=== PATIENT | female | born 2000 | race African-American/Black ===

== ENCOUNTER 2020-08-26 13:33 | Inpatient (IN) | payer MEDICAID, SELFPAY ==
--- NOTE | ~2020-08-26 | CT_ITS ---
EXAMINATION: CT abdomen pelvis w con DATE: 08/26/2020 14:48 INDICATION: Generalized abdominal pain. TECHNIQUE: Computed tomography (CT) of the abdomen and pelvis was performed with 100 mL Omnipaque 350 intravenous contrast. Automated exposure control and iterative reconstruction technique were employe d. The dose-length product was 536.67 mGy-cm. COMPARISON: None. FINDINGS: The visualized portions of the lung bases are clear without pneumonia or pleural effusion. The heart size is normal. No pericardial effusion. The liver demonstrates focal steatosis adjacent to the falciform ligament. The gallbladder, spleen, pancreas, adrenal glands, and kidneys are normal. T he appendix is normal. There is liquid stool in colon suggestive of diarrhea. The distal ileum demons trates mild wall thickening and mucosal hyperemia. There are no dilated loops of bowel. There are no pathologically enlarged lymph nodes. There is no free intraperitoneal fluid. The bones are unremarkab le. IMPRESSION: 1. Terminal ileitis, consistent with infection versus Crohn's disease. Reviewed, dictated and finalized at location A. [employer]
[2020-08-26 13:38] VITALS: BP 121/84; PULSE 56; RESP 18; TEMP 36.8; O2SAT 99
--- NOTE | 2020-08-26 13:59 | ED.ABDPAIN ---
HPI - Abdominal Pain General Chief Complaint: Abdominal Pain <Israel Winn MD - Last Filed: 08/28/20 17:33> Stated Complaint: abdominal pain, weakness <Israel Winn MD - Last Filed: 08/28/20 17:33> Time Seen by Provider: 08/26/20 13:35 <Israel Winn MD - Last Filed: 08/28/20 17:33> History of Present Illness HPI narrative: Nausea and vomiting for the past 8 days. This is associated with both upper and lower abdominal pain. She has had 3 previous ED visits. She reports that she was diagnosed with a UTI the first time, although this does not appear on her discharge paperwork. She reports that she had a CT, which she was told was negative. She was given zofran and dicyclomine, which she has been taking without relief. <Israel Winn MD - Last Filed: 08/28/20 17:33> Related Data Home Medications: Home Medications Medication Instructions Recorded Confirmed dicyclomine 10 mg PO DAILY 08/26/20 08/26/20 ondansetron 4 mg PO TID PRN 08/26/20 08/26/20 <Israel Winn MD - Last Filed: 08/28/20 17:33> Allergies/Adverse Reactions: Allergies Allergy/AdvReac Type Severity Reaction Status Date / Time No Known Allergies Allergy Verified 08/26/20 13:44 <Israel Winn MD - Last Filed: 08/28/20 17:33> Review of Systems Review of Systems: All systems reviewed & are unremarkable except as noted in HPI and below <Israel Winn MD - Last Filed: 08/28/20 17:33> Constitutional: Constitutional: Reports fatigue, Denies fever(s) and Reports weakness <Israel Winn MD - Last Filed: 08/28/20 17:33> Cardiovascular: Cardiovascular: Denies chest pain <Israel Winn MD - Last Filed: 08/28/20 17:33> Respiratory: Respiratory: Denies dyspnea <Israel Winn MD - Last Filed: 08/28/20 17:33> Gastrointestinal: Gastrointestinal: Reports abdominal pain, Reports nausea and Reports vomiting <Israel Winn MD - Last Filed: 08/28/20 17:33> Genitourinary: Genitourinary: Denies hematuria and Denies dysuria <Israel Winn MD - Last Filed: 08/28/20 17:33> Neurologic: Denies confusion, Reports dizziness and Reports weakness <Israel Winn MD - Last Filed: 08/28/20 17:33> [facility] Past Medical History Medical History: Medical History (Updated 08/27/20 @ 16:14 by Solo Hernandez MD) Abdominal pain Healthy female adult Nausea and vomiting in adult <Israel Winn MD - Last Filed: 08/28/20 17:33> Family History Family History: Family History Other Unknown family medical history <Israel Winn MD - Last Filed: 08/28/20 17:33> Social History Social History: Social History Smoking status: Never smoker Alcohol intake: never Substance use: never Gender identity (if verbalized by the patient): Female Spiritual care concerns: No <Israel Winn MD - Last Filed: 08/28/20 17:33> Exam Const: General: no acute distress, alert and ill appearing <Israel Winn MD - Last Filed: 08/28/20 17:33> Orientation/consciousness: patient oriented x3 <Israel Winn MD - Last Filed: 08/28/20 17:33> HENMT: Head: normal to inspection <Israel Winn MD - Last Filed: 08/28/20 17:33> Neck: Neck: normal visual inspection and no lymphadenopathy <Israel Winn MD - Last Filed: 08/28/20 17:33> Resp: Effort & Inspection: normal respiratory effort <Israel Winn MD - Last Filed: 08/28/20 17:33> Auscultation: clear to auscultation bilaterally, no rales, no rhonchi and no wheezes <Israel Winn MD - Last Filed: 08/28/20 17:33> Cardio: Jugular venous distension: no JVD <Israel Winn MD - Last Filed: 08/28/20 17:33> Rate: regular rate <Israel Winn MD - Last Filed: 08/28/20 17:33> Rhythm: regular rhythm <Israel Winn MD - Last Filed:
[2020-08-26 14:06] LABS: Basophils Absolute Auto 0.1 K/mm3 (0.0-0.1); Basophils Percent Auto 0.4 % (0.2-1.2); Eosinophils Percent Auto 0.2 % (0-4.4); Hematocrit 47.3 % (37.0-47.0); Hemoglobin 16.3 g/dL (12.0-15.0); Immature Granulocyte Absolute 0.04 K/mm3 (0.00-0.031); Immature Granulocyte Percent A 0.3 % (0-0.5); Lymphocytes Absolute Auto 1.97 K/mm3 (0.9-3.2); Lymphocytes Percent Auto 14.1 % (18.3-44.2); Mean Corpuscular HGB Conc 34.5 g/dl (32-36); Mean Corpuscular Hemoglobin 29.9 pg (26-34); Mean Corpuscular Volume 86.6 fl (80-100); Mean Platelet Volume 9.9 fl (7.4-10.4); Monocytes Absolute Auto 1.2 K/mm3 (0.1-0.6); Monocytes Percent Auto 8.6 % (2.6-8.5); Neutrophils Absolute Auto 10.7 K/mm3 (1.3-6.7); Neutrophils Percent Auto 76.4 % (45.5-73.1); Platelet Count Result 463 k/mm3 (150-375); Red Blood Count 5.46 M/mm3 (4.2-5.4); Red Cell Distribution Width 11.9 % (11.5-14.5)
[2020-08-26 14:20] LABS: Alanine Aminotransferase 16 U/L (4-35); Albumin Level 4.9 g/dL (3.7-5.6); Alkaline Phosphatase 83 U/L (45-116); Anion Gap 12 mmol/L (8-16); Aspartate Amino Transferase 22 U/L (14-36); Bilirubin,Total 0.8 mg/dL (0.2-1.3); Blood Urea Nitrogen 10 mg/dL (8-21); Carbon Dioxide 36 mmol/L (22-30); Chloride 89 mmol/L (98-107); Estimated CRCL calculation 81 ml/min; Estimated Glomerular Filt Rate > 60; Glucose 99 mg/dL (65-105); Lipase 73 U/L (23-300); Sodium 137 mmol/L (134-143)
[2020-08-26 14:52] LABS: Add Urine Microscopic? YES; Appearance Urine Clear (Clear); Bacteria Urine Trace /hpf; Bilirubin Urine Negative (Negative); Color Urine Yellow (Yellow); Glucose Urine UA Negative (Negative); Ketones Urine Trace mg/dL (Negative); Leukocyte Esterase Ur 1+ LEU/UL (Negative); Mucus Urine Few /lpf; Nitrate Urine Negative (Negative); Protein Urine 2+ mg/dL (Negative); RBC Urine 0-2 /hpf (0-2); Specific Grav Ur 1.019 (1.001-1.035); Squamous Epithelial Cell Urine Many /hpf (Few); Urobilinogen Urine Negative mg/dL (<2.0)
[2020-08-26 14:53] LABS: Blood Urine Negative (Negative)
[2020-08-26] MEDS: DEXTROSE 5%/0.45% SOD CHL 1,000 ML 1000 ML IV CONT (14:56)
[2020-08-26] MEDS: SODIUM CHLORIDE 0.9% IV 1,000 ML 999 ML IV CONT (14:56)
--- NOTE | 2020-08-26 15:20 | PC.NURSE ---
1520: Pt Godfather Steve called wanting information on pt. Told him I could not give him information because he was not on pts chart. He asked if I could speak with pt to get permission to give him information. Pt verified with this RN that it was ok to talk to him about her.
[2020-08-26 15:41] VITALS: BP 135/90; PULSE 91; RESP 18; O2SAT 100
[2020-08-26] MEDS: METOCLOPRAMIDE HCL INJ 10 MG/2 ML VIAL IV PUSH (16:18)
[2020-08-26 17:46] VITALS: BP 119/78; PULSE 64; RESP 18; O2SAT 97
--- NOTE | 2020-08-26 18:23 | ADMGEN ---
This patient, Kirsten Shen, was admitted to Medical Room 342-01. Patient/family oriented to hospital policies and general routines including ID bracelet, bed and alarms, visiting hours, pain management, procedures, bathroom and other care routines, personal items, smoking policy, room service/diet, and visiting hours. Information on how to activate the Rapid Response Team has been discussed. Patient/Family are encouraged to report perceived risks to care and to ask questions if they do not understand what they are told or what they should do.
[2020-08-26] MEDS: SODIUM CHLORIDE 0.9% IV 1,000 ML 125 ML IV CONT (18:28)
[2020-08-26 18:29] VITALS: BMI 34.7
[2020-08-26 18:30] VITALS: BP 137/95; PULSE 79; RESP 18; TEMP 36.2; O2SAT 100; BMI 34.6
[2020-08-26] MEDS: ONDANSETRON INJ 4 MG/2 ML VIAL IV PUSH (18:43)
[2020-08-26] MEDS: CIPROFLOXACIN 400 MG/D5W 200ML 200 ML 200 MG IVPB (19:34)
[2020-08-26 19:46] VITALS: BP 113/67; PULSE 81; RESP 14; TEMP 36.7; O2SAT 99
[2020-08-26] MEDS: metroNIDAZOLE 500 MG/ISO 100ML 500 MG/100 ML BAG 100 MG IVPB (20:42)
--- NOTE | 2020-08-26 21:34 | PM.IMHP ---
H&P: HPI History of Present Illness Date/Time: 08/26/20 21:34 Chief Complaint: abdominal pain, nausea, and vomiting for 8 days Narrative: This is a pleasant 19-year-old female who presented to the hospital with complaint diffuse abdominal pain with associated nausea and vomiting for the past 8 days. Patient has had multiple visits to the emergency department in told various different things including at 1st that she had a urinary tract infection. tonight the patient was evaluated emergency room and CT abdomen pelvis demonstrated terminal ileitis. Routine labs were obtained which showed leukocytosis of 14,000. The patient was treated with IV fluids, Zofran, and antibiotics. ER provider has consulted gastroenterology to evaluate the patient. On my encounter with the patient minerva I found her asleep in bed. Upon waking her she denies any abdominal pain, nausea, or vomiting at this time. It appears that she was given some clear liquids earlier in seemed to have tolerated that. She denies any fever chills, chest pain, shortness of breath, or other symptoms at this time. Review of Systems Review of Systems: All systems reviewed & are unremarkable except as noted in HPI and below PMFSH Past Medical History Medical History Healthy female adult Family History Family History Other Unknown family medical history Social History Social History Smoking status: Never smoker Alcohol intake: never Substance use: never Gender identity (if verbalized by the patient): Female Spiritual care concerns: No Comments Past medical/surgical histories reviewed and unremarkable. Meds Home Medications and Allergies Home Medications Medication Instructions Recorded Confirmed Type dicyclomine 10 mg PO DAILY 08/26/20 08/26/20 History ondansetron 4 mg PO TID PRN 08/26/20 08/26/20 History Allergies Allergy/AdvReac Type Severity Reaction Status Date / Time No Known Allergies Allergy Verified 08/26/20 13:44 Vital Signs Vital Signs - 24 hr 08/26/20 13:38 08/26/20 15:41 08/26/20 17:46 Temperature 36.8 C Pulse Rate 56 L 91 64 Respiratory Rate 18 18 18 Blood Pressure 121/84 135/90 119/78 Pulse Oximetry 99 100 97 08/26/20 18:30 08/26/20 19:46 Temperature 36.2 C L 36.7 C Pulse Rate 79 81 Respiratory Rate 18 14 Blood Pressure 137/95 H 113/67 Pulse Oximetry 100 99 Exam Const: General: cooperative, healthy appearing and no acute distress Nutritional Appearance: obese Orientation/consciousness: patient oriented x3 HENMT: Head: normal to inspection General nose exam: Normal external nose present Face and sinus: normal facial exam Mouth: Yes Normal oral and palatal mucosa present and Yes oropharynx normal Eyes: Pupils: Equal, round and reactive pupils present EOM: EOMs intact bilaterally Neck: Neck: supple and no JVD Thyroid: thyroid normal Lymphatic: lymphadenopathy not noted Resp: Effort & Inspection: normal respiratory effort Auscultation: clear to auscultation bilaterally Cardio: Rate: regular rate Rhythm: regular rhythm Heart sounds: no murmurs GI: Inspection: normal to inspection Auscultation: normal bowel sounds Skin: General skin exam: normal color and no rashes or lesions noted Neuro: General: patient oriented x3 Cranial nerves: Yes CN's II-XII intact bilaterally and Yes Equal, round and reactive pupils present Speech: normal speech Motor exam (neuro): 5/5 motor strength present throughout Sensory Exam: normal sensation Extrem: General: normal to inspection and no edema Psych: Mental Status: mental status grossly normal Affect: normal affect H&P: Results Labs Labs: Short CBC 08/26/20 Range/Units 13:54 WBC 14.0 H (4.5-10.0) K/mm3 Hgb 16.3 H (12.0-15.0) g/dL Hct 47.3 H (37.0-47.0)
[2020-08-27] MEDS: metroNIDAZOLE 500 MG/ISO 100ML 500 MG/100 ML BAG 100 MG IVPB ×3 (03:35→20:48)
[2020-08-27] MEDS: SODIUM CHLORIDE 0.9% IV 1,000 ML 125 ML IV CONT ×3 (03:37→23:52)
[2020-08-27] MEDS: MORPHINE SULFATE (*CRX) 4 MG/ML INJ IV PUSH ×3 (03:40→21:04)
[2020-08-27 05:10] VITALS: BP 136/81; PULSE 65; RESP 14; TEMP 36.2; O2SAT 98
[2020-08-27] MEDS: CIPROFLOXACIN 400 MG/D5W 200ML 200 ML 200 MG IVPB ×2 (05:13→17:46)
[2020-08-27 05:48] LABS: Basophils Percent Auto 0.4 % (0.2-1.2); Eosinophils Absolute Auto 0.1 K/mm3 (0-0.3); Eosinophils Percent Auto 0.7 % (0-4.4); Hematocrit 39.8 % (37.0-47.0); Hemoglobin 13.2 g/dL (12.0-15.0); Immature Granulocyte Absolute 0.03 K/mm3 (0.00-0.031); Immature Granulocyte Percent A 0.3 % (0-0.5); Lymphocytes Absolute Auto 1.93 K/mm3 (0.9-3.2); Lymphocytes Percent Auto 18.5 % (18.3-44.2); Mean Corpuscular HGB Conc 33.2 g/dl (32-36); Mean Corpuscular Hemoglobin 29.8 pg (26-34); Mean Corpuscular Volume 89.8 fl (80-100); Mean Platelet Volume 10.1 fl (7.4-10.4); Monocytes Absolute Auto 0.9 K/mm3 (0.1-0.6); Monocytes Percent Auto 8.8 % (2.6-8.5); Neutrophils Absolute Auto 7.5 K/mm3 (1.3-6.7); Neutrophils Percent Auto 71.3 % (45.5-73.1); Platelet Count Result 325 k/mm3 (150-375); Red Blood Count 4.43 M/mm3 (4.2-5.4); Red Cell Distribution Width 11.9 % (11.5-14.5); White Blood Count 10.5 K/mm3 (4.5-10.0)
[2020-08-27 06:09] LABS: Anion Gap 7 mmol/L (8-16); Blood Urea Nitrogen 6 mg/dL (8-21); Calcium 8.5 mg/dL (8.9-10.7); Carbon Dioxide 31 mmol/L (22-30); Chloride 97 mmol/L (98-107); Estimated CRCL calculation 81 ml/min; Estimated Glomerular Filt Rate > 60; Glucose 87 mg/dL (65-105); Potassium 3.4 mmol/L (3.4-5.0); Sodium 135 mmol/L (134-143)
[2020-08-27 09:48] VITALS: O2SAT 98
[2020-08-27 12:54] VITALS: BMI 34.6
[2020-08-27 14:00] VITALS: BP 125/95; PULSE 71; RESP 16; TEMP 36.6; O2SAT 100
--- NOTE | 2020-08-27 14:20 | PM.IMPN ---
Progress Note: A&P Assessment and Plan (1) Ileitis, terminal: Qualifiers: Digestive disease complication type: without complication Qualified Code(s): K50.00 - Crohn's disease of small intestine without complications Code(s): K50.00 - Crohn's disease of small intestine without complications Status: Acute Assessment and Plan: Patient came in with abdominal pain, nausea and vomiting. CT scan showed terminal ileitis consistent with infection versus Crohn's disease. Patient has never had similar symptoms before and has not seen a GI doctor in the past. She has been placed NPO for bowel rest, continue IV fluids and IV antibiotics. GI has been consulted to see her for further evaluation and treatment Continue monitoring. Antiemetics as needed. Continue IV antibiotics. Stool studies. (2) Leukocytosis: Qualifiers: Leukocytosis type: unspecified Qualified Code(s): D72.829 - Elevated white blood cell count, unspecified Code(s): D72.829 - Elevated white blood cell count, unspecified Status: Acute Assessment and Plan: Improved leukocytosis with admission as well as antibiotics and fluids. Appears to be secondary to ileitis. Monitor CBCD. (3) Dehydration: Code(s): E86.0 - Dehydration Status: Acute Assessment and Plan: Appears to be dehydrated from nausea and vomiting for the last week. Continue IV fluids. Monitor vital signs and urine output closely. Time Spent With Patient Time with patient: 25 - 35 minutes Subjective Date/time seen: 08/27/20 14:20 Interval history: Date of service 08/27/2020: Patient reports her vomiting has stopped. He denies much nausea at this time. He still has some abdominal pain mostly located her and tell her line midline. She denies any radiation of pain. She describes the pain as cramping only sure intermittently. Patient's fevers or chills have resolved. She denies any chest pain, shortness breath, cough, leg swelling, calf pain or any other symptoms at this time any Review of Systems Review of Systems: All systems reviewed & are unremarkable except as noted in HPI and below Exam Narrative: Exam Narrative: General: 19-year-old woman laying flat in bed head elevated at 45?. Appears slightly uncomfortable. In no acute distress. Skin: No jaundice or cyanosis. Good skin turgor. Neck: Full range of motion. Supple. Respiratory: Lungs are clear to auscultation bilaterally. No bony chest wall tenderness. Cardiovascular: The heart has a regular rate and rhythm without murmur. Lower extremities: No lower extremity edema. Distal pulses are easily palpated. No calf tenderness to palpation. Gastrointestinal: Tenderness to palpation of mid abdomen, tenderness to percussion of abdomen. Otherwise it is soft. Active bowel sounds. Psychiatric: Lucid and oriented. Memory intact. Neurologic: No focal deficits. Speech is clear. No facial drooping. Objective Data Vital Signs Vital Signs: Vital Signs - 24 hr 08/26/20 15:41 08/26/20 17:46 08/26/20 18:30 Temperature 97.1 F L Pulse Rate 91 64 79 Respiratory Rate 18 18 18 Blood Pressure 135/90 119/78 137/95 H Pulse Oximetry 100 97 100 08/26/20 19:46 08/27/20 05:10 08/27/20 09:48 Temperature 98.1 F 97.2 F L Pulse Rate 81 65 Respiratory Rate 14 14 Blood Pressure 113/67 136/81 Pulse Oximetry 99 98 98 08/27/20 14:00 Temperature 97.8 F Pulse Rate 71 Respiratory Rate 16 Blood Pressure 125/95 H Pulse Oximetry 100 Intake/Output Intake/Output: Intake & Output 08/24/20 08/25/20 08/26/20 08/27/20 23:59 23:59 23:59 23:59 Intake Total 2049 1600 Output Total 600 Balance 2049 1000 Meds/Results Medications: Active Medications Generic Name Dose Route Start Last Admin Trade Name Freq PRN
--- NOTE | 2020-08-27 16:05 | WPDGICN ---
Assessment and Plan Assessment and plan (1) Ileitis, terminal: Qualifiers: Digestive disease complication type: without complication Qualified Code(s): K50.00 - Crohn's disease of small intestine without complications Code(s): K50.00 - Crohn's disease of small intestine without complications Status: Acute Assessment and Plan: probably infectious in nature, she has been sick for almost 8 days get stool cultures, continue with medical treatment will get inflammatory markers eventually will need colonoscopy, IBD can be in differential but acute onset (2) Nausea and vomiting in adult: Code(s): R11.2 - Nausea with vomiting, unspecified Status: Acute Assessment and Plan: start liquid diet and reassess antiemetics prn (3) Abdominal pain: Code(s): R10.9 - Unspecified abdominal pain Status: Acute (4) Dehydration: Code(s): E86.0 - Dehydration Status: Acute Assessment and Plan: better after fluids (5) Leukocytosis: Qualifiers: Leukocytosis type: unspecified Qualified Code(s): D72.829 - Elevated white blood cell count, unspecified Code(s): D72.829 - Elevated white blood cell count, unspecified Status: Acute Assessment and Plan: improved GI Consult Note Consult date/time: 08/27/20 16:05 Reason for consult: n/v, abdominal pain, ileitis HPI: Kirsten Shen is a 19 year old female with not major medical problems here with new onset of pain in abdominen, moderate to severe, crampy in nature with nausea and vomiting, symptoms started New Year's brijesh. She has been in other ERx3, fist time told thaa probably had uti. Given medication and sent home but still sick, also 2-3 loose stools daily and chills, also mouth dry and feels dehydrated. Denies sick contacts or eating outside. She denies previous GI history, normally has normal BM's. CT abdomen pelvis demonstrated terminal ileitis. Labs showed leukocytosis of 14,000, normal liver enzymes and lipase. She was admitted to hospital and started on antibiotics. Never had colonoscopy. Review of Systems Constitutional: Constitutional: Reports chills Eyes: Eyes: Denies blurry vision ENT: Reports Normal hearing present Cardiovascular: Cardiovascular: Denies lightheadedness Respiratory: Respiratory: Denies dyspnea Gastrointestinal: Gastrointestinal: Reports abdominal pain, Reports diarrhea, Reports nausea and Reports vomiting Genitourinary: Genitourinary: Denies hematuria Musculoskeletal: Musculoskeletal: Denies neck pain Integumentary/Breasts: Skin/Breast: Denies rash Neurologic: Denies confusion Psychiatric: Psychiatric: Denies behavioral changes Endocrine: Endocrine: Denies cold intolerance PMFSH Past Medical History Medical History Healthy female adult Family History Family History Other Unknown family medical history Social History Social History Smoking status: Never smoker Alcohol intake: never Substance use: never Gender identity (if verbalized by the patient): Female Spiritual care concerns: No Meds Home Medications and Allergies Home Medications Medication Instructions Recorded Confirmed Type dicyclomine 10 mg PO DAILY 08/26/20 08/26/20 History ondansetron 4 mg PO TID PRN 08/26/20 08/26/20 History Allergies Allergy/AdvReac Type Severity Reaction Status Date / Time No Known Allergies Allergy Verified 08/26/20 13:44 Vital Signs Vital Signs - 24 hr 08/26/20 17:46 08/26/20 18:30 08/26/20 19:46 Temperature 97.1 F L 98.1 F Pulse Rate 64 79 81 Respiratory Rate 18 18 14 Blood Pressure 119/78 137/95 H 113/67 Pulse Oximetry 97 100 99 08/27/20 05:10 08/27/20 09:48 08/27/20 14:00 Temperature 97.2 F L 97.8 F Pulse Rate 65 71 Respiratory Rate 14 16 Bl
[2020-08-27 22:00] VITALS: BP 128/87; PULSE 64; RESP 21; TEMP 36.1; O2SAT 100
[2020-08-28] MEDS: ONDANSETRON INJ 4 MG/2 ML VIAL IV PUSH (04:30)
[2020-08-28] MEDS: metroNIDAZOLE 500 MG/ISO 100ML 500 MG/100 ML BAG 100 MG IVPB ×3 (04:31→20:07)
[2020-08-28 06:00] VITALS: BP 143/94; PULSE 96; RESP 21; TEMP 36.6; O2SAT 100
[2020-08-28 06:10] LABS: Basophils Percent Auto 0.4 % (0.2-1.2); Eosinophils Absolute Auto 0.1 K/mm3 (0-0.3); Eosinophils Percent Auto 1.2 % (0-4.4); Hematocrit 37.4 % (37.0-47.0); Hemoglobin 12.4 g/dL (12.0-15.0); Immature Granulocyte Absolute 0.03 K/mm3 (0.00-0.031); Immature Granulocyte Percent A 0.3 % (0-0.5); Lymphocytes Absolute Auto 2.04 K/mm3 (0.9-3.2); Lymphocytes Percent Auto 21.6 % (18.3-44.2); Mean Corpuscular HGB Conc 33.2 g/dl (32-36); Mean Corpuscular Volume 87.6 fl (80-100); Monocytes Absolute Auto 0.8 K/mm3 (0.1-0.6); Monocytes Percent Auto 7.9 % (2.6-8.5); Neutrophils Absolute Auto 6.5 K/mm3 (1.3-6.7); Neutrophils Percent Auto 68.6 % (45.5-73.1); Platelet Count Result 308 k/mm3 (150-375); Red Blood Count 4.27 M/mm3 (4.2-5.4); Red Cell Distribution Width 11.6 % (11.5-14.5); White Blood Count 9.5 K/mm3 (4.5-10.0)
[2020-08-28] MEDS: CIPROFLOXACIN 400 MG/D5W 200ML 200 ML 200 MG IVPB ×2 (06:24→17:17)
[2020-08-28 06:55] LABS: Anion Gap 6 mmol/L (8-16); Blood Urea Nitrogen 4 mg/dL (8-21); Calcium 8.5 mg/dL (8.9-10.7); Carbon Dioxide 29 mmol/L (22-30); Chloride 99 mmol/L (98-107); Estimated CRCL calculation 100 ml/min; Estimated Glomerular Filt Rate > 60; Glucose 94 mg/dL (65-105); Magnesium 1.7 mg/dL (1.6-2.3); Potassium 3.4 mmol/L (3.4-5.0); Sodium 134 mmol/L (134-143)
[2020-08-28 07:15] LABS: CRP < 0.5 mg/dL (<1.0)
[2020-08-28 07:22] LABS: Erythrocyte Sedimentation Rate 26 mm/hr (0-20)
[2020-08-28 08:00] VITALS: PULSE 96; RESP 21; O2SAT 100
--- NOTE | 2020-08-28 10:55 | WPDGIPROGNO ---
Progress Note: A&P Assessment and Plan (1) Ileitis, terminal: Qualifiers: Digestive disease complication type: without complication Qualified Code(s): K50.00 - Crohn's disease of small intestine without complications Code(s): K50.00 - Crohn's disease of small intestine without complications Status: Acute Assessment and Plan: probably infectious since acute episode but also could be IBD for which at some point will need to have a colonoscopy continue with antibiotics for now and slowly advance diet, she is feeling better crp was normal stool samples obtained but result pending (2) Nausea and vomiting in adult: Code(s): R11.2 - Nausea with vomiting, unspecified Status: Acute Assessment and Plan: on antiemetics, better (3) Leukocytosis: Qualifiers: Leukocytosis type: unspecified Qualified Code(s): D72.829 - Elevated white blood cell count, unspecified Code(s): D72.829 - Elevated white blood cell count, unspecified Status: Acute Assessment and Plan: resolved (4) Abdominal pain: Code(s): R10.9 - Unspecified abdominal pain Status: Acute Assessment and Plan: improved (5) Dehydration: Code(s): E86.0 - Dehydration Status: Acute Assessment and Plan: treated and resolved Subjective Date/time seen: 08/28/20 10:55 Interval history: today she is feeling better with less abdominal pain but still using ice pack in abdomen, less nauseous and tolerated liquid diet Review of Systems Review of Systems: All systems reviewed & are unremarkable except as noted in HPI and below Exam Const: General: no acute distress HENMT: General nose exam: Normal nares present Mouth: Yes dry mucous membranes Eyes: General: appearance normal, both eyes and all related structures Neck: Neck: no JVD Resp: Auscultation: clear to auscultation bilaterally Cardio: Rate: regular rate Rhythm: regular rhythm GI: Inspection: non-distended GI Palp: Yes Soft to palpation and Yes Tenderness to palpation present (GI) (mid/lower abdomen, no rebound) Auscultation: normal bowel sounds Skin: General skin exam: normal color and no erythema Neuro: Speech: normal speech Motor exam (neuro): Normal motor muscle tone present throughout Extrem: General: normal to inspection Psych: Mental Status: mental status grossly normal Objective Data Vital Signs Vital Signs: Vital Signs - 24 hr 08/27/20 14:00 08/27/20 22:00 08/28/20 06:00 Temperature 97.8 F 97.0 F L 97.9 F Pulse Rate 71 64 96 Respiratory Rate 16 21 H 21 H Blood Pressure 125/95 H 128/87 143/94 H Pulse Oximetry 100 100 100 08/28/20 08:00 Temperature Pulse Rate 96 Respiratory Rate 21 H Blood Pressure Pulse Oximetry 100 Intake/Output Intake/Output: Intake & Output 08/25/20 08/26/20 08/27/20 08/28/20 23:59 23:59 23:59 23:59 Intake Total 0 4120 780 Output Total 2200 700 Balance 2049 1920 80 Meds/Results Medications: Active Medications Generic Name Dose Route Start Last Admin Trade Name Freq PRN Reason Stop Dose Admin Acetaminophen 650 mg 08/26/20 16:42 Acetaminophen 325 Mg Tablet PO Q4H PRN Mild Pain (1-3) or Fever Sodium Chloride 1,000 mls @ 85 mls/hr 08/26/20 16:45 08/28/20 09:50 Normal Saline Iv IV CONT 85 mls/hr .[id number] REENA Infusion Ciprofloxacin/Dextrose 200 mls @ 200 mls/hr 08/26/20 18:00 08/28/20 07:24 Cipro 400 Mg/D5w 200 Ml IVPB Infused Q12H REENA Infusion Metronidazole 500 mg in 100 mls @ 100 mls/hr 08/26/20 20:00 08/28/20 05:55 Flagyl 500 Mg/Iso Soln 100 Ml IVPB Infused Q8H REENA Infusion Morphine Sulfate 4 mg 08/26/20 16:42 08/27/20 21:04 Morphine Sulfate (*Crx) 4 Mg/Ml Inj IV PUSH 4 mg Q2H PRN Administration Pain Rated 7-10 Ondansetron HCl 4 mg 08/26/20 16:42 08/28/20 04:30 Ondansetron Inj 4 Mg/2 Ml Vial IV PUSH 4 mg Q4H PRN Administration Nause
[2020-08-28] MEDS: ACETAMINOPHEN 325 MG TABLET 650 MG PO (13:15)
--- NOTE | 2020-08-28 13:55 | PM.IMPN ---
Progress Note: A&P Assessment and Plan (1) Ileitis, terminal: Qualifiers: Digestive disease complication type: without complication Qualified Code(s): K50.00 - Crohn's disease of small intestine without complications Code(s): K50.00 - Crohn's disease of small intestine without complications Status: Acute Assessment and Plan: Most likely infection at this time Due to the length of her symptoms along with fevers, chills. Also on the differential is viral versus IBD. Patient came in with abdominal pain, nausea and vomiting. CT scan showed terminal ileitis consistent with infection versus Crohn's disease. Patient has never had similar symptoms before and has not seen a GI doctor in the past. Stool cultures were taken and pending We will slowly advance her diet. Continue IV antibiotics Will discontinue IV fluids at this time GI has been consulted and recommends continuing as stated above and she will need a colonoscopy in the future Continue monitoring. Antiemetics as needed. Continue IV antibiotics. Stool studies. (2) Leukocytosis: Qualifiers: Leukocytosis type: unspecified Qualified Code(s): D72.829 - Elevated white blood cell count, unspecified Code(s): D72.829 - Elevated white blood cell count, unspecified Status: Acute Assessment and Plan: Improved leukocytosis with admission as well as antibiotics . Appears to be secondary to infection Monitor CBCD. (3) Dehydration: Code(s): E86.0 - Dehydration Status: Acute Assessment and Plan: Appears to be dehydrated from nausea and vomiting for the last week. Eating and drinking without any issues. Well hydrated. Will stop IV fluids. Monitor vital signs and urine output closely. Time Spent With Patient Time with patient: 25 - 35 minutes Subjective Date/time seen: 08/28/20 13:55 Interval history: Date of service 08/28/2020: Patient reports her vomiting has stopped. She is about to attempt a soft diet. She does have her appetite back with no nausea today. She is still having diarrhea and reports about 2 stools today and about 4 stools yesterday. It is still pretty watery and soft in nature. She still has some abdominal pain mostly located in her mid abdomen and across her upper abdomen. She describes the pain as cramping and intermittent. Patient's fevers or chills have resolved. She denies any chest pain, shortness breath, cough, leg swelling, calf pain or any other symptoms at this time. Review of Systems Review of Systems: All systems reviewed & are unremarkable except as noted in HPI and below Exam Narrative: Exam Narrative: General: 19-year-old woman sitting up in bed watching TV. Appears more comfortable today. In no acute distress. Skin: No jaundice or cyanosis. Good skin turgor. Neck: Full range of motion. Supple. Respiratory: Lungs are clear to auscultation bilaterally. No bony chest wall tenderness. Cardiovascular: The heart has a regular rate and rhythm without murmur. Lower extremities: No lower extremity edema. Distal pulses are easily palpated. No calf tenderness to palpation. Gastrointestinal: Tenderness to palpation of mid abdomen. No rebound or guarding. Otherwise it is soft. Active bowel sounds. Psychiatric: Lucid and oriented. Memory intact. Neurologic: No focal deficits. Speech is clear. No facial drooping. Objective Data Vital Signs Vital Signs: Vital Signs - 24 hr 08/27/20 14:00 08/27/20 22:00 08/28/20 06:00 Temperature 97.8 F 97.0 F L 97.9 F Pulse Rate 71 64 96 Respiratory Rate 16 21 H 21 H Blood Pressure 125/95 H 128/87 143/94 H Pulse Oximetry 100 100 100 08/28/20 08:00 Temperature Pulse Rate 96 Respiratory Rate 21 H Blood Pressure Pulse Oximetry 100 Intake/Output Intake/Output: Inta
[2020-08-28 14:00] VITALS: BP 134/79; PULSE 86; RESP 16; TEMP 36.3; O2SAT 99
[2020-08-28] MEDS: SODIUM CHLORIDE 0.9% IV 1,000 ML 85 ML IV CONT (16:18)
[2020-08-28 21:29] VITALS: BP 130/81; PULSE 88; RESP 16; TEMP 36.1; O2SAT 100
[2020-08-29] MEDS: metroNIDAZOLE 500 MG/ISO 100ML 500 MG/100 ML BAG 100 MG IVPB ×3 (04:38→20:20)
[2020-08-29 06:00] VITALS: BP 122/68; PULSE 60; RESP 16; TEMP 36.4; O2SAT 99
[2020-08-29 06:17] LABS: Alanine Aminotransferase 11 U/L (4-35); Albumin Level 3.6 g/dL (3.7-5.6); Alkaline Phosphatase 60 U/L (45-116); Anion Gap 6 mmol/L (8-16); Aspartate Amino Transferase 19 U/L (14-36); Bilirubin,Total 0.5 mg/dL (0.2-1.3); Blood Urea Nitrogen 3 mg/dL (8-21); Carbon Dioxide 31 mmol/L (22-30); Chloride 100 mmol/L (98-107); Estimated CRCL calculation 90 ml/min; Estimated Glomerular Filt Rate > 60; Glucose 84 mg/dL (65-105); Potassium 3.6 mmol/L (3.4-5.0); Sodium 137 mmol/L (134-143)
[2020-08-29] MEDS: CIPROFLOXACIN 400 MG/D5W 200ML 200 ML 200 MG IVPB ×2 (07:40→18:07)
[2020-08-29 08:00] VITALS: PULSE 60; RESP 16; O2SAT 99
--- NOTE | 2020-08-29 12:07 | WPDGIPROGNO ---
Progress Note: A&P Assessment and Plan (1) Ileitis, terminal: Qualifiers: Digestive disease complication type: without complication Qualified Code(s): K50.00 - Crohn's disease of small intestine without complications Code(s): K50.00 - Crohn's disease of small intestine without complications Status: Acute Assessment and Plan: probably infectious since acute episode however today told me that she just found out that her mother had ulcerative colitis overall much better but will do a colonoscopy tomorrow to assess if IBD continue with antibiotics for now crp was normal stool samples pending, C diff negative (2) Nausea and vomiting in adult: Code(s): R11.2 - Nausea with vomiting, unspecified Status: Acute Assessment and Plan: on antiemetics, better (3) Leukocytosis: Qualifiers: Leukocytosis type: unspecified Qualified Code(s): D72.829 - Elevated white blood cell count, unspecified Code(s): D72.829 - Elevated white blood cell count, unspecified Status: Acute Assessment and Plan: resolved (4) Abdominal pain: Code(s): R10.9 - Unspecified abdominal pain Status: Acute Assessment and Plan: improved (5) Dehydration: Code(s): E86.0 - Dehydration Status: Acute Assessment and Plan: treated and resolved Subjective Date/time seen: 08/29/20 12:07 Interval history: she is doing much better today, tolerating diet, no more pain. Had 3 liquid stools yesterday. Review of Systems Review of Systems: All systems reviewed & are unremarkable except as noted in HPI and below Exam Const: General: no acute distress HENMT: General nose exam: Normal nares present Mouth: Yes dry mucous membranes Eyes: General: appearance normal, both eyes and all related structures Neck: Neck: no JVD Resp: Auscultation: clear to auscultation bilaterally Cardio: Rate: regular rate Rhythm: regular rhythm GI: Inspection: non-distended GI Palp: Yes Soft to palpation and No Guarding due to palpation present (GI) Auscultation: normal bowel sounds Skin: General skin exam: normal color and no erythema Neuro: Speech: normal speech Motor exam (neuro): Normal motor muscle tone present throughout Extrem: General: normal to inspection Psych: Mental Status: mental status grossly normal Objective Data Vital Signs Vital Signs: Vital Signs - 24 hr 08/28/20 14:00 08/28/20 21:29 08/29/20 06:00 Temperature 97.3 F L 96.9 F L 97.5 F L Pulse Rate 86 88 60 Respiratory Rate 16 16 16 Blood Pressure 134/79 130/81 122/68 Pulse Oximetry 99 100 99 Intake/Output Intake/Output: Intake & Output 08/26/20 08/27/20 08/28/20 08/29/20 23:59 23:59 23:59 23:59 Intake Total 0 4120 3240 670 Output Total 2200 2700 Balance 2049 1920 540 670 Meds/Results Medications: Active Medications Generic Name Dose Route Start Last Admin Trade Name Freq PRN Reason Stop Dose Admin Acetaminophen 650 mg 08/26/20 16:42 08/28/20 13:15 Acetaminophen 325 Mg Tablet PO 650 mg Q4H PRN Administration Mild Pain (1-3) or Fever Ciprofloxacin/Dextrose 200 mls @ 200 mls/hr 08/26/20 18:00 08/29/20 08:50 Cipro 400 Mg/D5w 200 Ml IVPB Infused Q12H REENA Infusion Metronidazole 500 mg in 100 mls @ 100 mls/hr 08/26/20 20:00 08/29/20 05:53 Flagyl 500 Mg/Iso Soln 100 Ml IVPB 100 mls/hr Q8H REENA Infusion Morphine Sulfate 4 mg 08/26/20 16:42 08/27/20 21:04 Morphine Sulfate (*Crx) 4 Mg/Ml Inj IV PUSH 4 mg Q2H PRN Administration Pain Rated 7-10 Ondansetron HCl 4 mg 08/26/20 16:42 08/28/20 04:30 Ondansetron Inj 4 Mg/2 Ml Vial IV PUSH 4 mg Q4H PRN Administration Nausea Radiology Results: ITS Impressions Abdomen/Pelvis CT 08/26/20 14:50 IMPRESSION: 1. Terminal ileitis, consistent with infection versus Crohn's disease. Labs Labs: Laboratory Results - last 24 hr 08/29/20 05:
--- NOTE | 2020-08-29 13:13 | PM.IMPN ---
Progress Note: A&P Assessment and Plan (1) Ileitis, terminal: Qualifiers: Digestive disease complication type: without complication Qualified Code(s): K50.00 - Crohn's disease of small intestine without complications Code(s): K50.00 - Crohn's disease of small intestine without complications Status: Acute Assessment and Plan: Most likely infection at this time Due to the length of her symptoms along with fevers, chills. Also on the differential is viral versus IBD. Patient came in with abdominal pain, nausea and vomiting. CT scan showed terminal ileitis consistent with infection versus Crohn's disease. Patient has never had similar symptoms before and has not seen a GI doctor in the past. Stool cultures were taken and pending We will slowly advance her diet. Continue IV antibiotics GI has been consulted and is going to perform a colonoscopy in the morning Continue monitoring. Antiemetics as needed. Continue IV antibiotics. Stool studies. (2) Leukocytosis: Qualifiers: Leukocytosis type: unspecified Qualified Code(s): D72.829 - Elevated white blood cell count, unspecified Code(s): D72.829 - Elevated white blood cell count, unspecified Status: Acute Assessment and Plan: Improved leukocytosis with admission as well as antibiotics . Appears to be secondary to infection Monitor CBCD. (3) Dehydration: Code(s): E86.0 - Dehydration Status: Acute Assessment and Plan: Appears to be dehydrated from nausea and vomiting for the last week. Eating and drinking without any issues. Well hydrated. Will stop IV fluids. Monitor vital signs and urine output closely. Time Spent With Patient Time with patient: 25 - 35 minutes Subjective Date/time seen: 08/29/20 13:13 Interval history: Date of service 08/29/2020: She reports feeling somewhat better today and having her energy back. She denies very little abdominal pain. She has been eating and drinking without any issues. She still reports some lack of appetite but denies any nausea, vomiting. She still has some loose stools but it is better. She denies any fevers, chills, chest pain, shortness of breath, cough, leg swelling, calf pain or any other symptoms at this time. Review of Systems Review of Systems: All systems reviewed & are unremarkable except as noted in HPI and below Exam Narrative: Exam Narrative: General: 19-year-old woman sitting up on the side of the bed after showering. Appears more comfortable today. In no acute distress. Skin: No jaundice or cyanosis. Good skin turgor. Neck: Full range of motion. Supple. Respiratory: Lungs are clear to auscultation bilaterally. No bony chest wall tenderness. Cardiovascular: The heart has a regular rate and rhythm without murmur. Lower extremities: No lower extremity edema. Distal pulses are easily palpated. No calf tenderness to palpation. Gastrointestinal: Minimal tenderness to palpation of mid abdomen. No rebound or guarding. Otherwise it is soft. Active bowel sounds. Psychiatric: Lucid and oriented. Memory intact. Neurologic: No focal deficits. Speech is clear. No facial drooping. Objective Data Vital Signs Vital Signs: Vital Signs - 24 hr 08/28/20 14:00 08/28/20 21:29 08/29/20 06:00 Temperature 97.3 F L 96.9 F L 97.5 F L Pulse Rate 86 88 60 Respiratory Rate 16 16 16 Blood Pressure 134/79 130/81 122/68 Pulse Oximetry 99 100 99 Intake/Output Intake/Output: Intake & Output 08/26/20 08/27/20 08/28/20 08/29/20 23:59 23:59 23:59 23:59 Intake Total 2049 4120 3240 770 Output Total 0 2700 Balance 2049 1920 540 770 Meds/Results Medications: Active Medications Generic Name Dose Route Start Last Admin Trade Name Freq PRN Reason Stop Dose Admin Acetaminophen 650 m
[2020-08-29 15:19] VITALS: BP 123/73; PULSE 92; RESP 18; TEMP 36.2; O2SAT 99
[2020-08-29] MEDS: PEG (High)/E-LYTE SOLN 4,000 ML BTL 4000 ML PO (17:26)
[2020-08-29] MEDS: BISACODYL 5 MG TABLET EC 20 MG PO (18:06)
[2020-08-29 22:00] VITALS: BP 143/72; PULSE 73; RESP 18; TEMP 35.8; O2SAT 100
--- NOTE | 2020-08-30 00:57 | PC.NURSE ---
Patient refusing to drink bowel prep. Staff explained importance of complying with prep in order to have colonoscopy performed. Patient understands that if she does not finish the prep she will not be able to have the test done. Will inform the physician.
[2020-08-30] MEDS: metroNIDAZOLE 500 MG/ISO 100ML 500 MG/100 ML BAG 100 MG IVPB (04:40)
[2020-08-30 05:18] VITALS: BP 139/68; PULSE 74; RESP 18; TEMP 35.9; O2SAT 100
[2020-08-30] MEDS: CIPROFLOXACIN 400 MG/D5W 200ML 200 ML 200 MG IVPB (05:37)
--- NOTE | 2020-08-30 08:53 | PC.NURSE ---
Spoke with Dr. Hernandez, patient would not finish bowel prep despite education given on the necessity of a colonoscopy. MD stated that the patient can do it outpatient.
--- NOTE | 2020-08-30 09:31 | WPDGIPROGNO ---
Progress Note: A&P Assessment and Plan (1) Ileitis, terminal: Qualifiers: Digestive disease complication type: without complication Qualified Code(s): K50.00 - Crohn's disease of small intestine without complications Code(s): K50.00 - Crohn's disease of small intestine without complications Status: Acute Assessment and Plan: probably infectious since acute episode however she just found out that her mother had ulcerative colitis overall much better, I was going to do colonoscopy but she could not take golytely will try colonoscopy as outpatient in 3-4 weeks, will use miralax as bowel prep continue with antibiotics for 5 more days, ok to go home today (2) Nausea and vomiting in adult: Code(s): R11.2 - Nausea with vomiting, unspecified Status: Acute Assessment and Plan: on antiemetics, better (3) Leukocytosis: Qualifiers: Leukocytosis type: unspecified Qualified Code(s): D72.829 - Elevated white blood cell count, unspecified Code(s): D72.829 - Elevated white blood cell count, unspecified Status: Acute Assessment and Plan: resolved (4) Abdominal pain: Code(s): R10.9 - Unspecified abdominal pain Status: Acute Assessment and Plan: improved (5) Dehydration: Code(s): E86.0 - Dehydration Status: Acute Assessment and Plan: treated and resolved Subjective Date/time seen: 08/30/20 09:31 Interval history: no events, she could not take golytely as bowel prep and now would like to have colonoscopy as outpatient. She is feeling like going home. Review of Systems Review of Systems: All systems reviewed & are unremarkable except as noted in HPI and below Exam Const: General: no acute distress HENMT: General nose exam: Normal nares present Mouth: Yes dry mucous membranes Eyes: General: appearance normal, both eyes and all related structures Neck: Neck: no JVD Resp: Auscultation: clear to auscultation bilaterally Cardio: Rate: regular rate Rhythm: regular rhythm GI: Inspection: non-distended GI Palp: Yes Soft to palpation and No Guarding due to palpation present (GI) Auscultation: normal bowel sounds Skin: General skin exam: normal color and no erythema Neuro: Speech: normal speech Motor exam (neuro): Normal motor muscle tone present throughout Extrem: General: normal to inspection Psych: Mental Status: mental status grossly normal Objective Data Vital Signs Vital Signs: Vital Signs - 24 hr 08/29/20 15:19 08/29/20 22:00 08/30/20 05:18 Temperature 97.1 F L 96.5 F L 96.6 F L Pulse Rate 92 73 74 Respiratory Rate 18 18 18 Blood Pressure 123/73 143/72 H 139/68 Pulse Oximetry 99 100 100 Intake/Output Intake/Output: Intake & Output 08/27/20 08/28/20 08/29/20 08/30/20 23:59 23:59 23:59 23:59 Intake Total 4120 3240 2130 300 Output Total 2200 2700 900 Balance 3532 958 9455 300 Meds/Results Medications: Active Medications Generic Name Dose Route Start Last Admin Trade Name Freq PRN Reason Stop Dose Admin Acetaminophen 650 mg 08/26/20 16:42 08/28/20 13:15 Acetaminophen 325 Mg Tablet PO 650 mg Q4H PRN Administration Mild Pain (1-3) or Fever Ciprofloxacin/Dextrose 200 mls @ 200 mls/hr 08/26/20 18:00 08/30/20 06:37 Cipro 400 Mg/D5w 200 Ml IVPB Infused Q12H REENA Infusion Metronidazole 500 mg in 100 mls @ 100 mls/hr 08/26/20 20:00 08/30/20 05:39 Flagyl 500 Mg/Iso Soln 100 Ml IVPB Infused Q8H REENA Infusion Morphine Sulfate 4 mg 08/26/20 16:42 08/27/20 21:04 Morphine Sulfate (*Crx) 4 Mg/Ml Inj IV PUSH 4 mg Q2H PRN Administration Pain Rated 7-10 Ondansetron HCl 4 mg 08/26/20 16:42 08/28/20 04:30 Ondansetron Inj 4 Mg/2 Ml Vial IV PUSH 4 mg Q4H PRN Administration Nausea Radiology Results: ITS Impressions Abdomen/Pelvis CT 08/26/20 14:50 IMPRESSION: 1. Terminal ileitis, consistent with infection versus
--- NOTE | 2020-08-30 09:49 | PM.DS ---
DS: Admitting Diagnosis Admitting Diagnosis Admitting Diagnosis: Abd pain, NVD DS: Discharge Diagnosis Discharge Diagnosis (1) Ileitis, terminal: Qualifiers: Digestive disease complication type: without complication Qualified Code(s): K50.00 - Crohn's disease of small intestine without complications Code(s): K50.00 - Crohn's disease of small intestine without complications Status: Acute Assessment and Plan: Most likely infection at this time Due to the length of her symptoms along with fevers, chills. Also on the differential is viral versus IBD. Patient came in with abdominal pain, nausea and vomiting. CT scan showed terminal ileitis consistent with infection versus Crohn's disease. Patient has never had similar symptoms before and has not seen a GI doctor in the past. Stool cultures were taken and she was negative for C diff, and E coli shiga toxins. Pending salmonella/shigella, Campylobacter, and WBCs. She is tolerating a soft diet at this time without any more pain or nausea. Will continue oral antibiotics as an outpatient for total 7 days treatment. We attempted to have her take a colon prep for a colonoscopy today but she was unable to tolerate the prep. At this time Dr. Alberto feel she is stable for discharge to continue antibiotics and follow-up as an outpatient for an outpatient colonoscopy. Continue on soft diet and slowly advance as tolerated at home. (2) Leukocytosis: Qualifiers: Leukocytosis type: unspecified Qualified Code(s): D72.829 - Elevated white blood cell count, unspecified Code(s): D72.829 - Elevated white blood cell count, unspecified Status: Acute Assessment and Plan: Improved leukocytosis with admission as well as antibiotics . Appears to be secondary to infection of colitis. (3) Dehydration: Code(s): E86.0 - Dehydration Status: Acute Assessment and Plan: Appears to be dehydrated from nausea and vomiting for the last week. Eating and drinking without any issues. Well hydrated. IV fluids were stopped and she is eating and drinking without any vomiting. (4) Hypokalemia: Code(s): E87.6 - Hypokalemia Status: Acute Assessment and Plan: This was replenished. Due to dehydration and diarrhea. DS: Summary Hospital Course Reason for hospitalization: Abd pain, NVD Hospital Course: Patient is a 19-year-old female with no past medical history, who presented to the emergency department with abdominal pain, nausea, vomiting, diarrhea for the last 8 days. Initial vitals showed she was afebrile, regular heart rate at 86 per, blood pressure 121/84, normal oxygenation on room air and respiratory rate. Initial labs showed leukocytosis At 14,000 with a left shift, hypokalemia due to diarrhea, normal LFTs and lipase. Urinalysis showed 2+ protein, 1+ leukocyte esterase, WBCs 7-9 and many squamous cells which is consistent with contamination. Abdomen CT on arrival showed terminal ileitis consistent with infection versus Crohn's disease. She was admitted into the hospital for IV antibiotics for infection, IV fluid hydration and GI consultation for further evaluation. Please see above under each diagnosis as a what transpired during her admission. Status at Discharge Cognitive/behavioral status at discharge: Stable, improved. Time Spent with Patient Time attestation: Total time spent providing and/or coordinating discharge services: 38 Time spent: Greater than 30 minutes Exam Narrative: Exam Narrative: General: 19-year-old woman sitting up in bed eating breakfast. Appears more comfortable today. In no acute distress. Skin: No jaundice or cyanosis. Good skin turgor. Neck: Full ran
[2020-08-31 14:42] LABS: Rotavirus Stool Not Detected
== END 2020-08-30 10:55 | disposition home or self-care (01) | DRG 245 ==
LOC: ANHED 16:42 → ANH3MED 21:50
PROVIDERS: Emergency Medicine; Internal Medicine Gastroenterology; Admitting Provider Internal Medicine; Emergency Provider Family Medicine; Visit Provider Physician Assistant
DX: K50.00 Crohn's disease of small intestine without complications (principal); D72.829 Elevated white blood cell count, unspecified; E86.0 Dehydration; E87.6 Hypokalemia
CPT/HCPCS: 36415; 74177; 80048; 80053; 81001; 81025; 83690; 83735; 85025; 85652; 86140; 87045; 87046; 87086; 87088; 87324; 87425; 87427; 89055; 96361; 96365; 96375; 99285; A9270; J0744; J2270; J2405; J2543; J2765; J7030; Q9967

== ENCOUNTER 2020-09-22 19:36 | Inpatient (IN) | payer MEDICAID, SELFPAY ==
--- NOTE | ~2020-09-22 | CT_ITS ---
EXAMINATION: CT abdomen pelvis w con DATE: 09/22/2020 22:10 INDICATION: Abdominal pain. Nausea and vomiting. TECHNIQUE: Computed tomography (CT) of the abdomen and pelvis was performed with 100 cc Omnipaque 350 intravenous contrast. The dose-length product was 592.90 mGy-cm. Automated exposure control and iter ative reconstruction technique were employed. COMPARISON: CT dated 08/26/2020. FINDINGS: Lung bases are unremarkable. Small hiatal hernia. Heart size normal. No pleural or pericard ial effusion. The liver, spleen, pancreas, adrenal glands and kidneys are unremarkable. There is mild diffuse thick ening of the colon, most significant in the ascending colon, suspicious for colitis. Mild ileocolic l ymphadenopathy, likely reactive. No free air or free fluid. Normal appendix. No abnormal pelvic farida s or fluid collections. IMPRESSION: 1. Mild diffuse thickening of the colon, most prominent at the ascending colon, suspicious for coliti s. Consider infection and inflammatory bowel disease. 2: Mild ileocolic lymphadenopathy, likely reactive. Reviewed, dictated and finalized at location [facility] IMPRESSION: 1. Mild diffuse thickening of the colon, most prominent at the ascending colon, suspicious for colitis. Consider infection and inflammatory bowel disease. 2: Mild ileocolic lymphadenopathy, likely reactive.
[2020-09-22 19:39] VITALS: BP 148/97; PULSE 92; RESP 14; TEMP 36.9; O2SAT 98
[2020-09-22 20:14] LABS: Basophils Percent Auto 0.2 % (0.2-1.2); Hematocrit 43.9 % (37.0-47.0); Hemoglobin 14.7 g/dL (12.0-15.0); Immature Granulocyte Absolute 0.05 K/mm3 (0.00-0.031); Immature Granulocyte Percent A 0.4 % (0-0.5); Lymphocytes Absolute Auto 0.96 K/mm3 (0.9-3.2); Lymphocytes Percent Auto 7.4 % (18.3-44.2); Mean Corpuscular HGB Conc 33.5 g/dl (32-36); Mean Corpuscular Hemoglobin 30.2 pg (26-34); Mean Corpuscular Volume 90.1 fl (80-100); Mean Platelet Volume 9.7 fl (7.4-10.4); Monocytes Absolute Auto 0.2 K/mm3 (0.1-0.6); Monocytes Percent Auto 1.9 % (2.6-8.5); Neutrophils Absolute Auto 11.6 K/mm3 (1.3-6.7); Neutrophils Percent Auto 90.1 % (45.5-73.1); Platelet Count Result 444 k/mm3 (150-375); Red Blood Count 4.87 M/mm3 (4.2-5.4); Red Cell Distribution Width 12.1 % (11.5-14.5); White Blood Count 12.9 K/mm3 (4.5-10.0)
[2020-09-22 20:24] LABS: Alanine Aminotransferase 26 U/L (4-35); Albumin Level 4.7 g/dL (3.7-5.6); Alkaline Phosphatase 86 U/L (45-116); Anion Gap 10 mmol/L (8-16); Aspartate Amino Transferase 25 U/L (14-36); Bilirubin,Total 0.5 mg/dL (0.2-1.3); Blood Urea Nitrogen 8 mg/dL (8-21); Calcium 9.9 mg/dL (8.9-10.7); Carbon Dioxide 26 mmol/L (22-30); Chloride 105 mmol/L (98-107); Estimated CRCL calculation 117 ml/min; Estimated Glomerular Filt Rate > 60; Glucose 128 mg/dL (65-105); Lipase 44 U/L (23-300); Sodium 141 mmol/L (134-143)
--- NOTE | 2020-09-22 20:38 | ED.ABDPAIN ---
HPI - Abdominal Pain General Chief Complaint: Abdominal Pain Stated Complaint: abd pain Time Seen by Provider: 09/22/20 20:37 History of Present Illness HPI narrative: Periumbilical abdominal pain, nausea, and vomiting since this morning. Pain is moderate-severe. Cramp-like. She had similar symptoms in August. She was found to have colitis at that time. She was not able to get a colonoscopy because she could not tolerate the prep. she has not followed up with GI. Related Data Home Medications Medication Instructions Recorded Confirmed dicyclomine 10 mg PO DAILY 08/26/20 08/26/20 ondansetron 4 mg PO TID PRN 08/26/20 08/26/20 Allergies Allergy/AdvReac Type Severity Reaction Status Date / Time No Known Allergies Allergy Verified 08/26/20 13:44 Review of Systems Review of Systems: All systems reviewed & are unremarkable except as noted in HPI and below Constitutional: Constitutional: Reports weakness ENT: Reports dizziness Cardiovascular: Cardiovascular: Denies chest pain Respiratory: Respiratory: Denies dyspnea Gastrointestinal: Gastrointestinal: Reports abdominal pain, Reports nausea and Reports vomiting Genitourinary: Genitourinary: Denies dysuria Neurologic: Reports weakness [facility] Past Medical History Medical History Abdominal pain Healthy female adult Nausea and vomiting in adult Family History Family History Other Unknown family medical history Social History Social History Smoking status: Never smoker Alcohol intake: never Substance use: never Gender identity (if verbalized by the patient): Female Spiritual care concerns: No Exam Const: General: no acute distress, alert and ill appearing Orientation/consciousness: patient oriented x3 HENMT: Head: normal to inspection Resp: Effort & Inspection: normal respiratory effort Auscultation: clear to auscultation bilaterally Cardio: Rate: regular rate Rhythm: regular rhythm GI: Other: not allowing abdominal exam Skin: General skin exam: normal color Neuro: General: patient oriented x3, moves all extremities, no focal motor deficits and CN's II-XI intact bilaterally Speech: normal speech Extrem: General: normal to inspection Course Vital Signs Vital signs: Vital Signs Temperature 36.9 C 09/22/20 19:39 Pulse Rate 92 09/22/20 19:39 Respiratory Rate 14 09/22/20 19:39 Blood Pressure 148/97 H 09/22/20 19:39 Pulse Oximetry 98 09/22/20 19:39 Temperature 36.9 C 09/22/20 19:39 Pulse Rate 78 09/22/20 22:53 Respiratory Rate 20 09/22/20 22:53 Blood Pressure 129/80 09/22/20 22:55 Pulse Oximetry 98 09/22/20 22:53 MDM - Abdominal Pain Differential Diagnosis Differential diagnosis: Likely abdominal pain, acute appendicitis, pancreatitis, small bowel obstruction and other (UC, crohn's disease) Medical Records Attestation: I reviewed the patient's medical records. Lab Data Attestation: I reviewed the patient's lab results. Result diagrams: 09/22/20 20:06 09/22/20 20:06 Labs: Lab Results 09/22/20 09/22/20 09/22/20 Range/Units 20:06 20:06 22:31 WBC 12.9 H (4.5-10.0) K/mm3 RBC 4.87 (4.2-5.4) M/mm3 Hgb 14.7 (12.0-15.0) g/dL Hct 43.9 (37.0-47.0) % MCV 90.1 (80-100) fl MCH 30.2 (26-34) pg MCHC 33.5 (32-36) g/dl RDW 12.1 (11.5-14.5) % Plt Count 444 H (150-375) k/mm3 MPV 9.7 (7.4-10.4) fl Immature Gran % (Auto) 0.4 (0-0.5) % Neut % (Auto) 90.1 H (45.5-73.1) % Lymph % (Auto) 7.4 L (18.3-44.2) % [place] % (Auto) 1.9 L (2.6-8.5) % Eos % (Auto) 0.0 (0-4.4) % Baso % (Auto) 0.2 (0.2-1.2) % Lymph # (Auto) 0.96 (0.9-3.2) K/mm3 [place] # (Auto) 0.2 (0.1-0.6) K/mm3 Eos # (Auto) 0.0 (0-0.3) K/mm3 Baso # (Auto)
--- NOTE | 2020-09-22 21:16 | PC.NURSE ---
Patient unable to provide a urine sample. Patient refusing straight cath.
[2020-09-22] MEDS: SODIUM CHLORIDE 0.9% IV 1,000 ML 999 ML IV CONT (21:27)
[2020-09-22] MEDS: ONDANSETRON INJ 4 MG/2 ML VIAL IV PUSH (21:28)
--- NOTE | 2020-09-22 21:49 | PC.NURSE ---
Patient declined request for repeat VS. Patient states she is still unable to provide a urine sample, patient still refusing straight cath.
--- NOTE | 2020-09-22 21:50 | PC.NURSE ---
Patient states she has the implant for control.
--- NOTE | 2020-09-22 21:51 | PC.NURSE ---
Patient states she has control in, and is not . CT notified.
[2020-09-22 22:40] LABS: Add Urine Microscopic? YES; Appearance Urine Clear (Clear); Bilirubin Urine Negative (Negative); Blood Urine Negative (Negative); Color Urine Straw (Yellow); Glucose Urine UA Negative (Negative); Ketones Urine Trace mg/dL (Negative); Leukocyte Esterase Ur Negative LEU/UL (Negative); Mucus Urine Rare /lpf; Nitrate Urine Negative (Negative); Protein Urine 1+ mg/dL (Negative); RBC Urine 0-2 /hpf (0-2); Urobilinogen Urine Negative mg/dL (<2.0); WBC Urine 0-3 /hpf
[2020-09-22 22:42] LABS: Specific Grav Ur 1.032 (1.001-1.035)
[2020-09-22 22:53] VITALS: PULSE 78; RESP 20; O2SAT 98
[2020-09-22] MEDS: METOCLOPRAMIDE HCL INJ 10 MG/2 ML VIAL IV PUSH (22:54)
[2020-09-22] MEDS: DICYCLOMINE HCL INJ 20 MG/2 ML VIAL IM (22:54)
[2020-09-22 22:55] VITALS: BP 129/80
[2020-09-22] MEDS: CIPROFLOXACIN 400 MG/D5W 200ML 200 ML 200 MG IVPB (22:55)
[2020-09-22 23:31] VITALS: BP 128/79; PULSE 79; RESP 19; TEMP 36.7; O2SAT 98
--- NOTE | 2020-09-22 23:40 | PM.IMHP ---
H&P: HPI History of Present Illness Date/Time: 09/22/20 23:40 Chief Complaint: abdominal pain, nausea, and vomiting for the past day. Narrative: This is a pleasant 19-year-old female who presented to the hospital with complaint diffuse abdominal pain with associated nausea and vomiting for the past day. She woke up this morning feeling nauseated with periumbilical and generalized abdominal pain. She last had a full meal yesterday. Today she vomited >[address] abdomen pelvis demonstrated mild diffuse thickening of the colon, most prominent at the ascending colon, suspicious for colitis. Routine labs were obtained which showed leukocytosis of 12,900. The patient was treated with IV fluids, Zofran, and antibiotics. ER provider has consulted gastroenterology to evaluate the patient. On my encounter with the patient tonight she is vomiting and complaining of diffuse abdominal pain. She denies any fever chills, chest pain, shortness of breath, or other symptoms at this time. She was not able to get a colonoscopy because she could not tolerate the bowel prep and has not followed up with GI. Review of Systems Review of Systems: All systems reviewed & are unremarkable except as noted in HPI and below PMFSH Past Medical History Medical History Abdominal pain Healthy female adult Nausea and vomiting in adult Family History Family History Other Unknown family medical history Social History Social History Smoking status: Never smoker Alcohol intake: never Substance use: never Gender identity (if verbalized by the patient): Female Spiritual care concerns: No Comments Past surgical history is reviewed and noncontributory. Meds Home Medications and Allergies Home Medications Medication Instructions Recorded Confirmed Type No Home Medications 09/23/20 09/23/20 History Allergies Allergy/AdvReac Type Severity Reaction Status Date / Time No Known Allergies Allergy Verified 09/22/20 23:54 Vital Signs Vital Signs - 24 hr 09/22/20 19:39 09/22/20 22:53 09/22/20 22:55 Temperature 36.9 C Pulse Rate 92 78 Respiratory Rate 14 20 Blood Pressure 148/97 H 129/80 Pulse Oximetry 98 98 09/22/20 23:31 Temperature 36.7 C Pulse Rate 79 Respiratory Rate 19 Blood Pressure 128/79 Pulse Oximetry 98 Exam Const: General: cooperative, alert, awake and ill appearing Nutritional Appearance: well nourished Orientation/consciousness: patient oriented x3 HENMT: Head: normal to inspection General nose exam: Normal external nose present Face and sinus: normal facial exam Mouth: Yes Normal oral and palatal mucosa present and Yes oropharynx normal Eyes: Pupils: Equal, round and reactive pupils present EOM: EOMs intact bilaterally Neck: Neck: supple and no JVD Thyroid: thyroid normal Lymphatic: lymphadenopathy not noted Resp: Effort & Inspection: normal respiratory effort Auscultation: clear to auscultation bilaterally Cardio: Rate: regular rate Rhythm: regular rhythm Heart sounds: no murmurs GI: Inspection: normal to inspection GI Palp: Yes abdominal tenderness (diffusely++ ) Auscultation: normal bowel sounds Skin: General skin exam: normal color and no rashes or lesions noted Neuro: General: patient oriented x3 Cranial nerves: Yes CN's II-XII intact bilaterally and Yes Equal, round and reactive pupils present Speech: normal speech Motor exam (neuro): 5/5 motor strength present throughout Sensory Exam: normal sensation Extrem: General: normal to inspection and no edema Psych: Mental Status: mental status grossly normal Affect: normal affect H&P: Results Labs Labs: Short CBC 09/22/20 Range/Units 20:06 WBC 12.9 H (4.5-10.0) K/mm3 Hgb 14.7 (12.0-15.0) g/dL Hct 43.9 (37.0-47.0) % Plt Coun
--- NOTE | 2020-09-22 23:45 | ADMGEN ---
This patient, Kirsten Shen, was admitted to Medical Room 341-01. Patient/family oriented to hospital policies and general routines including ID bracelet, bed and alarms, visiting hours, pain management, procedures, bathroom and other care routines, personal items, smoking policy, room service/diet, and visiting hours. Information on how to activate the Rapid Response Team has been discussed. Patient/Family are encouraged to report perceived risks to care and to ask questions if they do not understand what they are told or what they should do.
[2020-09-22 23:57] VITALS: BMI 36.8
[2020-09-23] MEDS: metroNIDAZOLE 500 MG/ISO 100ML 500 MG/100 ML BAG 100 MG IVPB ×3 (00:08→21:06)
[2020-09-23] MEDS: fentaNYL CITRATE INJ (*CRX) 100 MCG/2 ML VIAL 50 MCG IV PUSH ×7 (00:17→23:12)
[2020-09-23] MEDS: LACTATED RINGERS 1,000 ML 125 ML IV CONT ×2 (01:10→09:59)
[2020-09-23] MEDS: ONDANSETRON INJ 4 MG/2 ML VIAL IV PUSH ×2 (01:30→21:14)
[2020-09-23 05:34] VITALS: BP 132/54; PULSE 78; RESP 18; TEMP 36.9; O2SAT 100
[2020-09-23] MEDS: CIPROFLOXACIN 400 MG/D5W 200ML 200 ML 200 MG IVPB ×2 (10:05→22:13)
--- NOTE | 2020-09-23 13:06 | WPDGICN ---
Assessment and Plan Assessment and plan (1) Nausea and vomiting in adult: Code(s): R11.2 - Nausea with vomiting, unspecified Status: Acute Assessment and Plan: she is sick again, could be gastroenteritis but CT scan reviewed concerning for possible colitis will proceed with egd (assess if pud, also check for celiac disease) and colonoscopy (2) Abdominal pain: Code(s): R10.9 - Unspecified abdominal pain Status: Acute Assessment and Plan: from colitis, also n/v (3) Colitis: Code(s): K52.9 - Noninfective gastroenteritis and colitis, unspecified Status: Acute Assessment and Plan: medical therapy with antibiotics and fluids will try miralax prep this time and proceed with colonoscopy tomorrow (4) Leukocytosis: Qualifiers: Leukocytosis type: unspecified Qualified Code(s): D72.829 - Elevated white blood cell count, unspecified Code(s): D72.829 - Elevated white blood cell count, unspecified Status: Acute Assessment and Plan: on treatment, scopes tomorrow (5) Dehydration: Code(s): E86.0 - Dehydration Status: Acute GI Consult Note Consult date/time: 09/23/20 13:06 Reason for consult: N/V, colitis HPI: Kirsten Shen is a 19 year old female who I met her during recent hospitalization last month after she came with pain in abdomen that started New Year's brijesh with ER visits and finally admitted here, CT abdomen pelvis demonstrated terminal ileitis and also had leukocytosis 14k. She received medical treatment with antibiotics and went home (I was planning to do a colonoscopy in-house but could not tolerate golytely prep and she was going to return for outpatient colonoscopy). She says that bowel movements were normal but yesterday again with diffuse abdominal pain and intractable nausea and vomiting, also noted mild diarrhea. ER evaluation with CT abdomen pelvis demonstrated mild diffuse thickening of the colon, most prominent at the ascending colon, suspicious for colitis. Leukocytosis of 12,900, started on antibiotics and admitted to hospital. Last time crp normal, esr 26 (mild elevated). Mother has ulcerative colitis. She never had scopes. Review of Systems Constitutional: Constitutional: Reports chills Eyes: Eyes: Reports no additional eye complaints ENT: Reports system reviewed and no additional complaints, except as documented Cardiovascular: Cardiovascular: Denies chest pain Respiratory: Respiratory: Denies dyspnea Gastrointestinal: Gastrointestinal: Reports abdominal pain, Reports diarrhea, Reports nausea and Reports vomiting Genitourinary: Genitourinary: Denies hematuria Musculoskeletal: Musculoskeletal: Denies neck pain Integumentary/Breasts: Skin/Breast: Denies dry skin Neurologic: Denies headache(s) Psychiatric: Psychiatric: Denies behavioral changes Endocrine: Endocrine: Denies cold intolerance Hematologic/Lymphatic: Hematologic/Lymphatic: Denies easy bleeding PMFSH Past Medical History Medical History Abdominal pain Healthy female adult Nausea and vomiting in adult Family History Family History Other Unknown family medical history Social History Social History Smoking status: Never smoker Alcohol intake: never Substance use: never Gender identity (if verbalized by the patient): Female Spiritual care concerns: No Meds Home Medications and Allergies Home Medications Medication Instructions Recorded Confirmed Type No Home Medications 09/23/20 09/23/20 History Allergies Allergy/AdvReac Type Severity Reaction Status Date / Time No Known Allergies Allergy Verified 09/22/20 23:54 Vital Signs Vital Signs - 24 hr 09/22/20 19:39 09/22/20 22:53 09/22/20 22:55 Temperature 98.5 F Pulse Rate 92 78 Respirato
[2020-09-23 13:20] VITALS: BMI 36.8
--- NOTE | 2020-09-23 13:52 | PM.IMPN ---
Progress Note: A&P Assessment and Plan (1) Colitis: Code(s): K52.9 - Noninfective gastroenteritis and colitis, unspecified Status: Acute Assessment and Plan: Recently treated for terminal ileitis for possible infectious etiology vs Crohn's disease. CT abdomen/pelvis on 09/22/2020 showed mild diffuse thickening of the colon, most prominent in the ascending colon, suspicious for colitis. inflammatory bowel disease versus infectious etiology is being considered. She has mild leukocytosis. She is afebrile. Continue Cipro and Flagyl continue IV fluid rehydration; LR at 90 ml/hr NPO diet. Planning for colonoscopy an EGD tomorrow. Gastroenterology has been consulted and recommendations are appreciated. (2) Nausea and vomiting in adult: Code(s): R11.2 - Nausea with vomiting, unspecified Status: Acute Assessment and Plan: Improved. No further episodes of vomiting today. Most likely secondary to colitis as above. Continue IV fluids analgesics and antiemetics as needed (3) Dehydration: Code(s): E86.0 - Dehydration Status: Acute Assessment and Plan: secondary to nausea, vomiting, and poor p.o. intake. She has been rehydrated with IV fluids. Electrolytes are stable at this time. She appears euvolemic on exam. Continue gentle IV hydration while NPO (4) Leukocytosis: Qualifiers: Leukocytosis type: unspecified Qualified Code(s): D72.829 - Elevated white blood cell count, unspecified Code(s): D72.829 - Elevated white blood cell count, unspecified Status: Acute Assessment and Plan: secondary to colitis, as above. Monitor CBC Subjective Date/time seen: 09/23/20 13:52 Interval history: date of service: 09/23/2020 Kirsten Shen is a healthy 19-year-old female with history of recent hospitalization in August 2020 for terminal ileitis who is seen in follow-up for abdominal pain with suspicion for colitis. she reports that her pain is minimally improved today. Currently rating her pain as 8/10. She states that the pain medicine will help for about 30 minutes and then her pain comes back and is still pretty severe. She reports a soreness/achiness, especially in the periumbilical region. She was vomiting yesterday but today is only endorsing nausea. Denies fever or chills, but does state that she was having sweats earlier. she has been NPO. Her last bowel movement was yesterday. Denies urinary symptoms. Denies shortness of breath, cough, chest pain, palpitations. Denies weakness, fatigue, dizziness, or lightheadedness. Review of Systems Review of Systems: All systems reviewed & are unremarkable except as noted in HPI and below Exam Narrative: Exam Narrative: Ms. Shen is A well-nourished, well-appearing 19-year-old female who is lying supine in bed. she appears comfortable and is in NARD. HR 78, BP 132/54, R 18, T 98.4?, 100% on room air Neuro: awake, alert and oriented x4, speech clear, no focal neuro deficits noted HEENMT: normocephalic, atraumatic, EOMI, sclerae anicteric, moist oral mucosa, tongue midline, nares patent Neck: supple, no lymphadenopathy Respiratory: clear to auscultation bilaterally, nonlabored breathing Cardio: regular rate, regular rhythm with S1-S2 Abdomen: nondistended, normoactive bowel sounds, soft, tender to palpation in periumbilical region, no rigidity or guarding Extremities: no edema, erythema, cyanosis, clubbing, or tenderness to palpation, DP pulses 2+ bilaterally Skin: no rashes or lesions, warm and dry Psych: appropriate mood and affect, judgment and insight intact Objective Data Vital Signs Vital Signs: Vital Signs - 24 hr 09/22/20 19:39 09/22/20 22:53 09/22/20 22:55 Temperature 98.5 F Pulse Rate 92 78 Respiratory Rate 14 20 Blood Pressure 148/97 H 129/80 Pulse Oximetry 98 98 09/22/20 23:31 09/23/20 05:34 Temperature 98.1 F 98.
[2020-09-23 14:00] VITALS: BP 110/53; PULSE 79; RESP 16; TEMP 36.1; O2SAT 100
[2020-09-23] MEDS: LACTATED RINGERS 1,000 ML 90 ML IV CONT (14:31)
[2020-09-23 16:25] LABS: Basophils Percent Auto 0.2 % (0.2-1.2); Eosinophils Percent Auto 0.2 % (0-4.4); Hematocrit 39.2 % (37.0-47.0); Immature Granulocyte Absolute 0.03 K/mm3 (0.00-0.031); Immature Granulocyte Percent A 0.3 % (0-0.5); Lymphocytes Absolute Auto 1.52 K/mm3 (0.9-3.2); Lymphocytes Percent Auto 17.2 % (18.3-44.2); Mean Corpuscular HGB Conc 33.2 g/dl (32-36); Mean Corpuscular Hemoglobin 29.9 pg (26-34); Mean Corpuscular Volume 90.1 fl (80-100); Mean Platelet Volume 9.9 fl (7.4-10.4); Monocytes Absolute Auto 0.8 K/mm3 (0.1-0.6); Monocytes Percent Auto 9.2 % (2.6-8.5); Neutrophils Absolute Auto 6.4 K/mm3 (1.3-6.7); Neutrophils Percent Auto 72.9 % (45.5-73.1); Platelet Count Result 354 k/mm3 (150-375); Red Blood Count 4.35 M/mm3 (4.2-5.4); Red Cell Distribution Width 12.1 % (11.5-14.5); White Blood Count 8.8 K/mm3 (4.5-10.0)
[2020-09-23] MEDS: BISACODYL 5 MG TABLET EC 20 MG PO (16:26)
[2020-09-23] MEDS: polyethylene glycoL 3350 238 GM BOTTLE PO (16:27)
[2020-09-23 16:39] LABS: Anion Gap 6 mmol/L (8-16); Blood Urea Nitrogen 11 mg/dL (8-21); Calcium 8.4 mg/dL (8.9-10.7); Carbon Dioxide 27 mmol/L (22-30); Chloride 105 mmol/L (98-107); Estimated CRCL calculation 103 ml/min; Estimated Glomerular Filt Rate > 60; Glucose 81 mg/dL (65-105); Potassium 3.6 mmol/L (3.4-5.0); Sodium 138 mmol/L (134-143)
[2020-09-23 19:39] VITALS: BP 129/64; PULSE 63; RESP 17; TEMP 36.3; O2SAT 100
[2020-09-24] VITALS (13 sets, daily range): BP systolic 123–151; BP diastolic 55–109; PULSE 63–120; RESP 14–32; TEMP 36.2–37.2; O2SAT 96–100
[2020-09-24] MEDS: LACTATED RINGERS 1,000 ML 90 ML IV CONT (00:47)
[2020-09-24] MEDS: MAGNESIUM CITRATE 300 ML BTL PO (04:00)
[2020-09-24 06:00] LABS: Hematocrit 40.2 % (37.0-47.0); Hemoglobin 13.6 g/dL (12.0-15.0); Mean Corpuscular HGB Conc 33.8 g/dl (32-36); Mean Corpuscular Hemoglobin 30.2 pg (26-34); Mean Corpuscular Volume 89.3 fl (80-100); Platelet Count Result 384 k/mm3 (150-375); White Blood Count 9.8 K/mm3 (4.5-10.0)
[2020-09-24 06:05] LABS: Anion Gap 7 mmol/L (8-16); Blood Urea Nitrogen 10 mg/dL (8-21); Calcium 8.9 mg/dL (8.9-10.7); Carbon Dioxide 27 mmol/L (22-30); Chloride 103 mmol/L (98-107); Estimated CRCL calculation 117 ml/min; Estimated Glomerular Filt Rate > 60; Glucose 94 mg/dL (65-105); Potassium 3.8 mmol/L (3.4-5.0); Sodium 137 mmol/L (134-143)
--- NOTE | 2020-09-24 06:50 | PC.NURSE ---
Pt left floor to GI Lab via wheelchair
[2020-09-24] MEDS: ONDANSETRON INJ 4 MG/2 ML VIAL IV PUSH (07:12)
[2020-09-24] MEDS: LACTATED RINGERS 1,000 ML 150 ML IV CONT (07:15)
--- NOTE | 2020-09-24 07:37 | WPDANESEPPF ---
Anes - Initial Pre Proc Eval Procedure: Operation Date: 09/24/20 13:30 Proposed Procedures p Esophagogastroduodenoscopy & Colonoscopy - Solo Hernandez MD Date/Time: 09/24/20 07:37 Surgeon: Johanny Flanagan PA-C Pre Op Diagnosis: Colitis Patient Data Age: 19 Gender: F Height: 5 ft 2 in Weight: 91.3 kg Last Vital Signs Temp 98.1 F 09/24/20 06:10 Pulse 92 09/24/20 07:17 Resp 22 H 09/24/20 07:17 BP 151/109 H 09/24/20 07:17 Pulse Ox 100 09/24/20 07:17 Allergies Allergy/AdvReac Type Severity Reaction Status Date / Time No Known Allergies Allergy Verified 09/24/20 07:16 Home Medications Medication Instructions Recorded Confirmed Type No Home Medications 09/23/20 09/23/20 History Laboratory Tests 09/23/20 09/23/20 09/24/20 16:07 16:07 05:22 WBC 8.8 K/mm3 K/mm3 9.8 K/mm3 K/mm3 (4.5-10.0) (4.5-10.0) RBC 4.35 M/mm3 M/mm3 4.50 M/mm3 M/mm3 (4.2-5.4) (4.2-5.4) Hgb 13.0 g/dL g/dL 13.6 g/dL g/dL (12.0-15.0) (12.0-15.0) Hct 39.2 % % 40.2 % % (37.0-47.0) (37.0-47.0) MCV 90.1 fl fl 89.3 fl fl (80-100) (80-100) MCH 29.9 pg pg 30.2 pg pg (26-34) (26-34) MCHC 33.2 g/dl g/dl 33.8 g/dl g/dl (32-36) (32-36) RDW 12.1 % % 12.0 % % (11.5-14.5) (11.5-14.5) Plt Count 354 k/mm3 k/mm3 384 k/mm3 H k/mm3 (150-375) (150-375) MPV 9.9 fl fl 10.0 fl fl (7.4-10.4) (7.4-10.4) Immature Gran % (Auto) 0.3 % % (0-0.5) Neut % (Auto) 72.9 % % (45.5-73.1) Lymph % (Auto) 17.2 % L % (18.3-44.2) [place] % (Auto) 9.2 % H % (2.6-8.5) Eos % (Auto) 0.2 % % (0-4.4) Baso % (Auto) 0.2 % % (0.2-1.2) Lymph # (Auto) 1.52 K/mm3 K/mm3 (0.9-3.2) [place] # (Auto) 0.8 K/mm3 H K/mm3 (0.1-0.6) Eos # (Auto) 0.0 K/mm3 K/mm3 (0-0.3) Baso # (Auto) 0.0 K/mm3 K/mm3 (0.0-0.1) Abs Immat Gran (auto) 0.03 K/mm3 K/mm3 (0.00-0.031) Absolute Neuts (auto) 6.4 K/mm3 K/mm3 (1.3-6.7) Absolute Nucleated RBC 0.0 K/mm3 K/mm3 (0.0-0.012) Nucleated RBC % 0.0 % % (0.0-0.2) Sodium 138 mmol/L mmol/L (134-143) Potassium 3.6 mmol/L mmol/L (3.4-5.0) Chloride 105 mmol/L mmol/L (98-107) Carbon Dioxide 27 mmol/L mmol/L (22-30) Anion Gap 6 mmol/L L mmol/L (8-16) BUN 11 mg/dL mg/dL (8-21) Creatinine 0.80 mg/dL mg/dL (0.7-1.0) Estim Creat Clear Calc 103 ml/min ml/min Estimated GFR > 60 (59 - ) Glucose 81 mg/dL mg/dL (65-105) Calcium 8.4 mg/dL L mg/dL (8.9-10.7) 09/24/20 05:22 WBC RBC Hgb Hct MCV MCH MCHC RDW Plt Count MPV Immature Gran % (Auto) Neut % (Auto) Lymph % (Auto) [place] % (Auto) Eos % (Auto) Baso % (Auto) Lymph # (Auto) [place] # (Auto) Eos # (Auto) Baso # (Auto) Abs Immat Gran (auto) Absolute Neuts (auto) Absolute Nucleated RBC Nucleated RBC % Sodium 137 mmol/L mmol/L (134-143) Potassium 3.8 mmol/L mmol/L (3.4-5.0) Chloride 103 mmol/L mmol/L (98-107) Carbon Dioxide 27 mmol/L mmol/L (22-30) Anion Gap 7 mmol/L L mmol/L (8-16) BUN 10 mg/dL mg/dL (8-21) Creatinine 0.70 mg/dL mg/dL (0.7-1.0) Estim Creat Clear Calc 117 ml/min ml/min Estimated GFR > 60 (59 - ) Glucose 94 mg/dL mg/dL (65-105) Calcium 8.9 mg/dL mg/dL (8.9-10.7) Patient hx anesthesia problems: other (has nausea and emesis now; will kyle Bullock and Anni) Family hx anesthesia problems: none PMFSH Past Medical History Medical History Abdominal pain Healthy female adult Nausea and vomiting in adult Family Hist
[2020-09-24] MEDS: FAMOTIDINE 20 MG/2 ML VIAL IV PUSH (07:41)
--- NOTE | 2020-09-24 09:20 | PC.NURSE ---
Patient returned from GI lab per alina. Report received from BRIJESH Veras.
[2020-09-24] MEDS: metroNIDAZOLE 500 MG/ISO 100ML 500 MG/100 ML BAG 100 MG IVPB ×2 (09:26→20:33)
[2020-09-24] MEDS: fentaNYL CITRATE INJ (*CRX) 100 MCG/2 ML VIAL 50 MCG IV PUSH (09:39)
[2020-09-24] MEDS: PROMETHAZINE HCL 25 MG/ML AMPUL 12.5 MG IV PUSH ×2 (10:05→20:34)
[2020-09-24] MEDS: methylPREDNISolone SOD SUCC 40 MG VIAL IV PUSH ×2 (10:33→17:22)
[2020-09-24] MEDS: CIPROFLOXACIN 400 MG/D5W 200ML 200 ML 200 MG IVPB ×2 (10:33→22:28)
[2020-09-24] MEDS: PANTOPRAZOLE SODIUM IV 40 MG VIAL IV PUSH ×2 (10:33→20:33)
--- NOTE | 2020-09-24 11:43 | PM.IMPN ---
Progress Note: A&P Assessment and Plan (1) Colitis: Code(s): K52.9 - Noninfective gastroenteritis and colitis, unspecified Status: Acute Assessment and Plan: Recently hospitalized 1 month ago and treated for terminal ileitis with possible infectious etiology vs Crohn's disease. CT abdomen/pelvis on 09/22/2020 showed mild diffuse thickening of the colon, most prominent in the ascending colon, suspicious for colitis. Colonoscopy today demonstrated mild patchy ileitis and colitis. Crohn's disease vs infectious etiology considered. Leukocytosis has resolved. She remains afebrile. Continue Cipro and Flagyl Started on IV Solu-Medrol 40 mg b.i.d. per GI for possible IBD. Biopsies are pending. SBFT will be ordered upon improvement of nausea, per GI. Continue IV fluid rehydration; LR at 75 ml/hr Advanced to full liquid diet. Analgesics available as needed for pain Gastroenterology is following and recommendations are appreciated. (2) Erosive gastritis: Code(s): K29.60 - Other gastritis without bleeding Status: Acute Assessment and Plan: EGD performed today showed moderate to severe erosive gastritis. Biopsies were collected. Continue Protonix 40 mg b.i.d. Avoid NSAIDs and aspirin (3) Nausea and vomiting in adult: Code(s): R11.2 - Nausea with vomiting, unspecified Status: Acute Assessment and Plan: Most likely secondary to colitis and gastritis. She felt very nauseous following of emesis. Continue IV fluids Antiemetics as needed Advance diet as tolerated. (4) Dehydration: Code(s): E86.0 - Dehydration Status: Acute Assessment and Plan: Secondary to nausea, vomiting, and poor p.o. intake. She has been rehydrated with IV fluids. Electrolytes are stable at this time. She appears euvolemic on exam. Continue gentle IV hydration given continued N/V. Full liquid diet. (5) Leukocytosis: Qualifiers: Leukocytosis type: unspecified Qualified Code(s): D72.829 - Elevated white blood cell count, unspecified Code(s): D72.829 - Elevated white blood cell count, unspecified Status: Acute Assessment and Plan: Resolved. [place] to be secondary to colitis. Monitor CBC Subjective Date/time seen: 09/24/20 11:43 Interval history: date of service: 09/24/2020 Kirsten Shen is a healthy 19-year-old female with history of recent hospitalization in August 2020 for terminal ileitis who is seen in follow-up for colitis and gastritis. She is still feeling very nauseous. She did have an episode of emesis this morning. She is sleeping during my encounter and I limited questions to allow her to rest. She continues to endorse pain, but states that it is improved and currently rating as 5-6/10. Denies any additional pain. Denies fever, chills, headache, myalgias. No dizziness, lightheadedness, shortness of breath. Review of Systems Review of Systems: All systems reviewed & are unremarkable except as noted in HPI and below Exam Narrative: Exam Narrative: Ms. Shen is A well-nourished, well-appearing 19-year-old female who is lying supine in bed. she appears comfortable and is in NARD. HR 63, BP 124/84, RR 14, T 97.2?, 100% on room air Neuro: Asleep, awakes to verbal stimuli. Alert and oriented x4, speech clear, no focal neuro deficits noted HEENMT: normocephalic, atraumatic, EOMI, sclerae anicteric, moist oral mucosa, tongue midline, nares patent Neck: supple, no lymphadenopathy Respiratory: clear to auscultation bilaterally, nonlabored breathing Cardio: regular rate, regular rhythm with S1-S2 Abdomen: nondistended, normoactive bowel sounds, soft, tender to palpation in periumbilical region, no rigidity or guarding. She has an ice pack resting on her mid abdomen. Extremities: no edema, erythema, cyanosis, clubbing, or tenderness to palpation, DP pulses 2+ bilaterally Skin: no rash
[2020-09-24] MEDS: LACTATED RINGERS 1,000 ML 75 ML IV CONT (17:21)
[2020-09-24] MEDS: MORPHINE SULFATE (*CRX) 2 MG/ML INJ IV PUSH (20:35)
[2020-09-25 06:00] VITALS: BP 125/65; PULSE 57; RESP 12; TEMP 36.9; O2SAT 100
[2020-09-25 07:47] LABS: Hematocrit 37.4 % (37.0-47.0); Hemoglobin 12.3 g/dL (12.0-15.0); Mean Corpuscular HGB Conc 32.9 g/dl (32-36); Mean Corpuscular Hemoglobin 29.7 pg (26-34); Mean Corpuscular Volume 90.3 fl (80-100); Mean Platelet Volume 10.3 fl (7.4-10.4); Platelet Count Result 355 k/mm3 (150-375); Red Blood Count 4.14 M/mm3 (4.2-5.4); White Blood Count 10.8 K/mm3 (4.5-10.0)
[2020-09-25 08:04] LABS: Anion Gap 4 mmol/L (8-16); Blood Urea Nitrogen 12 mg/dL (8-21); Calcium 8.7 mg/dL (8.9-10.7); Carbon Dioxide 29 mmol/L (22-30); Chloride 105 mmol/L (98-107); Estimated CRCL calculation 103 ml/min; Estimated Glomerular Filt Rate > 60; Glucose 87 mg/dL (65-105); Magnesium 1.9 mg/dL (1.6-2.3); Potassium 4.2 mmol/L (3.4-5.0); Sodium 138 mmol/L (134-143)
[2020-09-25] MEDS: MORPHINE SULFATE (*CRX) 2 MG/ML INJ IV PUSH ×3 (08:48→22:27)
[2020-09-25] MEDS: PANTOPRAZOLE SODIUM IV 40 MG VIAL IV PUSH ×2 (08:48→22:27)
[2020-09-25] MEDS: methylPREDNISolone SOD SUCC 40 MG VIAL IV PUSH ×2 (08:48→17:07)
--- NOTE | 2020-09-25 08:48 | WPDANESPN ---
Anes - Prog Note Post-Op Date/Time: 09/25/20 08:48 Cardiovascular status: normal Respiratory status: normal Airway patency: baseline Mental status: baseline Post-Op hydration status: normal Vital Signs: Last Vital Signs Temp 36.9 C 09/25/20 06:00 Pulse 57 L 09/25/20 06:00 Resp 12 09/25/20 06:00 BP 125/65 09/25/20 06:00 Pulse Ox 100 09/25/20 06:00 Pain Score (VAS): no complaints I/O: Intake & Output 09/24/20 09/25/20 09/25/20 23:59 07:59 15:59 Intake Total 940 500 120 Output Total 600 650 Balance 340 -150 120 Laboratory Tests 09/25/20 06:41 09/25/20 06:41 09/25/20 09/25/20 06:41 06:41 WBC 10.8 H RBC 4.14 L Hgb 12.3 Hct 37.4 MCV 90.3 MCH 29.7 MCHC 32.9 RDW 12.0 Plt Count 355 MPV 10.3 Sodium 138 Potassium 4.2 Chloride 105 Carbon Dioxide 29 Anion Gap 4 L BUN 12 Creatinine 0.80 Estim Creat Clear Calc 103 Estimated GFR > 60 Glucose 87 Calcium 8.7 L Magnesium 1.9 Post-procedural complaints: none Patient Feedback: Patient satisfied with anesthetic care.
[2020-09-25] MEDS: metroNIDAZOLE 500 MG/ISO 100ML 500 MG/100 ML BAG 100 MG IVPB ×2 (08:57→22:25)
[2020-09-25 10:07] VITALS: O2SAT 97
[2020-09-25] MEDS: CIPROFLOXACIN 400 MG/D5W 200ML 200 ML 200 MG IVPB ×2 (10:08→22:27)
--- NOTE | 2020-09-25 10:52 | WPDGIPROGNO ---
Progress Note: A&P Assessment and Plan (1) Erosive gastritis: Code(s): K29.60 - Other gastritis without bleeding Status: Acute Assessment and Plan: Erosive gastritis identified by endoscopy yesterday. Plan to continue on PPI therapy. Allow bland diet as tolerated. Follow-up at some point may be advised. Histology pending. (2) Colitis: Code(s): K52.9 - Noninfective gastroenteritis and colitis, unspecified Status: Acute Assessment and Plan: Patient had patchy colitis by endoscopy. Differential diagnosis includes infection and possible Crohn's disease. Histology is pending. Currently on a trial of steroids. No improvement noted today. Histology will be important. Serology may be a consideration. (3) Ileitis, terminal: Qualifiers: Digestive disease complication type: without complication Qualified Code(s): K50.00 - Crohn's disease of small intestine without complications Code(s): K50.00 - Crohn's disease of small intestine without complications Status: Acute (4) Abdominal pain: Code(s): R10.9 - Unspecified abdominal pain Status: Acute Assessment and Plan: Abdominal pain persists. Currently in the upper abdomen. No response to PPI and or steroids today. Await final histology. Continue medication trial. Subjective Date/time seen: 09/25/20 10:52 Patient alert this morning remains uncomfortable at rest period complains of mid upper abdominal discomfort that is constant. She states is crampy in nature. This is been ongoing for several months. No change overnight. No fever identified. Review of Systems Review of Systems: All systems reviewed & are unremarkable except as noted in HPI and below Exam Narrative: Exam Narrative: Physical exam patient is uncomfortable at rest. HEENT exam reveals no icterus. Lungs are clear. Heart without murmur. Abdomen mildly obese. Bowel sounds are present soft she notices discomfort in the upper abdomen. Extremities are without clubbing cyanosis or. Objective Data Vital Signs Vital Signs: Vital Signs - 24 hr 09/24/20 11:10 09/24/20 13:45 09/24/20 17:52 Temperature 97.2 F L 97.4 F L 98.5 F Pulse Rate 63 84 68 Respiratory Rate 14 16 16 Blood Pressure 124/84 126/76 126/66 Pulse Oximetry 100 100 96 09/24/20 19:44 09/25/20 06:00 09/25/20 10:07 Temperature 97.7 F 98.5 F Pulse Rate 78 57 L Respiratory Rate 14 12 Blood Pressure 123/55 L 125/65 Pulse Oximetry 100 100 97 Intake/Output Intake/Output: Intake & Output 09/22/20 09/23/20 09/24/20 09/25/20 23:59 23:59 23:59 23:59 Intake Total 1200 3150 3240 720 Output Total 1700 1400 650 Balance 1200 1450 1840 70 Meds/Results Medications: Active Medications Generic Name Dose Route Start Last Admin Trade Name Freq PRN Reason Stop Dose Admin Acetaminophen 650 mg 09/24/20 11:51 Acetaminophen 325 Mg Tablet PO Q4H PRN Pain 1-3 Hydrocodone Bitart/Acetaminophen 1 tab 09/24/20 11:51 Hydrocodone/Acetaminophen (*Crx) 5-325 Mg Tablet PO Q4H PRN Pain Rated 4-6 Ciprofloxacin/Dextrose 200 mls @ 200 mls/hr 09/23/20 10:00 09/25/20 10:08 Cipro 400 Mg/D5w 200 Ml IVPB 200 mls/hr Q12H REENA Administration Metronidazole 500 mg in 100 mls @ 100 mls/hr 09/23/20 09:00 09/25/20 09:57 Flagyl 500 Mg/Iso Soln 100 Ml IVPB Infused Q12H REENA Infusion Lactated Ringer's 1,000 mls @ 75 mls/hr 09/22/20 23:00 09/24/20 17:21 Lr - Lactated Ringers Iv IV CONT 75 mls/hr .[id number] REENA Administration Methylprednisolone Sodium Succinate 40 mg 09/24/20 09:10 09/25/20 08:48 Methylprednisolone Sod Succ 40 Mg Vial IV PUSH 40 mg BID REENA Administration Morphine Sulfate 2 mg 09/24/20 11:51 09/25/20 08:48 Morphine Sulfate (*Crx) 2 Mg/Ml Inj IV PUSH 2 mg Q4H PRN Administration Pain Rated 7-10 Pantoprazole Sodium 40 mg 09/24/20 09:00 09/25/20 08:48 Pantoprazole Sodium Iv 4
[2020-09-25] MEDS: LACTATED RINGERS 1,000 ML 75 ML IV CONT (11:58)
--- NOTE | 2020-09-25 13:48 | PM.IMPN ---
Progress Note: A&P Assessment and Plan (1) Colitis: Code(s): K52.9 - Noninfective gastroenteritis and colitis, unspecified Status: Acute Assessment and Plan: Recently hospitalized 1 month ago and treated for terminal ileitis with possible infectious etiology vs Crohn's disease. CT abdomen/pelvis on 09/22/2020 showed mild diffuse thickening of the colon, most prominent in the ascending colon, suspicious for colitis. Colonoscopy performed 09/[address] Alberto demonstrated mild patchy ileitis and colitis. Crohn's disease vs infectious etiology considered. She remains afebrile. Leukocytosis resolved but now starting to trend upward again, which is likely related to IV steroids. Continue Cipro and Flagyl Continue IV Solu-Medrol 40 mg b.i.d. per GI for possible IBD. Biopsies are pending. Will discontinue IV fluids as patient is tolerating p.o. intake and has been adequately rehydrated Advance to bland diet Analgesics available as needed for pain Gastroenterology is following and recommendations are appreciated. (2) Erosive gastritis: Code(s): K29.60 - Other gastritis without bleeding Status: Acute Assessment and Plan: EGD performed 09/22/2020 showed moderate to severe erosive gastritis. Biopsies were collected. Continue Protonix 40 mg b.i.d. Avoid NSAIDs and aspirin (3) Nausea and vomiting in adult: Code(s): R11.2 - Nausea with vomiting, unspecified Status: Acute Assessment and Plan: Most likely secondary to colitis and gastritis. this has improved today. Antiemetics as needed Advance to bland diet as tolerated. (4) Dehydration: Code(s): E86.0 - Dehydration Status: Acute Assessment and Plan: Secondary to nausea, vomiting, and poor p.o. intake. She has been rehydrated with IV fluids. Electrolytes are stable at this time. She appears euvolemic on exam. discontinue IV fluids as above. Tolerating p.o. intake. will resume IV fluids as needed if she develops vomiting again or unable to tolerate PO. (5) Leukocytosis: Qualifiers: Leukocytosis type: unspecified Qualified Code(s): D72.829 - Elevated white blood cell count, unspecified Code(s): D72.829 - Elevated white blood cell count, unspecified Status: Acute Assessment and Plan: She had mild leukocytosis upon presentation, felt to be secondary to colitis (infectious etiology considered). leukocytosis resolved with addition of IV antibiotics. However, she has developed mild leukocytosis again today, this is now felt to be secondary to IV steroids. Monitor CBC Subjective Date/time seen: 09/25/20 13:48 Interval history: date of service: 09/25/2020 Kirsten Shen is a healthy 19-year-old female with history of recent hospitalization in August 2020 for terminal ileitis who is seen in follow-up for colitis and gastritis. she is feeling a bit better today. She is still endorsing abdominal pain but reports that has improved significantly with pain medication today. Currently reading as 4/10. She has not had any nausea or vomiting today and she was able to tolerate full liquids. Denies dizziness, lightheadedness, weakness, fever, chills. She had a regular bowel movement last night. Denies urinary symptoms. She has requested to try to advance her diet. Denies shortness of breath, cough, chest pain. Review of Systems Review of Systems: All systems reviewed & are unremarkable except as noted in HPI and below Exam Narrative: Exam Narrative: Ms. Shen is a well-nourished, well-appearing 19-year-old female who is lying supine in bed. She appears comfortable and is in NARD. HR 57, BP 125/65, R 12, T 98.5?, 100% on room air Neuro: Awake, alert and oriented x4, speech clear, no focal neuro deficits noted HEENMT: normocephalic, atraumatic, EOMI, sclerae anicteric, moist oral mucosa, tongue midline, nares patent Nec
[2020-09-25 14:00] VITALS: BP 130/68; PULSE 60; RESP 18; TEMP 36.8; O2SAT 99
[2020-09-25 19:24] VITALS: BP 143/77; PULSE 88; RESP 14; TEMP 36.4; O2SAT 96
[2020-09-26] MEDS: PROMETHAZINE HCL 25 MG/ML AMPUL 12.5 MG IV PUSH (01:05)
[2020-09-26 06:00] VITALS: BP 120/75; PULSE 70; RESP 14; TEMP 36.9; O2SAT 100
[2020-09-26 06:42] LABS: Hematocrit 37.9 % (37.0-47.0); Hemoglobin 12.6 g/dL (12.0-15.0); Mean Corpuscular HGB Conc 33.2 g/dl (32-36); Mean Corpuscular Hemoglobin 29.7 pg (26-34); Mean Corpuscular Volume 89.4 fl (80-100); Mean Platelet Volume 10.6 fl (7.4-10.4); Platelet Count Result 386 k/mm3 (150-375); Red Blood Count 4.24 M/mm3 (4.2-5.4); Red Cell Distribution Width 11.9 % (11.5-14.5); White Blood Count 12.7 K/mm3 (4.5-10.0)
[2020-09-26 07:07] LABS: Anion Gap 4 mmol/L (8-16); Blood Urea Nitrogen 12 mg/dL (8-21); Calcium 8.3 mg/dL (8.9-10.7); Carbon Dioxide 30 mmol/L (22-30); Chloride 106 mmol/L (98-107); Estimated CRCL calculation 103 ml/min; Estimated Glomerular Filt Rate > 60; Glucose 103 mg/dL (65-105); Sodium 140 mmol/L (134-143)
[2020-09-26] MEDS: metroNIDAZOLE 500 MG/ISO 100ML 500 MG/100 ML BAG 100 MG IVPB ×2 (09:21→20:43)
[2020-09-26] MEDS: PANTOPRAZOLE SODIUM IV 40 MG VIAL IV PUSH ×2 (09:21→20:39)
[2020-09-26] MEDS: methylPREDNISolone SOD SUCC 40 MG VIAL IV PUSH ×2 (09:21→17:06)
--- NOTE | 2020-09-26 09:33 | WPDGIPROGNO ---
Progress Note: A&P Assessment and Plan (1) Abdominal pain: Code(s): R10.9 - Unspecified abdominal pain Status: Acute Assessment and Plan: Abdominal pain improving slowly. Patient on proton pump inhibitor therapy for gastritis. On steroids for potential inflammatory bowel disease. Histology of recent biopsy still pending. Dr. Alberto will return and assume care tomorrow. (2) Erosive gastritis: Code(s): K29.60 - Other gastritis without bleeding Status: Acute (3) Colitis: Code(s): K52.9 - Noninfective gastroenteritis and colitis, unspecified Status: Acute (4) Ileitis, terminal: Qualifiers: Digestive disease complication type: without complication Qualified Code(s): K50.00 - Crohn's disease of small intestine without complications Code(s): K50.00 - Crohn's disease of small intestine without complications Status: Acute Additional Plan Await histology TD determine differential diagnosis inflammatory bowel disease versus infectious etiology. Subjective Date/time seen: 09/26/20 09:33 Patient reports her pain is somewhat improved today. Tolerating some intake. Less abdominal pain described. Exam Narrative: Exam Narrative: Physical exam reveals her to be less withdrawn. HEENT exam reveals no icterus. Lungs are clear. Heart without murmur. Abdomen bowel sounds present soft minimal epigastric tenderness noted. Objective Data Vital Signs Vital Signs: Vital Signs - 24 hr 09/25/20 10:07 09/25/20 14:00 09/25/20 19:24 Temperature 98.3 F 97.5 F L Pulse Rate 60 88 Respiratory Rate 18 14 Blood Pressure 130/68 143/77 H Pulse Oximetry 97 99 96 09/26/20 06:00 Temperature 98.4 F Pulse Rate 70 Respiratory Rate 14 Blood Pressure 120/75 Pulse Oximetry 100 Intake/Output Intake/Output: Intake & Output 09/23/20 09/24/20 09/25/20 09/26/20 23:59 23:59 23:59 23:59 Intake Total 3150 3240 3190 900 Output Total 1700 1400 1050 2000 Balance 1450 1840 2140 -1100 Meds/Results Medications: Active Medications Generic Name Dose Route Start Last Admin Trade Name Freq PRN Reason Stop Dose Admin Acetaminophen 650 mg 09/24/20 11:51 Acetaminophen 325 Mg Tablet PO Q4H PRN Pain 1-3 Hydrocodone Bitart/Acetaminophen 1 tab 09/24/20 11:51 Hydrocodone/Acetaminophen (*Crx) 5-325 Mg Tablet PO Q4H PRN Pain Rated 4-6 Ciprofloxacin/Dextrose 200 mls @ 200 mls/hr 09/23/20 10:00 09/26/20 00:20 Cipro 400 Mg/D5w 200 Ml IVPB Infused Q12H REENA Infusion Metronidazole 500 mg in 100 mls @ 100 mls/hr 09/23/20 09:00 09/26/20 09:21 Flagyl 500 Mg/Iso Soln 100 Ml IVPB 100 mls/hr Q12H REENA Administration Methylprednisolone Sodium Succinate 40 mg 09/24/20 09:10 09/26/20 09:21 Methylprednisolone Sod Succ 40 Mg Vial IV PUSH 40 mg BID REENA Administration Morphine Sulfate 2 mg 09/24/20 11:51 09/25/20 22:27 Morphine Sulfate (*Crx) 2 Mg/Ml Inj IV PUSH 2 mg Q4H PRN Administration Pain Rated 7-10 Pantoprazole Sodium 40 mg 09/24/20 09:00 09/26/20 09:21 Pantoprazole Sodium Iv 40 Mg Vial IV PUSH 40 mg Q12HR REENA Administration Promethazine HCl 12.5 mg 09/24/20 09:34 09/26/20 01:05 Promethazine Hcl 25 Mg/Ml Ampul IV PUSH 12.5 mg Q4H PRN Administration Nausea And Vomiting Radiology Results: ITS Impressions Abdomen/Pelvis CT 09/22/20 22:18 IMPRESSION: 1. Mild diffuse thickening of the colon, most prominent at the ascending colon, suspicious for colitis. Consider infection and inflammatory bowel disease. 2: Mild ileocolic lymphadenopathy, likely reactive. Labs Labs: Laboratory Results - last 24 hr 09/26/20 09/26/20 05:45 05:45 WBC 12.7 H RBC 4.24 Hgb 12.6 Hct 37.9 MCV 89.4 MCH 29.7 MCHC 33.2 RDW 11.9 Plt Count 386 H MPV 10.6 H Sodium 140 Potassium 4.0 Chloride 106 Carbon Dioxide 30 Anion Gap 4 L BUN 12 Creatinine
[2020-09-26] MEDS: CIPROFLOXACIN 400 MG/D5W 200ML 200 ML 200 MG IVPB (10:57)
[2020-09-26] MEDS: HYDROcodone/acetaminophen (*CRX) 5-325 MG TABLET 1 TAB PO ×2 (10:59→23:28)
--- NOTE | 2020-09-26 11:21 | PM.IMPN ---
Progress Note: A&P Assessment and Plan (1) Colitis: Code(s): K52.9 - Noninfective gastroenteritis and colitis, unspecified Status: Acute Assessment and Plan: CT abdomen/pelvis on 09/22/2020 showed mild diffuse thickening of the colon, most prominent in the ascending colon, suspicious for colitis. Colonoscopy performed 09/[address] Alberto demonstrated mild patchy ileitis and colitis. Crohn's disease vs infectious etiology considered. She remains afebrile. Abdominal pain is slowly improving. Continue Cipro and Flagyl Continue IV Solu-Medrol 40 mg b.i.d. per GI for possible IBD. Biopsies are pending. Continue with bland diet. She is tolerating well. Analgesics available as needed for pain Gastroenterology is following and recommendations are appreciated. (2) Erosive gastritis: Code(s): K29.60 - Other gastritis without bleeding Status: Acute Assessment and Plan: EGD performed 09/22/2020 showed moderate to severe erosive gastritis. Biopsies were collected and are pending. Continue Protonix 40 mg b.i.d. Avoid NSAIDs and aspirin (3) Nausea and vomiting in adult: Code(s): R11.2 - Nausea with vomiting, unspecified Status: Acute Assessment and Plan: Most likely secondary to colitis and gastritis. This has improved today. Antiemetics as needed Continue with bland diet as tolerated. (4) Dehydration: Code(s): E86.0 - Dehydration Status: Acute Assessment and Plan: Secondary to nausea, vomiting, and poor p.o. intake. She has been rehydrated with IV fluids. Electrolytes are stable at this time. She appears euvolemic on exam. Will resume IV fluids as needed if she develops vomiting again or unable to tolerate PO intake. (5) Leukocytosis: Qualifiers: Leukocytosis type: unspecified Qualified Code(s): D72.829 - Elevated white blood cell count, unspecified Code(s): D72.829 - Elevated white blood cell count, unspecified Status: Acute Assessment and Plan: She had mild leukocytosis upon presentation, felt to be secondary to colitis (infectious etiology considered). leukocytosis resolved with addition of IV antibiotics. However, she has developed mild leukocytosis again, which is now felt to be secondary to IV steroids. Monitor CBC Subjective Date/time seen: 09/26/20 11:21 Interval history: date of service: 09/25/2020 Kirsten Shen is a healthy 19-year-old female with history of recent hospitalization in August 2020 for terminal ileitis who is seen in follow-up for colitis and gastritis. She is feeling better today. She is still having pretty significant abdominal pain in the periumbilical/epigastric region. She reports intermittent waves of pain that are sharp in nature and rates this is 8/10. She notes that this is worse with deep inspiration. She does not think that pain is related to food or liquid intake. She has not had any episodes of nausea or vomiting today. She is tolerating a bland diet, though notes her appetite is pretty decreased. She had a regular bowel movement yesterday and denies melena or hematochezia. Denies fever, chills, weakness, dizziness, lightheadedness, numbness, tingling, shortness breath, cough, chest pain, or palpitations. Review of Systems Review of Systems: All systems reviewed & are unremarkable except as noted in HPI and below Exam Narrative: Exam Narrative: Ms. Shen is a well-nourished, well-appearing 19-year-old female who is lying supine in bed. She appears comfortable and is in NARD. HR 70, BP 120/75, R 14, T 98.4?, 100% on room air Neuro: Awake, alert and oriented x4, speech clear, no focal neuro deficits noted HEENMT: normocephalic, atraumatic, EOMI, sclerae anicteric, moist oral mucosa, tongue midline, nares patent Neck: supple, no lymphadenopathy Respiratory: clear to auscultation bilaterally, nonlabored breathing Cardio: regu
[2020-09-26 14:00] VITALS: BP 118/72; PULSE 72; RESP 16; TEMP 36.8; O2SAT 100
[2020-09-26 20:37] VITALS: BP 146/79; PULSE 78; RESP 12; TEMP 36.6; O2SAT 100
[2020-09-27 05:36] VITALS: BP 116/61; PULSE 60; RESP 12; TEMP 36.1; O2SAT 100
[2020-09-27 05:50] LABS: Hematocrit 39.1 % (37.0-47.0); Hemoglobin 13.2 g/dL (12.0-15.0); Mean Corpuscular HGB Conc 33.8 g/dl (32-36); Mean Corpuscular Hemoglobin 29.7 pg (26-34); Mean Corpuscular Volume 87.9 fl (80-100); Mean Platelet Volume 10.2 fl (7.4-10.4); Platelet Count Result 409 k/mm3 (150-375); Red Blood Count 4.45 M/mm3 (4.2-5.4); Red Cell Distribution Width 11.7 % (11.5-14.5); White Blood Count 13.7 K/mm3 (4.5-10.0)
[2020-09-27 06:04] LABS: Anion Gap 4 mmol/L (8-16); Blood Urea Nitrogen 11 mg/dL (8-21); Calcium 8.7 mg/dL (8.9-10.7); Carbon Dioxide 28 mmol/L (22-30); Chloride 106 mmol/L (98-107); Estimated CRCL calculation 117 ml/min; Estimated Glomerular Filt Rate > 60; Glucose 111 mg/dL (65-105); Potassium 3.9 mmol/L (3.4-5.0); Sodium 138 mmol/L (134-143)
--- NOTE | 2020-09-27 10:14 | WPDGIPROGNO ---
Progress Note: A&P Assessment and Plan (1) Clostridioides difficile diarrhea: Code(s): A04.72 - Enterocolitis due to Clostridium difficile, not specified as recurrent Status: Acute Assessment and Plan: can explain symptoms, cipro was discontinued she is now on oral vancomycin and iv flagyl she is feeling like going home, will need to complete 10 days of vancomycin and probably use probiotics (2) Colitis: Code(s): K52.9 - Noninfective gastroenteritis and colitis, unspecified Status: Acute Assessment and Plan: pending biopsies to assess if underlying IBD but also she has C diff which can explain findings depending on biopsies may need specific treatment she was empirically on steroids she can see me in office in 3-4 weeks (3) Erosive gastritis: Code(s): K29.60 - Other gastritis without bleeding Status: Acute Assessment and Plan: on ppi, continue when she goes home (4) Abdominal pain: Code(s): R10.9 - Unspecified abdominal pain Status: Acute Assessment and Plan: improved (5) Nausea and vomiting in adult: Code(s): R11.2 - Nausea with vomiting, unspecified Status: Acute Subjective Date/time seen: 09/27/20 10:14 Interval history: she is feeling better with less abdominal pain and formed stools, eating Review of Systems Review of Systems: All systems reviewed & are unremarkable except as noted in HPI and below Exam Const: General: comfortable and no acute distress HENMT: General nose exam: Normal nares present Eyes: General: appearance normal, both eyes and all related structures Neck: Neck: no JVD Resp: Auscultation: clear to auscultation bilaterally Cardio: Rate: regular rate Rhythm: regular rhythm GI: Inspection: non-distended GI Palp: Yes Soft to palpation Skin: General skin exam: normal color Neuro: General: gait normal Speech: normal speech Extrem: General: normal to inspection Psych: Mental Status: mental status grossly normal Objective Data Vital Signs Vital Signs: Vital Signs - 24 hr 09/26/20 14:00 09/26/20 20:37 09/27/20 05:36 Temperature 98.2 F 98 F 97 F L Pulse Rate 72 78 60 Respiratory Rate 16 12 12 Blood Pressure 118/72 146/79 H 116/61 Pulse Oximetry 100 100 100 Intake/Output Intake/Output: Intake & Output 02/0509/25/20 09/26/20 09/27/20 23:59 23:59 23:59 23:59 Intake Total 3240 3190 2260 600 Output Total 1400 1050 2800 1200 Balance 1840 2140 -540 -600 Meds/Results Medications: Active Medications Generic Name Dose Route Start Last Admin Trade Name Freq PRN Reason Stop Dose Admin Acetaminophen 650 mg 09/24/20 11:51 Acetaminophen 325 Mg Tablet PO Q4H PRN Pain 1-3 Hydrocodone Bitart/Acetaminophen 1 tab 09/24/20 11:51 09/26/20 23:28 Hydrocodone/Acetaminophen (*Crx) 5-325 Mg Tablet PO 1 tab Q4H PRN Administration Pain Rated 4-6 Metronidazole 500 mg in 100 mls @ 100 mls/hr 09/23/20 09:00 09/26/20 21:43 Flagyl 500 Mg/Iso Soln 100 Ml IVPB Infused Q12H REENA Infusion Morphine Sulfate 2 mg 09/24/20 11:51 09/25/20 22:27 Morphine Sulfate (*Crx) 2 Mg/Ml Inj IV PUSH 2 mg Q4H PRN Administration Pain Rated 7-10 Pantoprazole Sodium 40 mg 09/24/20 09:00 09/26/20 20:39 Pantoprazole Sodium Iv 40 Mg Vial IV PUSH 40 mg Q12HR REENA Administration Promethazine HCl 12.5 mg 09/24/20 09:34 09/26/20 01:05 Promethazine Hcl 25 Mg/Ml Ampul IV PUSH 12.5 mg Q4H PRN Administration Nausea And Vomiting Vancomycin HCl 250 mg 09/27/20 00:00 09/27/20 06:05 Vancomycin Oral 250 Mg/5 Ml Syrup PO 250 mg Q6HR REENA Administration Radiology Results: ITS Impressions Abdomen/Pelvis CT 09/22/20 22:18 IMPRESSION: 1. Mild diffuse thickening of the colon, most prominent at the ascending colon, suspicious for colitis. Consider infection and inflammatory bowel disease. 2: Mild ileocolic lymphadenopathy, likely pedro
[2020-09-27] MEDS: metroNIDAZOLE 500 MG/ISO 100ML 500 MG/100 ML BAG 100 MG IVPB (10:17)
[2020-09-27] MEDS: PANTOPRAZOLE SODIUM IV 40 MG VIAL IV PUSH (10:22)
--- NOTE | 2020-09-27 12:04 | PM.DS ---
DS: Admitting Diagnosis Admitting Diagnosis Admitting Diagnosis: Abdominal pain DS: Discharge Diagnosis Discharge Diagnosis (1) Colitis: Code(s): K52.9 - Noninfective gastroenteritis and colitis, unspecified Status: Acute Assessment and Plan: CT abdomen/pelvis on 09/22/2020 showed mild diffuse thickening of the colon, most prominent in the ascending colon, suspicious for colitis. Colonoscopy performed 09/[address] Alberto demonstrated mild patchy ileitis and colitis. Crohn's disease vs infectious etiology considered, Therefore she was started on IV Cipro and Flagyl as well as IV Solu-Medrol 40 mg b.i.d.. Biopsies collected during colonoscopy and are pending. She remained afebrile. Her abdominal pain slowly improved and she was able to advance to a bland diet. She will follow-up with Dr. Alberto in 2 weeks and will then review results of biopsy. (2) Clostridioides difficile diarrhea: Code(s): A04.72 - Enterocolitis due to Clostridium difficile, not specified as recurrent Status: Acute Assessment and Plan: Stool testing returned positive for Clostridium difficile, which likely explains her symptoms. She was started on oral vancomycin and was discharged with a prescription for this, however this was unaffordable therefore I called in a prescription for p.o. Flagyl 500 mg q8h x14 days, per GI recommendations. She was advised to avoid alcohol while taking this medication. She will follow-up with Dr. Alberto as above. She was started on a daily probiotic which she should continue. (3) Erosive gastritis: Code(s): K29.60 - Other gastritis without bleeding Status: Acute Assessment and Plan: EGD performed 09/22/2020 showed moderate to severe erosive gastritis. Biopsies were collected and are pending, And she will follow-up with GI as above. She will continue Protonix 40 mg b.i.d. She should avoid NSAIDs and aspirin. (4) Nausea and vomiting in adult: Code(s): R11.2 - Nausea with vomiting, unspecified Status: Acute Assessment and Plan: Secondary to colitis and gastritis. This resolved. She was able to advance her diet and she will continue with a bland diet. . (5) Dehydration: Code(s): E86.0 - Dehydration Status: Acute Assessment and Plan: Secondary to nausea, vomiting, and poor p.o. intake. She was rehydrated with IV fluids. Electrolytes were stable. (6) Leukocytosis: Qualifiers: Leukocytosis type: unspecified Qualified Code(s): D72.829 - Elevated white blood cell count, unspecified Code(s): D72.829 - Elevated white blood cell count, unspecified Status: Acute Assessment and Plan: She had mild leukocytosis upon presentation, felt to be secondary to colitis. Leukocytosis resolved with addition of IV antibiotics. However, she then developed mild leukocytosis again, which was felt to be secondary to IV steroids. Repeat CBC in 1 week to ensure resolution. DS: Summary Hospital Course Reason for hospitalization: Abdominal pain Hospital Course: date of admission: 09/22/2020 date of discharge: 09/27/2020 Kirsten Shen is a healthy 19-year-old female with history of recent hospitalization in August 2020 for terminal ileitis who presented to the emergency department on 09/22/2020 with complaints of abdominal pain, nausea, and vomiting ongoing for 1 day. she had been recently hospitalized and was scheduled to have colonoscopy during admission, however was unable to tolerate prep. she was scheduled for outpatient GI follow-up, however her symptoms worsened and she return to the emergency department. Upon presentation to the ED, her vital signs were stable, she was afebrile, she had mild leukocytosis at 12.9 and mild thrombocytosis, electrolytes stable, CT abdomen/ pelvis showed mild diffuse thickening of the colon most prominent the ascending colon suspicious for colitis. Infectious v
== END 2020-09-27 13:15 | disposition home or self-care (01) | DRG 248 ==
LOC: ANHED 20:37 → ANH3MED 23:31
PROVIDERS: Internal Medicine Gastroenterology; Admitting Provider Family Medicine; Emergency Provider Emergency Medicine; Visit Provider Physician Assistant
PROC: 0DJ08ZZ Inspection of Upper Intestinal Tract, Via Natural or Artificial Opening Endoscopic (ICD-10-PCS; CPT 43235; principal; 2020-09-24 13:30)
DX: A04.72 Enterocolitis due to Clostridium difficile, not specified as recurrent (principal); E86.0 Dehydration; K29.60 Other gastritis without bleeding; K50.00 Crohn's disease of small intestine without complications
CPT/HCPCS: 36415; 74177; 80048; 80053; 81001; 81025; 83690; 83735; 85025; 85027; 87015; 87045; 87046; 87269; 87272; 87324; 87427; 88305; 89055; 96361; 96372; 96374; 96375; 99285; A9270; C9113; J0330; J0500; J0744; J2270; J2405; J2550; J2704; J2765; J2920; J3010; J7030; J7120; Q9967

== ENCOUNTER 2020-10-25 15:14 | Outpatient (CLI) | payer MEDICAID, SELFPAY ==
[2020-10-25 16:30] LABS: Hematocrit 37.7 % (37.0-47.0); Hemoglobin 12.3 g/dL (12.0-15.0); Mean Corpuscular HGB Conc 32.6 g/dl (32-36); Mean Corpuscular Hemoglobin 29.8 pg (26-34); Mean Corpuscular Volume 91.3 fl (80-100); Platelet Count Result 402 k/mm3 (150-375); Red Blood Count 4.13 M/mm3 (4.2-5.4); Red Cell Distribution Width 12.2 % (11.5-14.5); White Blood Count 8.1 K/mm3 (4.5-10.0)
[2020-10-25 16:55] LABS: Alanine Aminotransferase 61 U/L (4-35); Albumin Level 3.9 g/dL (3.7-5.6); Alkaline Phosphatase 60 U/L (45-116); Anion Gap 4 mmol/L (8-16); Aspartate Amino Transferase 36 U/L (14-36); Bilirubin,Total 0.3 mg/dL (0.2-1.3); Blood Urea Nitrogen 11 mg/dL (8-21); CRP < 0.5 mg/dL (<1.0); Carbon Dioxide 29 mmol/L (22-30); Chloride 107 mmol/L (98-107); Estimated Glomerular Filt Rate > 60; Glucose 93 mg/dL (65-105); Potassium 3.8 mmol/L (3.4-5.0); Sodium 140 mmol/L (134-143)
[2020-10-25 17:19] LABS: Erythrocyte Sedimentation Rate 56 mm/hr (0-20)
[2020-10-25 17:57] LABS: Hepatitis B Surface Antigen Negative (Negative)
[2020-10-25 18:37] LABS: Hepatitis B Surface Anti Res Indeterminate
[2020-10-27 22:16] LABS: NIL 0.02 IU/mL; Quantiferon TB Plus, 1T NEGATIVE (NEGATIVE); TB1-NIL <0.00 IU/mL; TB2-NIL <0.00 IU/mL
[2020-10-28 19:47] LABS: Hepatitis B Core Ab Total Nonreactive (Nonreactive)
[2020-11-04 11:42] LABS: TPMT Activity 15
== END 2020-10-25 15:15 | disposition home or self-care (01) ==
LOC: ANHLAB 15:16
PROVIDERS: PCP Internal Medicine Gastroenterology; Visit Provider Physician Assistant
DX: D72.829 Elevated white blood cell count, unspecified (principal); K50.80 Crohn's disease of both small and large intestine without complications
CPT/HCPCS: 36415; 80053; 82657; 85027; 85652; 86140; 86480; 86704; 86706; 87340

== ENCOUNTER 2020-11-17 14:20 | Emergency (ER) | payer MEDICAID, SELFPAY ==
[2020-11-17 14:27] VITALS: BP 134/93; PULSE 74; RESP 15; TEMP 35.7; O2SAT 100
[2020-11-17 15:02] LABS: Basophils Percent Auto 0.2 % (0.2-1.2); Eosinophils Percent Auto 0.1 % (0-4.4); Hematocrit 41.9 % (37.0-47.0); Hemoglobin 13.7 g/dL (12.0-15.0); Immature Granulocyte Absolute 0.05 K/mm3 (0.00-0.031); Immature Granulocyte Percent A 0.4 % (0-0.5); Lymphocytes Absolute Auto 0.66 K/mm3 (0.9-3.2); Lymphocytes Percent Auto 5.4 % (18.3-44.2); Mean Corpuscular HGB Conc 32.7 g/dl (32-36); Mean Corpuscular Hemoglobin 29.6 pg (26-34); Mean Corpuscular Volume 90.5 fl (80-100); Mean Platelet Volume 10.1 fl (7.4-10.4); Monocytes Absolute Auto 0.3 K/mm3 (0.1-0.6); Monocytes Percent Auto 2.3 % (2.6-8.5); Neutrophils Absolute Auto 11.1 K/mm3 (1.3-6.7); Neutrophils Percent Auto 91.6 % (45.5-73.1); Platelet Count Result 360 k/mm3 (150-375); Red Blood Count 4.63 M/mm3 (4.2-5.4); White Blood Count 12.2 K/mm3 (4.5-10.0)
[2020-11-17 15:11] LABS: Add Urine Microscopic? YES; Appearance Urine Cloudy (Clear); Bacteria Urine Trace /hpf; Bilirubin Urine Negative (Negative); Blood Urine Negative (Negative); Color Urine Yellow (Yellow); Glucose Urine UA Negative (Negative); Ketones Urine Negative (Negative); Leukocyte Esterase Ur Negative LEU/UL (Negative); Mucus Urine Few /lpf; Nitrate Urine Negative (Negative); Protein Urine 1+ mg/dL (Negative); Specific Grav Ur 1.025 (1.001-1.035); Squamous Epithelial Cell Urine Moderate /hpf (Few); Transitional Epi Cells Urine Rare /hpf (None Seen); Urobilinogen Urine Negative mg/dL (<2.0); WBC Urine 0-3 /hpf
[2020-11-17 15:18] LABS: Alanine Aminotransferase 18 U/L (4-35); Albumin Level 4.5 g/dL (3.7-5.6); Alkaline Phosphatase 75 U/L (45-116); Anion Gap 6 mmol/L (8-16); Aspartate Amino Transferase 23 U/L (14-36); Bilirubin,Total 0.5 mg/dL (0.2-1.3); Blood Urea Nitrogen 9 mg/dL (8-21); Calcium 9.2 mg/dL (8.9-10.7); Carbon Dioxide 27 mmol/L (22-30); Chloride 109 mmol/L (98-107); Estimated CRCL calculation 103 ml/min; Estimated Glomerular Filt Rate > 60; Glucose 108 mg/dL (65-105); Lipase 92 U/L (23-300); Potassium 3.9 mmol/L (3.4-5.0); Sodium 142 mmol/L (134-143)
[2020-11-17 16:50] LABS: Pregnancy On Board Control Positive; Urine Pregnancy Test Negative
[2020-11-17 17:05] VITALS: BP 128/70; PULSE 68; RESP 12; O2SAT 99
--- NOTE | 2020-11-17 17:38 | ED.ABDPAIN ---
HPI - Abdominal Pain General Chief Complaint: Abdominal Pain Stated Complaint: can't keep my chron's medication down Time Seen by Provider: 11/17/20 16:37 Source: patient Mode of arrival: ambulatory Limitations: no limitations History of Present Illness HPI narrative: 19-year-old female Roughly the third time to hospital in about 4 months for recurring issues with abdominal pain diarrhea nausea and vomiting Reports that she recently had confirmation from Dr. Remy Baker of a Crohn's disease diagnosis She was sure what medication she was taking was supposed to be taking She did take some pictures of pill bottles which include a probiotic Flagyl Cipro Protonix, but no medications particularly for Crohn's She reports crampy abdominal pain with nausea and vomiting that started this morning No blood in the stool no fever Related Data Allergies Allergy/AdvReac Type Severity Reaction Status Date / Time No Known Allergies Allergy Verified 10/25/20 14:44 Review of Systems Review of Systems: All systems reviewed & are unremarkable except as noted in HPI and below Constitutional: Constitutional: Denies chills, Reports fatigue, Denies fever(s), Denies headache(s) and Reports weakness Eyes: Eyes: Reports no additional eye complaints and Denies change in vision ENT: Denies headache(s), Denies epistaxis, Denies nasal congestion and Denies sore throat Cardiovascular: Cardiovascular: Denies chest pain, Denies leg edema, Denies palpitations and Denies dyspnea Respiratory: Respiratory: Denies cough, Denies dyspnea and Denies wheezing Gastrointestinal: Gastrointestinal: Reports abdominal pain, Reports diarrhea, Reports nausea and Reports vomiting Genitourinary: Genitourinary: Denies hematuria, Denies urinary frequency and Denies dysuria Musculoskeletal: Musculoskeletal: Denies deformity, Denies arthralgias, Denies joint swelling, Denies muscle weakness and Denies numbness Integumentary/Breasts: Skin/Breast: Denies rash and Denies wounds Neurologic: Denies headache(s), Denies focal weakness, Denies numbness and Denies weakness Psychiatric: Psychiatric: Reports no additional psychiatric complaints Endocrine: Endocrine: Denies fatigue and Denies palpitations Hematologic/Lymphatic: Hematologic/Lymphatic: Denies easy bleeding PMFSH Past Medical History Medical History (Updated 11/17/20 @ 20:00 by Brendan Gardner MD) Abdominal pain Clostridioides difficile diarrhea Crohn's ileocolitis Healthy female adult Nausea and vomiting in adult Family History Family History Other Unknown family medical history Social History Social History Smoking status: Never smoker Alcohol intake: never Substance use: never Gender identity (if verbalized by the patient): Female Spiritual care concerns: No Exam Const: General: no acute distress, well developed, alert and awake Nutritional Appearance: well nourished Orientation/consciousness: patient oriented x3 (alert) HENMT: Head: normocephalic and atraumatic Ears: external ears normal General nose exam: No nasal discharge present and no epistaxis Face and sinus: face symmetric Eyes: Conjunctivae: conjunctivae normal Sclera: sclerae normal EOM: EOMs intact bilaterally Neck: Neck: normal visual inspection, supple and no JVD Chest: Chest palpation & inspection: deferred Resp: Effort & Inspection: normal respiratory effort Auscultation: clear to auscultation bilaterally and other (BS =) Cardio: Rate: regular rate Rhythm: regular rhythm Heart sounds: no gallops GI: Inspection: normal to inspection GI Palp: Yes Soft to palpation, Yes Tenderness to palpation present (GI), No Guarding due to palpation present (GI) and No Rebound tenderness present Auscultation: normal bowel sounds Back/Spine/Pelvis: Thoracic/Lumbar Spine: thoracic and lumbar spine n
[2020-11-17] MEDS: LACTATED RINGERS 1,000 ML 999 ML IV CONT (18:03)
[2020-11-17] MEDS: PANTOPRAZOLE SODIUM IV 40 MG VIAL IV PUSH (18:03)
[2020-11-17] MEDS: BELLADONNA ALK/PHENOB ELIX 10 ML, MAG HYDROX/ALUMINUM HYD/SIMETH 30 ML, LIDOCAINE HCL 2... PO (18:03)
[2020-11-17] MEDS: PROCHLORPERAZINE EDISYLATE 10 MG/2 ML VIAL IV PUSH (18:03)
[2020-11-17 18:30] VITALS: BP 124/65; PULSE 70; RESP 12; O2SAT 99
[2020-11-17] MEDS: DICYCLOMINE HCL INJ 20 MG/2 ML VIAL IM (19:21)
== END 2020-11-17 20:32 | disposition home or self-care (01) ==
PROVIDERS: Emergency Medicine; Emergency Provider Emergency Medicine; PCP Internal Medicine Gastroenterology
DX: K50.90 Crohn's disease, unspecified, without complications (principal); R11.2 Nausea with vomiting, unspecified
CPT/HCPCS: 36415; 80053; 81001; 81025; 83690; 85025; 96361; 96372; 96374; 96375; 99284; A9270; C9113; J0500; J0780; J1100; J7120

== ENCOUNTER 2020-12-28 19:18 | Emergency (ER) | payer OTHER, SELFPAY ==
[2020-12-28 19:45] VITALS: BP 170/110; PULSE 87; RESP 18; TEMP 35.9; O2SAT 100
[2020-12-28 20:01] LABS: Basophils Percent Auto 0.1 % (0.2-1.2); Hematocrit 43.4 % (37.0-47.0); Hemoglobin 14.5 g/dL (12.0-15.0); Immature Granulocyte Absolute 0.03 K/mm3 (0.00-0.031); Immature Granulocyte Percent A 0.3 % (0-0.5); Lymphocytes Absolute Auto 0.59 K/mm3 (0.9-3.2); Lymphocytes Percent Auto 5.6 % (18.3-44.2); Mean Corpuscular HGB Conc 33.4 g/dl (32-36); Mean Corpuscular Hemoglobin 29.7 pg (26-34); Mean Corpuscular Volume 88.8 fl (80-100); Mean Platelet Volume 9.8 fl (7.4-10.4); Monocytes Absolute Auto 0.2 K/mm3 (0.1-0.6); Monocytes Percent Auto 1.9 % (2.6-8.5); Neutrophils Absolute Auto 9.7 K/mm3 (1.3-6.7); Neutrophils Percent Auto 92.1 % (45.5-73.1); Platelet Count Result 413 k/mm3 (150-375); Red Blood Count 4.89 M/mm3 (4.2-5.4); Red Cell Distribution Width 11.7 % (11.5-14.5); White Blood Count 10.5 K/mm3 (4.5-10.0)
[2020-12-28 20:11] LABS: Alanine Aminotransferase 18 U/L (4-35); Albumin Level 4.9 g/dL (3.5-5.1); Alkaline Phosphatase 85 U/L (38-126); Anion Gap 13 mmol/L (8-16); Aspartate Amino Transferase 23 U/L (14-36); Bilirubin,Total 0.4 mg/dL (0.2-1.3); Blood Urea Nitrogen 7 mg/dL (7-17); Calcium 9.8 mg/dL (8.4-10.2); Carbon Dioxide 22 mmol/L (22-30); Chloride 105 mmol/L (98-107); Estimated CRCL calculation 113 ml/min; Estimated Glomerular Filt Rate > 60; Glucose 139 mg/dL (65-105); Lipase 32 U/L (23-300); Sodium 140 mmol/L (137-145)
--- NOTE | 2020-12-28 21:06 | ED.ABDPAIN ---
HPI - Abdominal Pain General Chief Complaint: Abdominal Pain Stated Complaint: abd pain, crohn's, out of meds Time Seen by Provider: 12/28/20 20:15 Source: patient Mode of arrival: ambulatory Limitations: no limitations History of Present Illness HPI narrative: Patient is a 20 year old female with a history of Crohn's who presents with nausea, vomiting and diarrhea x [address] Hernandez. Patient reports Related Data Allergies Allergy/AdvReac Type Severity Reaction Status Date / Time No Known Allergies Allergy Verified 12/28/20 19:55 Review of Systems Review of Systems: Narrative: CONSTITUTIONAL: Denies fever, chills, or sweats. EYES: Denies visual changes, redness, or discharge. ENT: Denies rhinorrhea, congestion, sore throat, or otalgia. CARDIOVASCULAR: Denies chest pain, palpitations, or edema. RESPIRATORY: Denies cough or dyspnea. GASTROINTESTINAL: Reports abdominal pain, nausea, vomiting, and diarrhea. GENITOURINARY: Denies dysuria or hematuria. SKIN: Denies rash or itching. MUSCULOSKELETAL: Denies back pain, joint pain, or myalgia. NEUROLOGIC: Denies headache, numbness, dizziness, or weakness. PSYCHIATRIC: Denies anxiety or depression. [facility] Past Medical History Medical History Abdominal pain Clostridioides difficile diarrhea Crohn's ileocolitis Healthy female adult Nausea and vomiting in adult Family History Family History Other Unknown family medical history Social History Social History Smoking status: Never smoker Alcohol intake: never Substance use: never Gender identity (if verbalized by the patient): Female Spiritual care concerns: No Comments At the time of signature, I have reviewed and agree with nursing past medical, surgical, social, and family history unless otherwise noted. Please see nursing chart for further information. There is no relevant family history pertinent to the presenting complaint. Exam Narrative: Exam Narrative: GENERAL: Well-appearing, well-nourished, and in no acute distress. HEAD: Normocephalic, atraumatic. EYES: EOMI. No redness or drainage. Conjunctiva are normal. ENT: Mucous membranes pink and moist. Nares clear. No rhinorrhea. TMs normal bilaterally. Throat normal. Uvula midline. NECK: AROM. Supple. No lymphadenopathy. CHEST: No respiratory distress. Clear to auscultation. HEART: Regular rate and rhythm. No murmur appreciated. Normal peripheral pulses. GI: Soft, tenderness with palpation, no distention. Bowel sounds normal in all quadrants. MUSCULOSKELETAL: No bony tenderness. EXTREMITIES: Normal range of motion. No edema. SKIN: Warm, dry, no rash. NEURO: No focal deficits. Alert and oriented x3. Gait steady. PSYCH: Normal affect. No signs of depression or anxiety. Course Consultations Consultation #1: Discussed plan of care with patient's hide cooking operator, Dr. Hernandez, who suggest patient be started on prednisone at this time. Patient is also to follow-up with his office tomorrow to schedule appointment. Date: 12/28/20 Vital Signs Vital signs: Vital Signs Temperature 35.9 C L 12/28/20 19:45 Pulse Rate 87 12/28/20 19:45 Respiratory Rate 18 12/28/20 19:45 Blood Pressure 170/110 H 12/28/20 19:45 Pulse Oximetry 100 12/28/20 19:45 Temperature 35.9 C L 12/28/20 19:45 Pulse Rate 72 12/28/20 23:34 Respiratory Rate 18 12/28/20 23:34 Blood Pressure 123/72 12/28/20 23:34 Pulse Oximetry 97 12/28/20 23:34 Reviewed-patient is informed that they may have pre-hypertension or hypertension based on a blood pressure reading. I recommend the patient call the primary care provider listed on their discharge instructions or a physician of their choice this week to arrange follow-up for further evaluation of possible pre-hypertension or h
[2020-12-28] MEDS: SODIUM CHLORIDE 0.9% IV 1,000 ML 999 ML IV CONT ×2 (21:30→22:14)
[2020-12-28] MEDS: ONDANSETRON INJ 4 MG/2 ML VIAL IV PUSH (21:31)
[2020-12-28] MEDS: MORPHINE SULFATE (*CRX) 2 MG/ML INJ IV PUSH (21:31)
[2020-12-28 21:50] LABS: Add Urine Microscopic? YES; Appearance Urine Cloudy (Clear); Bacteria Urine Trace /hpf; Bilirubin Urine Negative (Negative); Blood Urine 2+ (Negative); Color Urine Yellow (Yellow); Glucose Urine UA Negative (Negative); Ketones Urine 1+ mg/dL (Negative); Leukocyte Esterase Ur Negative LEU/UL (Negative); Mucus Urine Heavy /lpf; Nitrate Urine Negative (Negative); Protein Urine 2+ mg/dL (Negative); RBC Urine 0-2 /hpf (0-2); Squamous Epithelial Cell Urine Few /hpf (Few); Urobilinogen Urine Negative mg/dL (<2.0); WBC Urine 0-3 /hpf
[2020-12-28] MEDS: MORPHINE SULFATE (*CRX) 4 MG/ML INJ IV PUSH (22:14)
[2020-12-28 22:49] VITALS: BP 120/63; PULSE 68; RESP 16; O2SAT 98
[2020-12-28 23:34] VITALS: BP 123/72; PULSE 72; RESP 18; O2SAT 97
== END 2020-12-28 23:35 | disposition home or self-care (01) ==
PROVIDERS: Emergency Medicine; Emergency Provider Nurse Practitioner; PCP Internal Medicine Gastroenterology
DX: K50.119 Crohn's disease of large intestine with unspecified complications (principal)
CPT/HCPCS: 36415; 80053; 81001; 81025; 83690; 85025; 96361; 96374; 96375; 96376; 99284; J2270; J2405; J7030

== ENCOUNTER 2020-12-29 10:45 | Observation (INO) | payer OTHER, SELFPAY ==
[2020-12-29] VITALS (8 sets, daily range): BP systolic 116–163; BP diastolic 56–100; PULSE 55–94; RESP 14–20; TEMP 36.3–37.3; O2SAT 99–100; BMI 35.7
--- NOTE | ~2020-12-29 | CT_ITS ---
EXAMINATION: CT abdomen pelvis w con DATE: 12/29/2020 12:51 INDICATION: Crohn's disease TECHNIQUE: Computed tomography (CT) of the abdomen and pelvis was performed with 100 mL Omnipaque-350 intravenous contrast. Automated exposure control and iterative reconstruction technique were employe d. The dose-length product was 729.89 mGy-cm. COMPARISON: 09/22/2020 FINDINGS: Lung bases are clear. Heart size is normal. No pericardial or pleural effusion. Focal hepatic steatos is at the ligamentum teres. Gallbladder, pancreas, spleen and small splenule, bilateral adrenal gland s and kidneys are normal. No abnormal bowel wall thickening or obstruction. Appendix is normal. Bladd er, uterus and bilateral adnexa are unremarkable. No free intraperitoneal gas or fluid. No pathologic ally enlarged abdominal or pelvic lymphadenopathy. Bones are unremarkable. IMPRESSION: 1. No acute intra-abdominal/pelvic process. Reviewed, dictated and finalized at location A.
[2020-12-29] MEDS: FAMOTIDINE 20 MG/2 ML VIAL IV PUSH (11:54)
[2020-12-29] MEDS: LACTATED RINGERS 1,000 ML 999 ML IV CONT (11:54)
[2020-12-29] MEDS: MORPHINE SULFATE (*CRX) 4 MG/ML INJ IV PUSH ×2 (11:54→13:10)
[2020-12-29] MEDS: METOCLOPRAMIDE HCL INJ 10 MG/2 ML VIAL IV PUSH (11:54)
[2020-12-29 11:55] LABS: Basophils Percent Auto 0.2 % (0.2-1.2); Hematocrit 41.7 % (37.0-47.0); Hemoglobin 13.9 g/dL (12.0-15.0); Immature Granulocyte Absolute 0.06 K/mm3 (0.00-0.031); Immature Granulocyte Percent A 0.5 % (0-0.5); Lymphocytes Absolute Auto 1.14 K/mm3 (0.9-3.2); Lymphocytes Percent Auto 8.7 % (18.3-44.2); Mean Corpuscular HGB Conc 33.3 g/dl (32-36); Mean Corpuscular Hemoglobin 29.4 pg (26-34); Mean Corpuscular Volume 88.2 fl (80-100); Monocytes Absolute Auto 0.5 K/mm3 (0.1-0.6); Monocytes Percent Auto 4.1 % (2.6-8.5); Neutrophils Absolute Auto 11.3 K/mm3 (1.3-6.7); Neutrophils Percent Auto 86.5 % (45.5-73.1); Platelet Count Result 419 k/mm3 (150-375); Red Blood Count 4.73 M/mm3 (4.2-5.4); Red Cell Distribution Width 11.9 % (11.5-14.5); White Blood Count 13.1 K/mm3 (4.5-10.0)
[2020-12-29 12:01] LABS: Lactic Acid Reflex 1.7 mmol/L (0.7-2.1)
[2020-12-29 12:08] LABS: Alanine Aminotransferase 16 U/L (4-35); Albumin Level 4.7 g/dL (3.5-5.1); Alkaline Phosphatase 80 U/L (38-126); Anion Gap 11 mmol/L (8-16); Aspartate Amino Transferase 23 U/L (14-36); Bilirubin,Total 0.6 mg/dL (0.2-1.3); Blood Urea Nitrogen 9 mg/dL (7-17); CRP 0.5 mg/dL (<1.0); Calcium 9.7 mg/dL (8.4-10.2); Carbon Dioxide 24 mmol/L (22-30); Chloride 106 mmol/L (98-107); Estimated CRCL calculation 101 ml/min; Estimated Glomerular Filt Rate > 60; Glucose 121 mg/dL (65-105); Lipase 119 U/L (23-300); Potassium 3.7 mmol/L (3.4-5.0); Sodium 141 mmol/L (137-145)
[2020-12-29 12:09] LABS: INR 1.1; Prothrombin Time 15.1 Seconds (11.1-14.7)
[2020-12-29] MEDS: ONDANSETRON INJ 4 MG/2 ML VIAL IV PUSH (13:09)
[2020-12-29] MEDS: LORazepam INJ (*CRX) 2 MG/ML VIAL 1 MG IV PUSH (13:09)
--- NOTE | 2020-12-29 14:26 | ED.GENADULT ---
HPI - General Adult General Chief complaint: Nausea/Vomiting/Diarrhea Stated complaint: N/V Time Seen by Provider: 12/29/20 10:55 Source: patient, RN notes reviewed and old records reviewed Mode of arrival: ambulatory Limitations: no limitations History of Present Illness HPI narrative: Patient is a 20-year-old female who returns to emergency department for evaluation of nausea and vomiting patient was seen last night for similar occurrence medicated and sent home continues to have emesis patient with history of Crohn's followed by GI. Patient has multiple episodes of emesis is also had some loose stools but denies any hematemesis or melena. Patient on arrival appears uncomfortable. Patient with multiple episodes of emesis this morning Related Data Allergies Allergy/AdvReac Type Severity Reaction Status Date / Time No Known Allergies Allergy Verified 12/29/20 11:32 Review of Systems Review of Systems: All systems reviewed & are unremarkable except as noted in HPI and below PMFSH Past Medical History Medical History Abdominal pain Clostridioides difficile diarrhea Crohn's ileocolitis Healthy female adult Nausea and vomiting in adult Family History Family History Other Unknown family medical history Social History Social History Smoking status: Never smoker Alcohol intake: never Substance use: never Gender identity (if verbalized by the patient): Female Spiritual care concerns: No Exam Narrative: Exam Narrative: GENERAL: Ill-appearing, well-nourished, uncomfortable and in no acute distress. HEAD: Normocephalic, atraumatic. EYES: PERRLA and EOMI. ENT: Nares clear, no rhinorrhea or epistaxis. Mucous membranes moist. CHEST: Clear to auscultation. No respiratory distress. No wheezes rales or rhonchi HEART: Regular rate and rhythm. No murmur heard. Normal peripheral pulses. ABDOMEN: Soft, generalized abdominal tenderness, nondistended EXTREMITIES: Normal range of motion. No edema. SKIN: Warm, dry, no rash. NEURO: No focal deficits. Alert and oriented x3. PSYCH: Normal mood and affect. Course Course Emergency Course: Patient evaluated the emergency department in the room at this time aware of case findings treatment plan and diagnosis agreeing to stay in hospital given her continued emesis with GI consult patient will be given steroids per recommendation of GI will send off for C. difficile given that she had had this recently patient no high risk changes in the imaging Consultations Consultation #1: Discussed case with Dr. Alberto GI who will consult on patient would like her to receive Solu-Medrol 40 every 12 and will reevaluate in hospital Discussed case with Eileen kumar hospitalist who is agreed to accept the patient Date: 12/29/20 Time: 14:29 Vital Signs Vital signs: Vital Signs Temperature 97.3 F L 12/29/20 10:48 Pulse Rate 67 12/29/20 10:48 Respiratory Rate 16 12/29/20 10:48 Blood Pressure 163/98 H 12/29/20 10:48 Pulse Oximetry 100 12/29/20 10:48 Temperature 99.2 F 12/29/20 11:22 Pulse Rate 60 12/29/20 13:11 Respiratory Rate 19 12/29/20 13:11 Blood Pressure 126/75 12/29/20 13:11 Pulse Oximetry 100 12/29/20 13:11 Medical Decision Making MDM Narrative Medical decision making narrative: Patient could be having a Crohn's flare with history of similar occurrence in the past she had improvement with medications will be brought into the hospital given her continued emesis with GI consult ABCs and vital signs intact and stable Vital Signs Vital Signs: Vital Signs Temperature 97.3 F L 12/29/20 10:48 Pulse Rate 67 12/29/20 10:48 Respiratory Rate 16 12/29/20 10:48 Blood Pressure 163/98 H 12/29/20 10:48 Pulse Oximetry 100 12/29/20 10:48 Temperature 99.2 F 12/29/20 11:2
--- NOTE | 2020-12-29 16:15 | PC.NURSE ---
Hospitalist at bedside. Pt no longer vomiting, reports slightly improved abd pain. No episodes of diarrhea during stay
--- NOTE | 2020-12-29 16:40 | ADMGEN ---
This patient, Kirsten Shen, was admitted to Medical Room 246-. Patient/family oriented to hospital policies and general routines including ID bracelet, bed and alarms, visiting hours, pain management, procedures, bathroom and other care routines, personal items, smoking policy, room service/diet, and visiting hours. Information on how to activate the Rapid Response Team has been discussed. Patient/Family are encouraged to report perceived risks to care and to ask questions if they do not understand what they are told or what they should do.
[2020-12-29] MEDS: LACTATED RINGERS 1,000 ML 125 ML IV CONT (17:23)
[2020-12-29] MEDS: methylPREDNISolone SOD SUCC 40 MG VIAL IV PUSH (17:23)
--- NOTE | 2020-12-29 17:57 | PM.IMHP ---
H&P: HPI History of Present Illness Date/Time: 12/29/20 17:57 this is a 20-year-old female patient who has a past medical history of gastritis and Crohn's disease. She has had EGDs and colonoscopy September 24 of this year. Please see report. today she came to the emergency room today for evaluation of nausea and vomiting. She was seen in the emergency room last night and was sent home on p.o. Zofran and prednisone for her Crohn's. The patient stated that she felt fine when she went home and she tried the oral Zofran but then she continued to vomit today. The patient stated that she had several emesis today maybe 4- 5. And she did not notice any blood in her stool or emesis. Dr. Alberto has been consulted and agrees to see the patient. On IV fluids, morphine Reglan, Pepcid, Ativan, and Zofran in the emergency room. No fever chills. The patient is being admitted to observation services on the date of service of 12/29/2020 Chief Complaint: Nausea vomiting Review of Systems Review of Systems: All systems reviewed & are unremarkable except as noted in HPI and below Constitutional: Constitutional: Reports as per HPI and Reports no additional constitutional complaints Eyes: Eyes: Reports as per HPI and Reports no additional eye complaints ENT: Reports system reviewed and no additional complaints, except as documented and Reports Normal hearing present Cardiovascular: Cardiovascular: Reports no additional cardiovascular complaints Respiratory: Respiratory: Reports no additional respiratory complaints and Reports no additional respiratory complaints Gastrointestinal: Gastrointestinal: Reports as per HPI and Reports no additional gastrointestinal complaints Musculoskeletal: Musculoskeletal: Reports no additional musculoskeletal complaints Integumentary/Breasts: Skin/Breast: Reports system reviewed and no additional complaints, except as docu and Reports as per HPI Neurologic: Reports system reviewed and no additional complaints, except as documented, Reports as per HPI and Reports Normal hearing present Psychiatric: Psychiatric: Reports no additional psychiatric complaints and Reports as per HPI Endocrine: Endocrine: Reports no additional endocrine complaints Hematologic/Lymphatic: Hematologic/Lymphatic: Reports no additional hematologic/lymphatic complaints Allergic/Immunologic: Allergic/Immunologic: Reports no additional allergic/immunologic complaints [facility] Past Medical History Medical History (Updated 12/29/20 @ 14:31 by Titus Segundo PA-C) Abdominal pain Clostridioides difficile diarrhea Crohn's ileocolitis Healthy female adult Nausea and vomiting in adult Surgical History Surgical History (Updated 12/29/20 @ 18:04 by Eileen Rincon NP) History of colonoscopy History of esophagogastroduodenoscopy (EGD) Family History Family History (Updated 12/29/20 @ 18:06 by Eileen Rincon NP) Mother Ulcerative colitis Father Anxiety Other Unknown family medical history Social History Social History (Updated 12/29/20 @ 18:10 by Eileen Rincon NP) Social History: 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 She is a lifelong nonsmoker. She does not use any alcohol marijuana or illicit drugs. She is a full code and she does not have a durable power assistant county attorney. She lives with family. She desires to be a full code Smoking status: Never smoker Alcohol intake: never Substance use: never Substance use type: does not use Gender identity (if verbalized by the patient): Female Spiritual care concerns: No Meds Home Medications and Allergies Home Medications Medication Instructions Recorded Confirmed Type pantoprazole [Protonix] 40 mg PO BID #60 tablet 09/27/20 12/29/20 Rx mesalamine 3.6 g PO DAILY 56 Days #168 tablet 11/17/20 12/29/20 Rx ondansetron 4 mg PO Q6H PRN #20 tablet 12/28/20 12/29/20 Rx prednisone 10 mg PO DAILY 5 Days #5 tablet 12/28/20 12/29/20 Rx prednisone
[2020-12-29] MEDS: MESALAMINE 400 MG DELAYED RELEASE CAPSULE 800 MG PO (19:04)
[2020-12-29] MEDS: MORPHINE SULFATE (*CRX) 2 MG/ML INJ IV PUSH (20:18)
[2020-12-29] MEDS: SUCRALFATE SUSP 100 MG/ML 10 ML UDC 1000 MG PO (20:19)
[2020-12-29] MEDS: PANTOPRAZOLE SODIUM IV 40 MG VIAL IV PUSH (20:19)
[2020-12-30] VITALS (8 sets, daily range): BP systolic 110–128; BP diastolic 65–79; PULSE 57–75; RESP 14–18; TEMP 36.3–37; O2SAT 98–100
[2020-12-30] MEDS: LACTATED RINGERS 1,000 ML 125 ML IV CONT ×3 (01:25→17:14)
[2020-12-30 05:39] LABS: Basophils Percent Auto 0.2 % (0.2-1.2); Hematocrit 36.1 % (37.0-47.0); Hemoglobin 11.9 g/dL (12.0-15.0); Immature Granulocyte Absolute 0.03 K/mm3 (0.00-0.031); Immature Granulocyte Percent A 0.4 % (0-0.5); Lymphocytes Absolute Auto 1.35 K/mm3 (0.9-3.2); Lymphocytes Percent Auto 16.8 % (18.3-44.2); Mean Corpuscular Hemoglobin 29.7 pg (26-34); Mean Platelet Volume 10.5 fl (7.4-10.4); Monocytes Absolute Auto 0.6 K/mm3 (0.1-0.6); Neutrophils Percent Auto 74.6 % (45.5-73.1); Platelet Count Result 322 k/mm3 (150-375); Red Blood Count 4.01 M/mm3 (4.2-5.4); Red Cell Distribution Width 11.7 % (11.5-14.5)
[2020-12-30] MEDS: SUCRALFATE SUSP 100 MG/ML 10 ML UDC 1000 MG PO ×4 (06:00→19:58)
[2020-12-30] MEDS: methylPREDNISolone SOD SUCC 40 MG VIAL IV PUSH ×2 (06:00→17:15)
[2020-12-30 06:04] LABS: Alanine Aminotransferase 11 U/L (4-35); Albumin Level 3.7 g/dL (3.5-5.1); Alkaline Phosphatase 56 U/L (38-126); Anion Gap 4 mmol/L (8-16); Aspartate Amino Transferase 17 U/L (14-36); Bilirubin,Total 0.5 mg/dL (0.2-1.3); Blood Urea Nitrogen 11 mg/dL (7-17); Calcium 8.8 mg/dL (8.4-10.2); Carbon Dioxide 27 mmol/L (22-30); Chloride 108 mmol/L (98-107); Estimated CRCL calculation 101 ml/min; Estimated Glomerular Filt Rate > 60; Glucose 89 mg/dL (65-105); Potassium 3.9 mmol/L (3.4-5.0); Sodium 139 mmol/L (137-145)
[2020-12-30] MEDS: MORPHINE SULFATE (*CRX) 2 MG/ML INJ IV PUSH ×4 (07:54→21:39)
[2020-12-30] MEDS: ONDANSETRON INJ 4 MG/2 ML VIAL IV PUSH ×3 (07:54→17:15)
[2020-12-30] MEDS: PANTOPRAZOLE SODIUM IV 40 MG VIAL IV PUSH ×2 (08:49→19:58)
[2020-12-30] MEDS: MESALAMINE 400 MG DELAYED RELEASE CAPSULE 800 MG PO ×3 (08:50→16:20)
--- NOTE | 2020-12-30 13:59 | PM.IMPN ---
Progress Note: A&P Assessment and Plan (1) Erosive gastritis: Code(s): K29.60 - Other gastritis without bleeding Status: Acute Assessment and Plan: Continue with anti nausea medicine, Carafate and IV pantoprazole last EGD in September shows that she had gastritis. will need to be on a bland diet at home. clear liquid diet advanced to full liquid diet today for lunch Continue to monitor electrolytes. potassium 3.9, checking magnesium in the morning vital signs today are normal with a heart rate of 55-69 and no fevers noted. CT abdomen pelvis showed no obstruction no lymphadenopathy and no further concerns. Dr. Alberto has been consulted. Appreciate and will follow recommendations of GI Dr. Alberto. (2) Crohn's ileocolitis: Code(s): K50.80 - Crohn's disease of both small and large intestine without complications Status: Acute Assessment and Plan: colonoscopy September this year. Biopsies were taken at that time. history of having C diff back in September as well she was treated with antibiotics. no diarrhea at this time. still unable to tolerate much by mouth in terms of food or fluids. stay overnight as she is currently unable to keep herself hydrated continue her IV fluids at this time at 75 mL/hour. advance her diet as tolerated and monitor. finding a Crohn's disease specialist and medications that are covered by her insurance to avoid multiple readmissions continue Solu-Medrol 40 mg q.[address] Alberto has been consulted. Subjective Date/time seen: 12/30/20 13:59 Kirsten is feeling better than her when she was admitted, but is still unable to tolerate much by mouth in terms of food or fluids. She will need to stay overnight as she is currently unable to keep herself hydrated. Will continue her IV fluids at this time at 75 mL/hour. Will advance her diet as tolerated and monitor. She is currently in the process of finding a Crohn's disease specialist that is covered by her insurance, I gave her a few recommendations at [facility]. She is young at 20 years old and will have many years to deal with this debilitating disease. The sooner she gets this disease under control with medications and physicians that her insurance covers, then the better. She has been in and out of the hospital multiple times, recently August and October of this year. Her vital signs today are normal with a heart rate of 55-69 and no fevers noted. Her CT abdomen pelvis showed no obstruction no lymphadenopathy and no further concerns. Appreciate and will follow recommendations of GI Dr. Alberto. Review of Systems Review of Systems: All systems reviewed & are unremarkable except as noted in HPI and below Constitutional: Constitutional: Reports as per HPI and Reports no additional constitutional complaints Eyes: Eyes: Reports as per HPI and Reports no additional eye complaints ENT: Reports system reviewed and no additional complaints, except as documented and Reports Normal hearing present Cardiovascular: Cardiovascular: Reports no additional cardiovascular complaints Respiratory: Respiratory: Reports no additional respiratory complaints and Reports no additional respiratory complaints Gastrointestinal: Gastrointestinal: Reports as per HPI and Reports no additional gastrointestinal complaints Musculoskeletal: Musculoskeletal: Reports no additional musculoskeletal complaints Integumentary/Breasts: Skin/Breast: Reports system reviewed and no additional complaints, except as docu and Reports as per HPI Neurologic: Reports system reviewed and no additional complaints, except as documented, Reports as per HPI and Reports Normal hearing present Psychiatric: Psychiatric: Reports no additional psychiatric complaints and Reports as per HPI Endocrine: Endocrine: Reports no additional endocrine complaints Hematologic/Lymphatic: Hematologic/Lymphatic: Re
--- NOTE | 2020-12-30 16:01 | WPDGICN ---
Assessment and Plan Assessment and plan (1) Nausea and vomiting in adult: Code(s): R11.2 - Nausea with vomiting, unspecified Status: Acute Assessment and Plan: wonder if could be flare and now better with medical treatment will advance diet reviewed ct scan and normal, also liver enzymes and lipase normal will get inflammatory markers (2) Crohn's ileocolitis: Code(s): K50.80 - Crohn's disease of both small and large intestine without complications Status: Acute Assessment and Plan: ran out of mesalamine will need enough refills at discharge on iv steroids, probably tomorrow can go home with slow prednisone taper, then will need follow up with GI (she can see me in office but we do not take her insurance) (3) Erosive gastritis: Code(s): K29.60 - Other gastritis without bleeding Status: Acute Assessment and Plan: on ppi advance diet (4) Abdominal pain: Code(s): R10.9 - Unspecified abdominal pain Status: Acute (5) Leukocytosis: Qualifiers: Leukocytosis type: unspecified Qualified Code(s): D72.829 - Elevated white blood cell count, unspecified Code(s): D72.829 - Elevated white blood cell count, unspecified Status: Acute GI Consult Note Consult date/time: 12/30/20 16:01 Reason for consult: n/v, crohn's HPI: Kirsten Shen is a 20 year old female who was admitted after worsening nausea/vomiting and abdominal pain, she went to ER then came to our office but because ongoing symptoms returned to ER and finally admitted to the hospital. She says that 2 days ago after she ran out of mesalamine for her Crohns disease (First diagnosed in August 2020) started having more nausea and abdominal pain. First ER visit had WBC at 10.5 given script for prednisone taper and Zofran and discharged but similar symptoms. Also had 2 episodes of diarrhea, no blood in stools. Diffuse upper abdominal pain that starts in mid abdomen and radiates bilaterally. I performed EGD and colonoscopy back in September, had severe erosive gastritis on pantoprazole BID and colonoscopy with patchy colitis and mild ileitis, bx consistent with Crohns disease. Hx of c-diff in September and treated with vancomycin. CT scan reviewed and normal. She is feeling better after medical treatment. Review of Systems Constitutional: Constitutional: Denies chills Eyes: Eyes: Reports no additional eye complaints ENT: Reports Normal hearing present Cardiovascular: Cardiovascular: Reports no additional cardiovascular complaints and Denies chest pain Respiratory: Respiratory: Denies dyspnea Gastrointestinal: Gastrointestinal: Reports abdominal pain, Reports nausea and Reports vomiting Genitourinary: Genitourinary: Denies hematuria Musculoskeletal: Musculoskeletal: Reports neck pain Integumentary/Breasts: Skin/Breast: Reports system reviewed and no additional complaints, except as docu Neurologic: Reports system reviewed and no additional complaints, except as documented Psychiatric: Psychiatric: Reports no additional psychiatric complaints [facility] Past Medical History Medical History (Updated 12/29/20 @ 14:31 by Titus Segundo PA-C) Abdominal pain Clostridioides difficile diarrhea Crohn's ileocolitis Healthy female adult Nausea and vomiting in adult Surgical History Surgical History (Updated 12/29/20 @ 18:04 by Eileen Rincon NP) History of colonoscopy History of esophagogastroduodenoscopy (EGD) Family History Family History (Updated 12/29/20 @ 18:06 by Eileen Rincon NP) Mother Ulcerative colitis Father Anxiety Other Unknown family medical history Social History Social History (Updated 12/29/20 @ 18:10 by Eileen Rincon NP) Social History: 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 She is a lifelong nonsmoker. She does not use any alcohol marijuana or illicit drugs. She is a full code and she does not have a durable power claim attorney.
[2020-12-31] VITALS (7 sets, daily range): BP systolic 110–133; BP diastolic 61–85; PULSE 50–78; RESP 16–18; TEMP 36.2–36.9; O2SAT 97–100
[2020-12-31] MEDS: MORPHINE SULFATE (*CRX) 2 MG/ML INJ IV PUSH (06:15)
[2020-12-31] MEDS: SUCRALFATE SUSP 100 MG/ML 10 ML UDC 1000 MG PO ×4 (06:33→20:35)
[2020-12-31] MEDS: methylPREDNISolone SOD SUCC 40 MG VIAL IV PUSH (06:33)
[2020-12-31] MEDS: LACTATED RINGERS 1,000 ML 75 ML IV CONT (07:22)
--- NOTE | 2020-12-31 09:44 | PM.IMPN ---
Progress Note: A&P Assessment and Plan (1) Erosive gastritis: Code(s): K29.60 - Other gastritis without bleeding Status: Acute Assessment and Plan: Continue with anti nausea medicine, Carafate and IV pantoprazole, Added Levsin PRN. last EGD in September shows that she had gastritis. will need to be on a bland diet at home. still unable to tolerate much by mouth in terms of food this morning or fluids, last night was better. D/C'd her IVFs this morning, will see if she can keep herself hydrated diet was advanced to soft bland diet , tolerating some of it. Continue to monitor electrolytes. potassium 3.9,mag 1.9, Na 139 vital signs today are normal with a heart rate of 63-78 and no fevers noted. CT abdomen pelvis showed no obstruction no lymphadenopathy and no further concerns. Appreciate and will follow recommendations of GI Dr. Alberto. (2) Crohn's ileocolitis: Code(s): K50.80 - Crohn's disease of both small and large intestine without complications Status: Acute Assessment and Plan: colonoscopy September this year. Biopsies were taken at that time. history of having C diff back in September as well she was treated with antibiotics. no N/V/diarrhea at this time. still unable to tolerate much by mouth in terms of food this morning or fluids, last night was better. D/C'd her IVFs this morning, will see if she can keep herself hydrated diet was advanced to soft bland diet , tolerating some of it. continue Solu-Medrol 40 mg daily scheduled Appreciate GI Dr. Alberto consultation and recommendations. Subjective Date/time seen: 12/31/20 09:44 Kirsten Shen is feeling slightly better, she is trying to eat more, and is hoping and planning for possible discharge later today. Had a decent intake with dinner last night, but only ate a partial serving of peaches this morning. Will discontinue her IV fluids, and see how she does with oral intake. Yesterday she took an 1450 mils and her output was 1150 mL; and the day prior to that, intake was 4180 mL and her output was 2100 mL She is on sucralfate, Protonix twice a day, steroids 40 mg methylprednisone b.i.d. IV decreased to once a day, Zoodalys p.r.n. and GI Dr. Gardner consulted. Started her on Levsin today p.r.n. to see if that would help her gastric discomfort. She has had no nausea or vomiting since I examined her yesterday. She has had no stool output since her admission as well. She denies having any bloody stools at home or prior to her admission. She does continue to have upper gastric discomfort and pain. She has been using ice packs. She does continue to have mild discomfort and pain with deep palpation on the right lower quadrant of her abdomen. She also has Tylenol p.r.n. ordered. I have encouraged ambulation today. Abdomen is soft and does not appear to be distended or bloated at this time. Review of Systems Review of Systems: All systems reviewed & are unremarkable except as noted in HPI and below Constitutional: Constitutional: Reports as per HPI and Reports no additional constitutional complaints Eyes: Eyes: Reports as per HPI and Reports no additional eye complaints ENT: Reports system reviewed and no additional complaints, except as documented and Reports Normal hearing present Cardiovascular: Cardiovascular: Reports no additional cardiovascular complaints Respiratory: Respiratory: Reports no additional respiratory complaints and Reports no additional respiratory complaints Gastrointestinal: Gastrointestinal: Reports as per HPI, Reports no additional gastrointestinal complaints, Reports abdominal pain, Denies melena, Denies bloating, Denies diarrhea, Denies loose stools, Denies nausea, Denies odynophagia, Denies vomiting and Denies hematemesis Musculoskeletal: Musculoskeletal: Reports no additional musculoskeletal complaints Integumentary/Breasts: Skin/Breast: Reports system reviewed and no additional complaints, except as
[2020-12-31] MEDS: MESALAMINE 400 MG DELAYED RELEASE CAPSULE 800 MG PO ×3 (10:09→16:28)
[2020-12-31] MEDS: PANTOPRAZOLE SODIUM IV 40 MG VIAL IV PUSH ×2 (10:09→20:35)
[2020-12-31 11:59] LABS: Hematocrit 38.5 % (37.0-47.0); Mean Corpuscular HGB Conc 33.8 g/dl (32-36); Mean Corpuscular Volume 88.9 fl (80-100); Mean Platelet Volume 10.6 fl (7.4-10.4); Platelet Count Result 333 k/mm3 (150-375); Red Blood Count 4.33 M/mm3 (4.2-5.4); Red Cell Distribution Width 11.6 % (11.5-14.5); White Blood Count 10.5 K/mm3 (4.5-10.0)
[2020-12-31 12:07] LABS: Anion Gap 5 mmol/L (8-16); Blood Urea Nitrogen 12 mg/dL (7-17); CRP < 0.5 mg/dL (<1.0); Calcium 9.3 mg/dL (8.4-10.2); Carbon Dioxide 29 mmol/L (22-30); Chloride 103 mmol/L (98-107); Estimated CRCL calculation 90 ml/min; Estimated Glomerular Filt Rate > 60; Glucose 103 mg/dL (65-105); Potassium 3.8 mmol/L (3.4-5.0); Sodium 137 mmol/L (137-145)
[2020-12-31 12:14] LABS: Erythrocyte Sedimentation Rate 32 mm/hr (0-20)
--- NOTE | 2020-12-31 16:05 | WPDGIPROGNO ---
Progress Note: A&P Assessment and Plan (1) Erosive gastritis: Code(s): K29.60 - Other gastritis without bleeding Status: Acute Assessment and Plan: on ppi, continue when she goes home (2) Abdominal pain: Code(s): R10.9 - Unspecified abdominal pain Status: Acute Assessment and Plan: similar pain, diet as tolerated (3) Crohn's ileocolitis: Code(s): K50.80 - Crohn's disease of both small and large intestine without complications Status: Acute Assessment and Plan: on iv solumedrol, patient to go home on mesalamine (already sent prescription to her pharmacy) and oral steroids- probably tomorrow (4) Nausea and vomiting in adult: Code(s): R11.2 - Nausea with vomiting, unspecified Status: Acute Assessment and Plan: antiemetics prn, on ppi Subjective Date/time seen: 12/31/20 16:05 Interval history: still with some abdominal pain, no more BM's Review of Systems Review of Systems: All systems reviewed & are unremarkable except as noted in HPI and below Exam Const: General: comfortable and no acute distress HENMT: General nose exam: Normal nares present Eyes: General: appearance normal, both eyes and all related structures Neck: Neck: no JVD Resp: Auscultation: clear to auscultation bilaterally Cardio: Rate: regular rate Rhythm: regular rhythm GI: Inspection: non-distended GI Palp: Yes Soft to palpation, Yes Tenderness to palpation present (GI) (ttp diffusely, mild, no rebound) and No Guarding due to palpation present (GI) Auscultation: normal bowel sounds Skin: General skin exam: normal color Neuro: General: gait normal Speech: normal speech Extrem: General: normal to inspection Psych: Mental Status: mental status grossly normal Objective Data Vital Signs Vital Signs: Vital Signs - 24 hr 12/30/20 18:00 12/30/20 21:52 12/30/20 22:22 Temperature 98.3 F 97.4 F L Pulse Rate 60 75 Respiratory Rate 14 16 Blood Pressure 128/75 121/74 Pulse Oximetry 100 98 99 12/31/20 02:00 12/31/20 06:00 12/31/20 10:00 Temperature 97.6 F 98.4 F 97.5 F L Pulse Rate 78 63 50 L Respiratory Rate 18 18 16 Blood Pressure 128/75 133/85 112/72 Pulse Oximetry 99 97 99 12/31/20 14:00 Temperature 97.5 F L Pulse Rate 59 L Respiratory Rate 16 Blood Pressure 119/61 Pulse Oximetry 100 Intake/Output Intake/Output: Intake & Output 12/28/20 12/29/20 12/30/20 12/31/20 23:59 23:59 23:59 23:59 Intake Total 1170 4180 1810 Output Total 2100 1150 Balance 1170 2080 660 Meds/Results Medications: Active Medications Generic Name Dose Route Start Last Admin Trade Name Freq PRN Reason Stop Dose Admin Acetaminophen 1,000 mg 12/31/20 09:45 Acetaminophen 500 Mg Tablet PO Q6H PRN Pain 1-3 or Fever Hyoscyamine 0.125 mg 12/31/20 09:40 Hyoscyamine Sulfate 0.125 Mg Tablet PO Q4H PRN GI discomfort Mesalamine 800 mg 12/29/20 17:00 12/31/20 13:16 Mesalamine 400 Mg Delayed Release Capsule PO 800 mg TID REENA Administration Methylprednisolone Sodium Succinate 40 mg 01/01/21 09:00 Methylprednisolone Sod Succ 40 Mg Vial IV PUSH DAILY REENA Morphine Sulfate 2 mg 12/29/20 20:05 12/31/20 06:15 Morphine Sulfate (*Crx) 2 Mg/Ml Inj IV PUSH 2 mg Q4H PRN Administration Pain Rated 7-10 Ondansetron HCl 4 mg 12/29/20 14:32 12/30/20 17:15 Ondansetron Inj 4 Mg/2 Ml Vial IV PUSH 4 mg Q4H PRN Administration Nausea Pantoprazole Sodium 40 mg 12/29/20 21:00 12/31/20 10:09 Pantoprazole Sodium Iv 40 Mg Vial IV PUSH 40 mg Q12HR REENA Administration Sucralfate 1,000 mg 12/29/20 21:00 12/31/20 13:16 Sucralfate Susp 100 Mg/Ml 10 Ml Udc PO 1,000 mg ACHS REENA Administration Radiology Results: ITS Impressions Abdomen/Pelvis CT 12/29/20 12:52 IMPRESSION: 1. No acute intra-abdominal/pelvic process. Labs Labs: Laboratory Results - last 24 hr
[2021-01-01 00:29] VITALS: BP 102/66; PULSE 62; RESP 16; TEMP 36; O2SAT 99
[2021-01-01 05:39] VITALS: BP 128/77; PULSE 60; RESP 16; TEMP 36.2; O2SAT 100
[2021-01-01] MEDS: SUCRALFATE SUSP 100 MG/ML 10 ML UDC 1000 MG PO ×2 (06:29→13:02)
[2021-01-01] MEDS: methylPREDNISolone SOD SUCC 40 MG VIAL IV PUSH (08:43)
[2021-01-01] MEDS: PANTOPRAZOLE SODIUM IV 40 MG VIAL IV PUSH (08:43)
[2021-01-01] MEDS: MESALAMINE 400 MG DELAYED RELEASE CAPSULE 800 MG PO ×2 (08:44→13:02)
[2021-01-01 10:30] VITALS: BP 136/97; PULSE 72; RESP 16; TEMP 36.8; O2SAT 100
--- NOTE | 2021-01-01 13:01 | PM.DS ---
DS: Admitting Diagnosis Admitting Diagnosis Admitting Diagnosis: Crohn's and Gastritis DS: Discharge Diagnosis Discharge Diagnosis (1) Erosive gastritis: Code(s): K29.60 - Other gastritis without bleeding Status: Acute Assessment and Plan: Improved Continue with anti nausea medicine, Carafate and IV pantoprazole, Added Levsin PRN. last EGD in September shows that she had gastritis. will need to be on a bland diet at home. Able to tolerate diet well last night and today, ate 50% of her breakfast today and 100% of her lunch today. D/C'd her IVFs yesterday, was able to hydrate herself orally, intake yesterday was 2250ml with output of 3050 mL, and an intake of 940 ml today with an output of 200 mL. diet was advanced to soft bland diet , tolerating some of it. Continue to monitor electrolytes-have been stable vital signs today are normal with a heart rate of 63-78 and no fevers noted. CT abdomen pelvis showed no obstruction no lymphadenopathy and no further concerns. Discharged on Protonix Appreciate and will follow recommendations of GI Dr. Alberto. (2) Crohn's ileocolitis: Code(s): K50.80 - Crohn's disease of both small and large intestine without complications Status: Acute Assessment and Plan: Improved colonoscopy September this year. Biopsies were taken at that time. history of having C diff back in September as well she was treated with antibiotics. no N/V/diarrhea at this time. will need to be on a bland diet at home. Able to tolerate diet well last night and today, ate 50% of her breakfast today and 100% of her lunch today. D/C'd her IVFs yesterday, was able to hydrate herself orally, intake yesterday was 2250ml with output of 3050 mL, and an intake of 940 ml today with an output of 200 mL. diet was advanced to soft bland diet , tolerating some of it. Discharging on a prednisone taper as well as mesalamine and Protonix Appreciate GI Dr. Alberto consultation and recommendations. DS: Summary Hospital Course Hospital Course: Improved through bowel rest, IV fluids, Mesalimine and IV steroid therapy. Time Spent with Patient Time attestation: Total time spent providing and/or coordinating discharge services: 60 min Exam Narrative: Exam Narrative: GENERAL:alert and awake, well-nourished, and in no acute distress.uncomfortable only with palpation of RLQ. HEAD: Normocephalic, atraumatic. EYES: PERRLA and EOMI. ENT: Nares clear, no rhinorrhea or epistaxis. Mucous membranes moist. CHEST: Clear to auscultation. No respiratory distress. No wheezes rales or rhonchi HEART: Regular rate and rhythm. No murmur heard. Normal peripheral pulses. ABDOMEN: Soft, palpable,, no tenderness noted, nondistended/nonbloated. EXTREMITIES: Normal range of motion. No edema. SKIN: Warm, dry, no rash. NEURO: No focal deficits. Alert and oriented x3. PSYCH: Normal mood and affect. Const: General: cooperative, healthy appearing, comfortable, no acute distress, well developed, alert, awake and Physically active Nutritional Appearance: average body habitus and well nourished Orientation/consciousness: oriented to person, oriented to place, oriented to time and patient oriented x3 Limitations: no limitations HENMT: Head: normal to inspection, No palpable skull fracture present, normocephalic and atraumatic Ears: hearing grossly normal bilaterally and external ears normal General nose exam: Normal external nose present Eyes: General: appearance normal, both eyes and all related structures Alignment and Position: alignment normal Periorbital: periorbital findings normal Eyelids: eyelids normal Conjunctivae: conjunctivae normal Sclera: sclerae normal Cornea: corneas normal Pupils: Equal, round and reactive pupils present EOM: EOMs intact bilaterally Neck: Neck: normal visual inspection, full ROM, no lymphadenopathy, trachea midline and supple Thyroid: thyroid normal Carotids: normal carotid upstrok
--- NOTE | 2021-01-01 13:16 | WPDGIPROGNO ---
Progress Note: A&P Assessment and Plan (1) Crohn's ileocolitis: Code(s): K50.80 - Crohn's disease of both small and large intestine without complications Status: Acute Assessment and Plan: on iv solumedrol but will switch to oral prednisone with slow taper (prednisone 40mg daily and reduce 10 mg each week) patient to go home on mesalamine (already sent prescription to her pharmacy) she will follow-up with a new GI doctor (godmother already found one for her- unfortunately we do not take her insurance for office visit) (2) Erosive gastritis: Code(s): K29.60 - Other gastritis without bleeding Status: Acute Assessment and Plan: on ppi, continue when she goes home tolerating soft diet (3) Abdominal pain: Code(s): R10.9 - Unspecified abdominal pain Status: Acute Assessment and Plan: similar pain, diet as tolerated (4) Nausea and vomiting in adult: Code(s): R11.2 - Nausea with vomiting, unspecified Status: Acute Assessment and Plan: antiemetics prn, on ppi resolved Subjective Date/time seen: 01/01/21 13:16 Interval history: eating regular lunch, no nausea or abdominal pain. She is feeling like going home Review of Systems Review of Systems: All systems reviewed & are unremarkable except as noted in HPI and below Exam Const: General: comfortable and no acute distress HENMT: General nose exam: Normal nares present Eyes: General: appearance normal, both eyes and all related structures Neck: Neck: no JVD Resp: Auscultation: clear to auscultation bilaterally Cardio: Rate: regular rate Rhythm: regular rhythm GI: Inspection: non-distended GI Palp: Yes Soft to palpation, No Tenderness to palpation present (GI) and No Guarding due to palpation present (GI) Auscultation: normal bowel sounds Skin: General skin exam: normal color Neuro: General: gait normal Speech: normal speech Extrem: General: normal to inspection Psych: Mental Status: mental status grossly normal Objective Data Vital Signs Vital Signs: Vital Signs - 24 hr 12/31/20 14:00 12/31/20 18:00 12/31/20 20:16 Temperature 97.5 F L 97.9 F 97.1 F L Pulse Rate 59 L 78 73 Respiratory Rate 16 16 16 Blood Pressure 119/61 110/65 116/61 Pulse Oximetry 100 100 100 12/31/20 22:34 01/01/21 00:29 01/01/21 05:39 Temperature 96.8 F L 97.1 F L Pulse Rate 62 60 Respiratory Rate 16 16 Blood Pressure 102/66 128/77 Pulse Oximetry 99 99 100 01/01/21 10:30 Temperature 98.2 F Pulse Rate 72 Respiratory Rate 16 Blood Pressure 136/97 H Pulse Oximetry 100 Intake/Output Intake/Output: Intake & Output 12/29/20 12/30/20 12/31/20 01/01/21 23:59 23:59 23:59 23:59 Intake Total 1170 4180 2250 940 Output Total 2100 3050 200 Balance 1170 2080 -800 740 Meds/Results Medications: Active Medications Generic Name Dose Route Start Last Admin Trade Name Freq PRN Reason Stop Dose Admin Acetaminophen 1,000 mg 12/31/20 09:45 Acetaminophen 500 Mg Tablet PO Q6H PRN Pain 1-3 or Fever Hyoscyamine 0.125 mg 12/31/20 09:40 Hyoscyamine Sulfate 0.125 Mg Tablet PO Q4H PRN GI discomfort Mesalamine 800 mg 12/29/20 17:00 01/01/21 13:02 Mesalamine 400 Mg Delayed Release Capsule PO 800 mg TID REENA Administration Morphine Sulfate 2 mg 12/29/20 20:05 12/31/20 06:15 Morphine Sulfate (*Crx) 2 Mg/Ml Inj IV PUSH 2 mg Q4H PRN Administration Pain Rated 7-10 Ondansetron HCl 4 mg 12/29/20 14:32 12/30/20 17:15 Ondansetron Inj 4 Mg/2 Ml Vial IV PUSH 4 mg Q4H PRN Administration Nausea Pantoprazole Sodium 40 mg 12/29/20 21:00 01/01/21 08:43 Pantoprazole Sodium Iv 40 Mg Vial IV PUSH 40 mg Q12HR REENA Administration Sucralfate 1,000 mg 12/29/20 21:00 01/01/21 13:02 Sucralfate Susp 100 Mg/Ml 10 Ml Udc PO 1,000 mg ACHS REENA Administration Radiology Results: ITS Impressions Abdomen/Pelvis CT 12/29/20
== END 2021-01-01 14:52 | disposition home or self-care (01) ==
LOC: ANHED 14:30 → ANH2MED 16:20
PROVIDERS: Emergency Medicine Emergency Medical Services; Internal Medicine Gastroenterology; Nurse Practitioner; Admitting Provider Internal Medicine; Emergency Provider Emergency Medicine; Visit Provider Family Medicine
DX: K29.60 Other gastritis without bleeding (principal); K50.80 Crohn's disease of both small and large intestine without complications; R11.2 Nausea with vomiting, unspecified; R10.9 Unspecified abdominal pain; D72.829 Elevated white blood cell count, unspecified
CPT/HCPCS: 36415; 74177; 80048; 80053; 81025; 83605; 83690; 83735; 85025; 85027; 85610; 85652; 85730; 86140; 96361; 96374; 96375; 96376; 99285; A9270; C9113; G0378; G0379; J2060; J2270; J2405; J2765; J2920; J7120; Q9967

== ENCOUNTER 2021-02-02 12:08 | Emergency (ER) | payer OTHER, SELFPAY ==
--- NOTE | ~2021-02-02 | CT_ITS ---
EXAMINATION: CT abdomen pelvis w con EXAM DATE: 02/02/2021 15:06 INDICATION: Colitis. History Crohn's disease. Nausea vomiting and diarrhea. Osteoblastic TECHNIQUE: Spiral CT of the abdomen and pelvis was performed following intravenous injection of 100 m L Omnipaque 350. Axial, coronal and sagittal images of the abdomen and pelvis were reviewed. The do se-length product (DLP) for this examination was 566.45 mGy-cm. The exposure was tailored according to patient size (auto mA exposure control), and iterative reconstruction (ASIR) was used as additiona l dose reduction technique. Comparison is made to prior examination from 09/22/2020. FINDINGS: The liver, spleen, adrenal glands and pancreas are unremarkable. Gallbladder is unremarkab le. No biliary obstruction. Portal and splenic veins are patent. Kidneys enhance symmetrically. T here is no hydronephrosis. The uterus and ovaries are unremarkable, no adnexal mass. The bladder i s unremarkable. There is no retroperitoneal or pelvic lymphadenopathy. The appendix is normal. The stomach and small bowel are unremarkable. There is expected amount of c olonic stool. No free intraperitoneal gas. The heart is normal in size. There are no pericardial or pleural effusions. The lung bases are unremarkable. The bones are unremarkable. IMPRESSION: 1. No acute intra-abdominal findings. Reviewed, dictated and finalized at location B.
[2021-02-02 12:23] VITALS: BP 133/86; PULSE 96; RESP 18; TEMP 36.3; O2SAT 100
[2021-02-02 13:10] LABS: Basophils Percent Auto 0.2 % (0.2-1.2); Eosinophils Percent Auto 0.3 % (0-4.4); Hematocrit 41.4 % (37.0-47.0); Hemoglobin 13.3 g/dL (12.0-15.0); Immature Granulocyte Absolute 0.04 K/mm3 (0.00-0.031); Immature Granulocyte Percent A 0.4 % (0-0.5); Lymphocytes Absolute Auto 1.29 K/mm3 (0.9-3.2); Lymphocytes Percent Auto 11.4 % (18.3-44.2); Mean Corpuscular HGB Conc 32.1 g/dl (32-36); Mean Corpuscular Hemoglobin 29.7 pg (26-34); Mean Corpuscular Volume 92.4 fl (80-100); Mean Platelet Volume 10.1 fl (7.4-10.4); Monocytes Absolute Auto 0.4 K/mm3 (0.1-0.6); Monocytes Percent Auto 3.1 % (2.6-8.5); Neutrophils Absolute Auto 9.6 K/mm3 (1.3-6.7); Neutrophils Percent Auto 84.6 % (45.5-73.1); Platelet Count Result 360 k/mm3 (150-375); Red Blood Count 4.48 M/mm3 (4.2-5.4); Red Cell Distribution Width 11.9 % (11.5-14.5); White Blood Count 11.3 K/mm3 (4.5-10.0)
[2021-02-02 13:14] LABS: Add Urine Microscopic? YES; Appearance Urine Clear (Clear); Bilirubin Urine Negative (Negative); Blood Urine Negative (Negative); Color Urine Yellow (Yellow); Glucose Urine UA Negative (Negative); Ketones Urine Negative (Negative); Leukocyte Esterase Ur Negative LEU/UL (Negative); Mucus Urine Rare /lpf; Nitrate Urine Negative (Negative); Protein Urine 1+ mg/dL (Negative); RBC Urine 0-2 /hpf (0-2); Specific Grav Ur 1.021 (1.001-1.035); Squamous Epithelial Cell Urine Rare /hpf (Few); Urobilinogen Urine Negative mg/dL (<2.0); WBC Urine 0-3 /hpf
[2021-02-02 13:20] LABS: Alanine Aminotransferase 15 U/L (4-35); Albumin Level 4.2 g/dL (3.5-5.1); Alkaline Phosphatase 64 U/L (38-126); Anion Gap 8 mmol/L (8-16); Aspartate Amino Transferase 25 U/L (14-36); Bilirubin,Total 0.4 mg/dL (0.2-1.3); Blood Urea Nitrogen 9 mg/dL (7-17); Calcium 9.2 mg/dL (8.4-10.2); Carbon Dioxide 26 mmol/L (22-30); Chloride 107 mmol/L (98-107); Estimated CRCL calculation 97 ml/min; Estimated Glomerular Filt Rate > 60; Glucose 95 mg/dL (65-105); Lipase 104 U/L (23-300); Potassium 3.9 mmol/L (3.4-5.0); Sodium 141 mmol/L (137-145)
[2021-02-02] MEDS: SODIUM CHLORIDE 0.9% IV 1,000 ML 999 ML IV CONT (13:44)
[2021-02-02] MEDS: FAMOTIDINE 20 MG/2 ML VIAL IV PUSH (13:45)
[2021-02-02] MEDS: MORPHINE SULFATE (*CRX) 4 MG/ML INJ IV PUSH (13:47)
[2021-02-02] MEDS: METOCLOPRAMIDE HCL INJ 10 MG/2 ML VIAL IV PUSH (13:49)
[2021-02-02] MEDS: HYOSCYAMINE SULFATE 0.125 MG TABLET PO (13:50)
[2021-02-02 13:51] VITALS: BP 124/84; PULSE 80; RESP 16; O2SAT 100
[2021-02-02] MEDS: LACTATED RINGERS 1,000 ML 999 ML IV CONT (15:10)
--- NOTE | 2021-02-02 15:34 | ED.GENADULT ---
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 notes some loose stools but denies any rectal bleeding melena hematemesis fever chills patient notes that the pain is constant Related Data Allergies Allergy/AdvReac Type Severity Reaction Status Date / Time No Known Allergies Allergy Verified 02/02/21 12:29 Review of Systems Review of Systems: All systems reviewed & are unremarkable except as noted in HPI and below PMFSH Past Medical History Medical History Abdominal pain Clostridioides difficile diarrhea Crohn's ileocolitis Healthy female adult Nausea and vomiting in adult Surgical History Surgical History History of colonoscopy History of esophagogastroduodenoscopy (EGD) Family History Family History (Updated 12/29/20 @ 18:06 by Eileen Rincon NP) Mother Ulcerative colitis Father Anxiety Other Unknown family medical history Social History Social History Social History: 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 She is a lifelong nonsmoker. She does not use any alcohol marijuana or illicit drugs. 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 She lives with family. She desires to be a full code Smoking status: Never smoker Alcohol intake: never Substance use: never Substance use type: does not use Gender identity (if verbalized by the patient): Female Spiritual care concerns: No Exam Narrative: Exam Narrative: GENERAL: Ill-appearing, well-nourished, and in no acute distress. HEAD: Normocephalic, atraumatic. EYES: PERRLA and EOMI. ENT: Nares clear, no rhinorrhea or epistaxis. Mucous membranes moist. CHEST: Clear to auscultation. No respiratory distress. No wheezes rales or rhonchi HEART: Regular rate and rhythm. No murmur heard. Normal peripheral pulses. ABDOMEN: Soft, generalized tenderness, nondistended EXTREMITIES: Normal range of motion. No edema. SKIN: Warm, dry, no rash. NEURO: No focal deficits. Alert and oriented x3. PSYCH: Normal mood and affect. Course Course Emergency Course: Patient evaluated the emergency department no high risk changes had improvement with medications aware of findings will be discharged home with outpatient follow-up provided with reasons to return patient agrees with this treatment plan Vital Signs Vital signs: Vital Signs Temperature 97.4 F L 02/02/21 12:23 Pulse Rate 96 02/02/21 12:23 Respiratory Rate 18 02/02/21 12:23 Blood Pressure 133/86 02/02/21 12:23 Pulse Oximetry 100 02/02/21 12:23 Temperature 97.4 F L 02/02/21 12:23 Pulse Rate 80 02/02/21 13:51 Respiratory Rate 16 02/02/21 13:51 Blood Pressure 124/84 02/02/21 13:51 Pulse Oximetry 100 02/02/21 13:51 Medical Decision Making [facility] Narrative Medical decision making narrative: Patient presented with abdominal pain and vomiting history of Crohn's will be discharged home with patient follow-up is afebrile nontoxic-appearing no distress at this time hydrated medicated in the emergency department with improvement of symptoms Vital Signs Vital Signs: Vital Signs Temperature 97.4 F L 02/02/21 12:23 Pulse Rate 96 02/02/21 12:23 Respiratory Rate 18 02/02/21 12:23 Blood Pressure 133/86 02/02/21 12:23 Pulse Oximetry 100 02/02/21 12:23 Temperature 97.4 F L 02/02/21 12:23 Pulse Rate 80 02/02/21 13:51 Resp
[2021-02-02 16:15] VITALS: BP 127/86; PULSE 62; RESP 18; O2SAT 100
== END 2021-02-02 16:16 | disposition home or self-care (01) ==
PROVIDERS: Emergency Medicine; Emergency Provider Emergency Medicine
DX: R10.9 Unspecified abdominal pain (principal); K50.90 Crohn's disease, unspecified, without complications
CPT/HCPCS: 36415; 74177; 80053; 81001; 81025; 83690; 85025; 96361; 96374; 96375; 99284; A9270; J2270; J2765; J7030; J7120; Q9967

== ENCOUNTER 2021-02-05 12:49 | Emergency (ER) | payer OTHER, SELFPAY ==
--- NOTE | ~2021-02-05 | XR_ITS ---
XR abdomen obstructive series DATE: 02/05/2021 14:40 INDICATION: Abdominal pain. Nausea and vomiting. History of Crohn's disease. TECHNIQUE: Supine and upright AP views COMPARISON: 02/02/2021 CT abdomen FINDINGS: The lung bases appear clear. No intraperitoneal free air. No bowel obstruction is evident. The psoas shadows are intact. No visceromegaly or significant abnorm al calcification is noted. IMPRESSION: Nonspecific abdomen Reviewed, dictated and finalized at [facility] Reviewed, dictated and finalized at [facility]. IMPRESSION: Nonspecific abdomen
[2021-02-05 12:51] VITALS: BP 158/118; PULSE 78; RESP 16; TEMP 36.1; O2SAT 100
[2021-02-05 13:33] LABS: Basophils Percent Auto 0.3 % (0.2-1.2); Eosinophils Percent Auto 0.2 % (0-4.4); Hematocrit 40.6 % (37.0-47.0); Hemoglobin 13.1 g/dL (12.0-15.0); Immature Granulocyte Absolute 0.03 K/mm3 (0.00-0.031); Immature Granulocyte Percent A 0.2 % (0-0.5); Lymphocytes Absolute Auto 1.11 K/mm3 (0.9-3.2); Lymphocytes Percent Auto 8.9 % (18.3-44.2); Mean Corpuscular HGB Conc 32.3 g/dl (32-36); Mean Corpuscular Hemoglobin 29.4 pg (26-34); Mean Platelet Volume 9.9 fl (7.4-10.4); Monocytes Absolute Auto 0.5 K/mm3 (0.1-0.6); Monocytes Percent Auto 4.1 % (2.6-8.5); Neutrophils Absolute Auto 10.8 K/mm3 (1.3-6.7); Neutrophils Percent Auto 86.3 % (45.5-73.1); Platelet Count Result 364 k/mm3 (150-375); Red Blood Count 4.46 M/mm3 (4.2-5.4); White Blood Count 12.5 K/mm3 (4.5-10.0)
[2021-02-05 13:44] LABS: Add Urine Microscopic? NO; Appearance Urine Clear (Clear); Bilirubin Urine Negative (Negative); Blood Urine Negative (Negative); Color Urine Yellow (Yellow); Glucose Urine UA Negative (Negative); Ketones Urine Negative (Negative); Leukocyte Esterase Ur Negative LEU/UL (Negative); Nitrate Urine Negative (Negative); Protein Urine Negative (Negative); Specific Grav Ur 1.019 (1.001-1.035); Urobilinogen Urine Negative mg/dL (<2.0)
[2021-02-05 13:48] LABS: Alanine Aminotransferase 14 U/L (4-35); Albumin Level 4.4 g/dL (3.5-5.1); Alkaline Phosphatase 64 U/L (38-126); Anion Gap 8 mmol/L (8-16); Aspartate Amino Transferase 24 U/L (14-36); Bilirubin,Total 0.6 mg/dL (0.2-1.3); Blood Urea Nitrogen 8 mg/dL (7-17); Calcium 9.4 mg/dL (8.4-10.2); Carbon Dioxide 26 mmol/L (22-30); Chloride 109 mmol/L (98-107); Estimated CRCL calculation 86 ml/min; Estimated Glomerular Filt Rate > 60; Glucose 89 mg/dL (65-105); Lipase 51 U/L (23-300); Potassium 3.7 mmol/L (3.4-5.0); Sodium 143 mmol/L (137-145)
[2021-02-05] MEDS: SODIUM CHLORIDE 0.9% IV 1,000 ML 999 ML IV CONT (14:48)
[2021-02-05] MEDS: METOCLOPRAMIDE HCL INJ 10 MG/2 ML VIAL IV PUSH (14:48)
[2021-02-05] MEDS: diphenhydrAMINE HCl INJ 50 MG/ML VIAL 25 MG IV PUSH (14:48)
[2021-02-05] MEDS: MORPHINE SULFATE (*CRX) 2 MG/ML INJ IV PUSH (14:49)
--- NOTE | 2021-02-05 15:00 | ED.GENADULT ---
HPI - General Adult General Chief complaint: Abdominal Pain Stated complaint: abd pain, vomiting, chrohns Time Seen by Provider: 02/05/21 13:33 Source: patient Mode of arrival: ambulatory Limitations: no limitations History of Present Illness HPI narrative: Patient presents for evaluation of abdominal pain. Symptom onset 10:00 this morning upon waking for the day. She indicates she has a history of ulcerative colitis and Crohn's. She states she has exacerbations of IBD about one per month. She states she received a formal diagnosis of IBD in August of this year per Dr. Hernandez. She reports chills, nausea and vomiting. Denies any fever. LMP unknown as she has nexplanon. She states she was evaluated here three days ago and had a CT scan that was negative. She states that zofran helps from time to time. She has prescriptions for mesalamine, Phenergan, Pepcid, hycosamine. She is not sure that these are helping her much. Related Data Allergies Allergy/AdvReac Type Severity Reaction Status Date / Time No Known Allergies Allergy Verified 02/02/21 12:29 Review of Systems Review of Systems: Narrative: CONSTITUTIONAL:Reports chills. Denies fever EYES: Denies visual changes, redness, or discharge. ENT: Denies rhinorrhea, congestion, sore throat, or otalgia. CARDIOVASCULAR: Denies chest pain, palpitations, or edema. RESPIRATORY: Denies cough or dyspnea. GASTROINTESTINAL:Reports abdominal pain, nausea, vomiting. GENITOURINARY: Denies dysuria or hematuria. SKIN: Denies rash or itching. MUSCULOSKELETAL: Denies back pain, joint pain, or myalgia. NEUROLOGIC: Denies headache, numbness, dizziness, or weakness. PSYCHIATRIC: Denies anxiety or depression. 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 She is a lifelong nonsmoker. She does not use any alcohol marijuana or illicit drugs. 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 She lives with family. She desires to be a full code Smoking status: Never smoker Alcohol intake: never Substance use: never Substance use type: does not use Gender identity (if verbalized by the patient): Female Spiritual care concerns: No Exam Narrative: Exam Narrative: GENERAL: Well-appearing, well-nourished, and in no acute distress. HEAD: Normocephalic, atraumatic. EYES: PERRLA and EOMI. ENT: Nares clear, no rhinorrhea or epistaxis. Mucous membranes moist. Oropharynx without tonsillar hypertrophy exudate or other lesions. Bilateral TMs pearly ta nonbulging NECK: Supple. No adenopathy or masses. No carotid bruits or JVD CHEST: Clear to auscultation. No respiratory distress. No wheezes rales or rhonchi HEART: Regular rate and rhythm. No murmur heard. Normal peripheral pulses. ABDOMEN: Soft, diffuse abdominal tenderness without rebound or guarding. Abdomen is nondistended, normal active bowel sounds. EXTREMITIES: Normal range of motion. No edema. SKIN: Warm, dry, no rash. NEURO: No focal deficits. Alert and oriented x3. PSYCH: Tearful Course Course Emergency Course: This is a 20-year-old female who presented with complaints of abdominal pain. She was evaluated in this emergency department on Sunday of this week and had a CT abdomen pelvis was negative for acute pathology.
[2021-02-05 15:24] LABS: Lactic Acid Reflex 1.1 mmol/L (0.7-2.1)
[2021-02-05 15:32] VITALS: BP 130/82; PULSE 89; RESP 18; TEMP 36.6; O2SAT 99
== END 2021-02-05 15:32 | disposition home or self-care (01) ==
PROVIDERS: Emergency Medicine; Emergency Provider Nurse Practitioner; PCP Family Medicine
DX: K52.9 Noninfective gastroenteritis and colitis, unspecified (principal); K50.80 Crohn's disease of both small and large intestine without complications; R10.13 Epigastric pain
CPT/HCPCS: 36415; 74019; 80053; 81003; 81025; 83605; 83690; 85025; 96361; 96374; 96375; 99284; J1200; J2270; J2765; J7030

== ENCOUNTER 2021-02-06 11:25 | Emergency (ER) | payer OTHER, SELFPAY ==
[2021-02-06 11:32] VITALS: BP 147/102; PULSE 88; RESP 18; TEMP 36.4; O2SAT 100
[2021-02-06 11:57] LABS: Basophils Percent Auto 0.2 % (0.2-1.2); Eosinophils Percent Auto 0.1 % (0-4.4); Hematocrit 41.2 % (37.0-47.0); Hemoglobin 13.6 g/dL (12.0-15.0); Immature Granulocyte Absolute 0.03 K/mm3 (0.00-0.031); Immature Granulocyte Percent A 0.2 % (0-0.5); Lymphocytes Absolute Auto 1.59 K/mm3 (0.9-3.2); Lymphocytes Percent Auto 11.8 % (18.3-44.2); Mean Corpuscular Hemoglobin 29.6 pg (26-34); Mean Corpuscular Volume 89.6 fl (80-100); Mean Platelet Volume 9.9 fl (7.4-10.4); Monocytes Absolute Auto 0.6 K/mm3 (0.1-0.6); Monocytes Percent Auto 4.2 % (2.6-8.5); Neutrophils Absolute Auto 11.2 K/mm3 (1.3-6.7); Neutrophils Percent Auto 83.5 % (45.5-73.1); Platelet Count Result 396 k/mm3 (150-375); Red Cell Distribution Width 11.9 % (11.5-14.5); White Blood Count 13.5 K/mm3 (4.5-10.0)
[2021-02-06 12:06] LABS: Alanine Aminotransferase 17 U/L (4-35); Albumin Level 4.8 g/dL (3.5-5.1); Alkaline Phosphatase 69 U/L (38-126); Anion Gap 14 mmol/L (8-16); Aspartate Amino Transferase 26 U/L (14-36); Bilirubin,Total 0.7 mg/dL (0.2-1.3); Blood Urea Nitrogen 6 mg/dL (7-17); Calcium 9.4 mg/dL (8.4-10.2); Carbon Dioxide 21 mmol/L (22-30); Chloride 106 mmol/L (98-107); Estimated CRCL calculation 96 ml/min; Estimated Glomerular Filt Rate > 60; Glucose 106 mg/dL (65-105); Lipase 67 U/L (23-300); Potassium 3.5 mmol/L (3.4-5.0); Sodium 141 mmol/L (137-145)
[2021-02-06 12:15] VITALS: BP 138/106; PULSE 73; RESP 12; O2SAT 98
--- NOTE | 2021-02-06 12:34 | ED.NAVMDI ---
HPI - Nausea/Vomiting/Diarrhea General Chief complaint: Nausea/Vomiting/Diarrhea Stated complaint: N/V Time Seen by Provider: 02/06/21 12:22 Source: patient Mode of arrival: ambulatory Limitations: no limitations History of Present Illness HPI Narrative: This is a 20 year old female that presents to the ER for abdominal pain x 4 days. Reports history of Chron's disease. She used to see Dr. Alberto, but due to insurance reasons has to change her doctor. She is scheduled to see a new GI doctor in [place], but not until next month. She is currently on Mesalamine. Has been seen in the ER twice this week for abdominal discomfort, nausea and vomiting. Denies fever, or blood in the stool. Related Data Allergies Allergy/AdvReac Type Severity Reaction Status Date / Time No Known Allergies Allergy Verified 02/06/21 11:31 Review of Systems Review of Systems: Narrative: CONSTITUTIONAL: Denies fever GASTROINTESTINAL: Reports abdominal pain, nausea, vomiting and diarrhea. GENITOURINARY: Denies dysuria or hematuria. 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 She is a lifelong nonsmoker. She does not use any alcohol marijuana or illicit drugs. She is a full code and she does not have a durable power real estate attorney. She lives with family. She desires to be a full code Smoking status: Never smoker Alcohol intake: never Substance use: never Substance use type: does not use Gender identity (if verbalized by the patient): Female Spiritual care concerns: No Exam Narrative: Exam Narrative: GENERAL: Well-appearing, well-nourished, and in no acute distress. HEAD: Normocephalic, atraumatic. EYES: EOMI. CHEST: Clear to auscultation. No respiratory distress. No wheezes rales or rhonchi HEART: Regular rate and rhythm. No murmur heard. Normal peripheral pulses. ABDOMEN: Soft, nondistended, normal active bowel sounds. Mild tenderness to palpation throughout the mid abdomen, without guarding. No CVA tenderness EXTREMITIES: Normal range of motion. No edema. SKIN: Warm, dry, no rash. NEURO: No focal deficits. Alert and oriented x3. PSYCH: Normal mood and affect RECTAL: Hemoccult negative Course Consultations Consultation #1: Spoke with Dr. Hernandez about patient and workup who recommends steroid taper and Bentyl as needed Date: 02/06/21 Time: 16:43 Vital Signs Vital signs: Vital Signs Temperature 97.6 F 02/06/21 11:32 Pulse Rate 88 02/06/21 11:32 Respiratory Rate 18 02/06/21 11:32 Blood Pressure 147/102 H 02/06/21 11:32 Pulse Oximetry 100 02/06/21 11:32 Temperature 97.6 F 02/06/21 11:32 Pulse Rate 80 02/06/21 16:26 Respiratory Rate 12 02/06/21 16:26 Blood Pressure 112/71 02/06/21 16:26 Pulse Oximetry 98 02/06/21 16:26 MDM - Nausea/Vomiting/Diarrhea MDM Narrative Medical decision making narrative: Patient presents to the emergency department for abdominal pain, nausea and vomiting. Also reporting loose stools. She is afebrile and nontoxic-appearing. Vitals are stable. CBC with mild leukocytosis to 13.5. Metabolic panel with evidence of mild dehydration. Patient hydrated with 2 L of IV fluids in the ED. UA without evidence of infe
[2021-02-06] MEDS: SODIUM CHLORIDE 0.9% IV 1,000 ML 999 ML IV CONT ×2 (12:40→14:22)
[2021-02-06] MEDS: METOCLOPRAMIDE HCL INJ 10 MG/2 ML VIAL IV PUSH (12:40)
[2021-02-06] MEDS: diphenhydrAMINE HCl INJ 50 MG/ML VIAL 25 MG IV PUSH (12:40)
[2021-02-06] MEDS: MORPHINE SULFATE (*CRX) 4 MG/ML INJ IV PUSH (12:40)
[2021-02-06 14:47] VITALS: BP 115/77; PULSE 80; RESP 12; O2SAT 98
[2021-02-06 15:07] LABS: Add Urine Microscopic? YES; Appearance Urine Cloudy (Clear); Bacteria Urine Trace /hpf; Bilirubin Urine Negative (Negative); Blood Urine Negative (Negative); Color Urine Yellow (Yellow); Glucose Urine UA Negative (Negative); Ketones Urine 1+ mg/dL (Negative); Leukocyte Esterase Ur Negative LEU/UL (Negative); Mucus Urine Few /lpf; Nitrate Urine Negative (Negative); Protein Urine 1+ mg/dL (Negative); RBC Urine 0-2 /hpf (0-2); Specific Grav Ur 1.016 (1.001-1.035); Squamous Epithelial Cell Urine Rare /hpf (Few); Urobilinogen Urine Negative mg/dL (<2.0); WBC Urine 0-3 /hpf
[2021-02-06 16:26] VITALS: BP 112/71; PULSE 80; RESP 12; O2SAT 98
[2021-02-06 16:56] VITALS: BP 112/74; PULSE 74; RESP 12; O2SAT 99
== END 2021-02-06 17:05 | disposition home or self-care (01) ==
PROVIDERS: Physician Assistant; Emergency Provider Emergency Medicine; PCP Family Medicine
DX: K50.918 Crohn's disease, unspecified, with other complication (principal)
CPT/HCPCS: 36415; 80053; 81001; 81025; 83690; 85025; 96361; 96374; 96375; 99284; A9270; J1200; J2270; J2765; J7030

== ENCOUNTER 2021-02-06 19:51 | Emergency (ER) | payer OTHER, SELFPAY ==
[2021-02-06 20:02] VITALS: BP 144/89; PULSE 68; RESP 20; TEMP 37; O2SAT 98
[2021-02-06] MEDS: ONDANSETRON HCL ODT 4 MG TABLET PO (22:44)
--- NOTE | 2021-02-06 23:19 | ED.ABDPAIN ---
HPI - Abdominal Pain General Chief Complaint: Abdominal Pain Stated Complaint: abd pain Time Seen by Provider: 02/06/21 22:03 History of Present Illness HPI narrative: Patient is a 20-year-old female who presents ER with nausea and vomiting. Patient seen in the ER a little earlier today. Has history of Crohn's. Was prescribed prednisone as well as dicyclomine. She also has Reglan at home. Patient went to the pharmacy to fill her medications and then picked up some food with her mother. The smell of the medication made her extremely nauseous. She then took some of her medications at home. Short while later she had an episode of emesis and decided to return to the ER. Patient continues to have diffuse abdominal cramping. Patient had a CT scan several days ago that showed no evidence of inflammation within the abdomen. Normal KUB yesterday. No additional imaging performed today. Related Data Allergies Allergy/AdvReac Type Severity Reaction Status Date / Time No Known Allergies Allergy Verified 02/06/21 19:52 Review of Systems Review of Systems: All systems reviewed & are unremarkable except as noted in HPI and below Constitutional: Constitutional: Denies chills, Reports fatigue and Denies fever(s) Gastrointestinal: Gastrointestinal: Reports abdominal pain, Reports diarrhea, Reports nausea and Reports vomiting Genitourinary: Genitourinary: Denies nocturia and Denies dysuria PMFSH Past Medical History Medical History Abdominal pain Clostridioides difficile diarrhea Crohn's ileocolitis Healthy female adult Nausea and vomiting in adult Surgical History Surgical History History of colonoscopy History of esophagogastroduodenoscopy (EGD) Family History Family History Mother Ulcerative colitis Father Anxiety Other Unknown family medical history Social History Social History Social History: 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 She is a lifelong nonsmoker. She does not use any alcohol marijuana or illicit drugs. She is a full code and she does not have a durable power traffic law attorney. She lives with family. She desires to be a full code Smoking status: Never smoker Alcohol intake: never Substance use: never Substance use type: does not use Gender identity (if verbalized by the patient): Female Spiritual care concerns: No Exam Narrative: Exam Narrative: GENERAL: Well-appearing, well-nourished, and in no acute distress. HEAD: Normocephalic, atraumatic. ENT: Mucous membranes moist. CHEST: Clear to auscultation. No respiratory distress. HEART: Regular rate and rhythm. Normal peripheral pulses. ABDOMEN: Soft, diffuse discomfort without guarding or rebound tenderness, nondistended, normal active bowel sounds. EXTREMITIES: Normal range of motion. No edema. SKIN: Warm, dry, no rash. NEURO: Alert and oriented x3. PSYCH: Normal mood and affect. Course Course Emergency Course: Nausea improved with Zofran. Still having cramping abdominal pain. Discussed patient she could take her home medications that she has with her if she is having pain. She has been able to eat and will be discharged. Vital Signs Vital signs: Vital Signs Temperature 98.6 F 02/06/21 20:02 Pulse Rate 68 02/06/21 20:02 Respiratory Rate 20 02/06/21 20:02 Blood Pressure 144/89 H 02/06/21 20:02 Pulse Oximetry 98 02/06/21 20:02 Temperature 98.6 F 02/06/21 20:02 Pulse Rate 60 02/06/21 23:31 Respiratory Rate 18 02/06/21 23:31 Blood Pressure 134/79 02/06/21 23:31 Pulse Oximetry 99 02/06/21 23:31 Discharge Plan Discharge Clinical Impression: Nausea & vomiting Patient Disposition: Home, Self-Care Condition: Stable Instruction
[2021-02-06 23:31] VITALS: BP 134/79; PULSE 60; RESP 18; O2SAT 99
--- NOTE | 2021-02-06 23:50 | PC.NURSE ---
pt denies nausea at this time but reports increased pain. pt took prescription she received earlier of norco and bentyl. pt educted on how norco may take up to 30 min to take effect. okayed with pt discharge.
[2021-02-06 23:58] VITALS: BP 123/78; PULSE 59; RESP 18; O2SAT 100
== END 2021-02-07 00:02 | disposition home or self-care (01) ==
PROVIDERS: Emergency Provider Emergency Medicine
DX: R11.2 Nausea with vomiting, unspecified (principal); K50.90 Crohn's disease, unspecified, without complications
CPT/HCPCS: 99283; A9270